=== PATIENT | male | born 1950 | race Caucasian/White ===

== ENCOUNTER 2020-07-30 10:33 | Outpatient (REF) | payer MEDICARE, SELFPAY | END 2020-07-30 10:34 | disposition home or self-care (01) | LOC: HO.LAB 10:33 | PROVIDERS: PCP Internal Medicine; Visit Provider Internal Medicine | DX: Z95.2 Presence of prosthetic heart valve (principal); Z51.81 Encounter for therapeutic drug level monitoring; Z79.01 Long term (current) use of anticoagulants; Z20.828 Contact with and (suspected) exposure to other viral communicable diseases | CPT/HCPCS: 85610; 87635; 99211 ==

== ENCOUNTER 2020-08-27 11:25 | Outpatient (REF) | payer MEDICARE, SELFPAY | END 2020-08-27 11:26 | disposition home or self-care (01) | LOC: HO.LAB 11:25 | PROVIDERS: Visit Provider Internal Medicine | DX: Z20.828 Contact with and (suspected) exposure to other viral communicable diseases (principal); Z79.01 Long term (current) use of anticoagulants | CPT/HCPCS: 85610; 99211; C9803; U0003 ==

== ENCOUNTER 2020-09-24 09:28 | Outpatient (REF) | payer MEDICARE, SELFPAY | END 2020-09-24 09:29 | disposition home or self-care (01) | LOC: HO.LAB 09:28 | PROVIDERS: Visit Provider Internal Medicine | DX: Z20.828 Contact with and (suspected) exposure to other viral communicable diseases (principal) | CPT/HCPCS: 85610; 99211; C9803; U0003 ==

== ENCOUNTER → 2020-10-22 10:27 | Outpatient (BNVA) | payer MEDICARE, SELFPAY | PROVIDERS: PCP Internal Medicine; Visit Provider Internal Medicine | DX: Z76.89 Persons encountering health services in other specified circumstances (principal) | CPT/HCPCS: 85610; 99211 ==

== ENCOUNTER 2020-10-22 11:28 | Outpatient (REF) | payer MEDICARE, SELFPAY | END 2020-10-22 11:29 | disposition home or self-care (01) | LOC: HO.LAB 11:28 | PROVIDERS: PCP Internal Medicine; Visit Provider Internal Medicine | DX: Z20.828 Contact with and (suspected) exposure to other viral communicable diseases (principal) | CPT/HCPCS: 85610; 99211; C9803; U0003 ==

== ENCOUNTER 2020-11-17 10:12 | Outpatient (REF) | payer MEDICARE, SELFPAY ==
[2020-11-17 10:46] LABS: MANUAL DIFF FLAG NO
[2020-11-17 10:54] LABS: Basophils Percent Auto 0.7 % (0-2); Eosinophils Absolute Auto 0.4 X10*3/uL (0.0-0.4); Eosinophils Percent Auto 7.8 % (0-4); Hematocrit 40.3 % (42-52); Hemoglobin 13.2 g/dl (14.0-18.0); Imm Gran Abs Auto 0.02 X10*3/uL (0.00-0.03); Imm Gran Pct Auto 0.4 % (0.0-0.4); Lymphocytes Absolute Auto 1.2 X10*3/uL (1.2-4.9); Lymphocytes Percent Auto 26.8 % (20-40); Mean Corpuscular HGB Conc 32.8 g/dl (31.0-36.0); Mean Corpuscular Hemoglobin 28.7 pg (27.0-33.0); Mean Corpuscular Volume 87.6 fL (80-98); Mean Platelet Volume 10.3 fL (9.4-12.4); Monocytes Absolute Auto 0.6 X10*3/uL (0.1-1.2); Monocytes Percent Auto 13.7 % (2-11); Neutrophils Absolute Auto 2.3 X10*3/uL (2.0-8.3); Neutrophils Percent Auto 50.6 % (45-73); Platelet Count 173 X10*3/uL (160-400); Red Cell Distribution Width 12.8 % (11.0-16.0); White Blood Count 4.6 X10*3/uL (4.8-10.8)
[2020-11-17 10:59] LABS: Glucose Urine UA NEG (NEG); Leukocyte Esterase Urine NEG (NEG); Nitrite Urine NEG (NEG); Specific Gravity - Urine 1.025 (1.005-1.025); Urine Blood NEG (NEG); Urine Ketones NEG (NEG); Urine Protein NEG (NEG-TRACE)
[2020-11-17 11:01] LABS: Appearance Urine CLEAR; Color Urine YELLOW
[2020-11-17 11:37] LABS: Alanine Aminotransferase 21 U/L (0-40); Albumin Level 4.4 g/dL (3.5-5.0); Alkaline Phosphatase 63 U/L (39-117); Anion Gap 12 (12-20); Aspartate Amino Transferase 28 U/L (5-37); Bilirubin Total 0.9 mg/dL (0.0-1.0); Blood Urea Nitrogen 15 mg/dL (9-16); Calcium 9.3 mg/dL (8.4-10.2); Carbon Dioxide 30 mmol/L (22-29); Chloride 102 mmol/L (96-108); Cholesterol 161 mg/dL; Estimated Glomerular Filt Rate > 60; Glucose Random 92 mg/dL (60-115); HDL Cholesterol 48 mg/dL; LDL Cholesterol Calculated 102 mg/dl; Potassium 4.6 mmol/l (3.3-5.1); Sodium 139 mmol/L (135-145); Total Protein 7.5 g/dL (6.5-8.0); Triglycerides 57 mg/dL
[2020-11-17 11:46] LABS: Prostate Specific Antigen 0.77 ng/mL (<0.05-4.0)
== END 2020-11-17 10:13 | disposition home or self-care (01) ==
LOC: HO.LAB 10:12
PROVIDERS: PCP Internal Medicine; Referring Provider Internal Medicine Cardiovascular Disease; Visit Provider Internal Medicine
DX: E78.2 Mixed hyperlipidemia (principal); E78.00 Pure hypercholesterolemia, unspecified; R35.1 Nocturia; D64.9 Anemia, unspecified; Z12.5 Encounter for screening for malignant neoplasm of prostate; Z95.2 Presence of prosthetic heart valve
CPT/HCPCS: 36415; 80053; 80061; 81003; 84153; 85025

== ENCOUNTER → 2020-11-20 09:58 | Outpatient (BNVA) | payer MEDICARE, SELFPAY | PROVIDERS: PCP Internal Medicine; Visit Provider Internal Medicine | DX: Z95.2 Presence of prosthetic heart valve (principal); Z51.81 Encounter for therapeutic drug level monitoring; Z79.01 Long term (current) use of anticoagulants | CPT/HCPCS: 85610; 99211 ==

== ENCOUNTER → 2020-12-18 10:04 | Outpatient (BNVA) | payer MEDICARE, SELFPAY | PROVIDERS: PCP Internal Medicine; Visit Provider Internal Medicine | DX: Z95.2 Presence of prosthetic heart valve (principal); Z51.81 Encounter for therapeutic drug level monitoring; Z79.01 Long term (current) use of anticoagulants | CPT/HCPCS: 85610; 99211 ==

== ENCOUNTER 2020-12-30 11:48 | Outpatient (REF) | payer MEDICARE, SELFPAY | END 2020-12-30 11:49 | disposition home or self-care (01) | LOC: HO.LAB 11:48 | PROVIDERS: Visit Provider Internal Medicine | DX: Z20.822 Contact with and (suspected) exposure to COVID-19 (principal) | CPT/HCPCS: 36415; C9803; U0003; U0005 ==

== ENCOUNTER → 2021-01-15 10:13 | Outpatient (BNVA) | payer MEDICARE, SELFPAY | PROVIDERS: PCP Internal Medicine; Visit Provider Internal Medicine | DX: Z95.2 Presence of prosthetic heart valve (principal); Z51.81 Encounter for therapeutic drug level monitoring; Z79.01 Long term (current) use of anticoagulants | CPT/HCPCS: 85610; 99211 ==

== ENCOUNTER → 2021-02-12 09:59 | Outpatient (BNVA) | payer MEDICARE, SELFPAY | PROVIDERS: PCP Internal Medicine; Visit Provider Internal Medicine | DX: Z95.2 Presence of prosthetic heart valve (principal); Z79.01 Long term (current) use of anticoagulants; Z51.81 Encounter for therapeutic drug level monitoring | CPT/HCPCS: 85610; 99211 ==

== ENCOUNTER → 2021-02-25 10:13 | Outpatient (BNVA) | payer MEDICARE, SELFPAY | PROVIDERS: PCP Internal Medicine; Visit Provider Internal Medicine | DX: Z95.2 Presence of prosthetic heart valve (principal); Z51.81 Encounter for therapeutic drug level monitoring; Z79.01 Long term (current) use of anticoagulants | CPT/HCPCS: 85610; 99211 ==

== ENCOUNTER 2021-03-18 10:48 | Outpatient (REF) | payer MEDICARE, SELFPAY ==
[2021-03-18 13:18] LABS: MANUAL DIFF FLAG NO
[2021-03-18 13:23] LABS: Basophils Percent Auto 0.9 % (0-2); Eosinophils Absolute Auto 0.4 X10*3/uL (0.0-0.4); Hematocrit 38.2 % (42-52); Hemoglobin 12.6 g/dl (14.0-18.0); Lymphocytes Absolute Auto 1.1 X10*3/uL (1.2-4.9); Lymphocytes Percent Auto 25.6 % (20-40); Mean Corpuscular Hemoglobin 29.4 pg (27.0-33.0); Mean Corpuscular Volume 89.3 fL (80-98); Mean Platelet Volume 11.5 fL (9.4-12.4); Monocytes Absolute Auto 0.6 X10*3/uL (0.1-1.2); Neutrophils Absolute Auto 2.2 X10*3/uL (2.0-8.3); Neutrophils Percent Auto 50.5 % (45-73); Platelet Count 170 X10*3/uL (160-400); Red Blood Count 4.28 X10*6/uL (4.60-5.80); Red Cell Distribution Width 12.8 % (11.0-16.0); White Blood Count 4.4 X10*3/uL (4.8-10.8)
[2021-03-18 13:44] LABS: Alanine Aminotransferase 19 U/L (0-40); Albumin Level 4.4 g/dL (3.5-5.0); Alkaline Phosphatase 59 U/L (39-117); Anion Gap 12 (12-20); Aspartate Amino Transferase 29 U/L (5-37); Bilirubin Total 0.7 mg/dL (0.0-1.0); Blood Urea Nitrogen 14 mg/dL (9-16); Calcium 9.2 mg/dL (8.4-10.2); Carbon Dioxide 29 mmol/L (22-29); Chloride 102 mmol/L (96-108); Estimated Glomerular Filt Rate > 60; Glucose Random 84 mg/dL (60-115); Iron 64 mcg/dL (45-160); Percent Iron Saturation 22 % (15-50); Potassium 4.6 mmol/L (3.3-5.1); Sodium 138 mmol/L (135-145); Total Iron Binding Capacity 285 mcg/dL (228-428); Total Protein 7.4 g/dL (6.5-8.0); Unsaturated Iron Binding 221 ug/dL
== END 2021-03-18 10:49 | disposition home or self-care (01) ==
LOC: HO.10HDL 10:48
PROVIDERS: Visit Provider Internal Medicine
DX: K21.9 Gastro-esophageal reflux disease without esophagitis (principal); D64.9 Anemia, unspecified; Z95.2 Presence of prosthetic heart valve
CPT/HCPCS: 36415; 80053; 83540; 85025

== ENCOUNTER → 2021-03-25 10:01 | Outpatient (BNVA) | payer MEDICARE, SELFPAY | PROVIDERS: PCP Internal Medicine; Visit Provider Internal Medicine | DX: Z95.2 Presence of prosthetic heart valve (principal); Z51.81 Encounter for therapeutic drug level monitoring; Z79.01 Long term (current) use of anticoagulants | CPT/HCPCS: 85610; 99211 ==

== ENCOUNTER → 2021-04-22 09:56 | Outpatient (BNVA) | payer MEDICARE, SELFPAY | PROVIDERS: PCP Internal Medicine; Visit Provider Internal Medicine | DX: Z95.2 Presence of prosthetic heart valve (principal); Z51.81 Encounter for therapeutic drug level monitoring; Z79.01 Long term (current) use of anticoagulants | CPT/HCPCS: 85610; 99211 ==

== ENCOUNTER → 2021-05-20 10:17 | Outpatient (BNVA) | payer MEDICARE, SELFPAY | PROVIDERS: PCP Internal Medicine; Visit Provider Internal Medicine | DX: Z95.2 Presence of prosthetic heart valve (principal); Z51.81 Encounter for therapeutic drug level monitoring; Z79.01 Long term (current) use of anticoagulants | CPT/HCPCS: 85610; 99211 ==

== ENCOUNTER → 2021-06-17 10:18 | Outpatient (BNVA) | payer MEDICARE, SELFPAY | PROVIDERS: PCP Internal Medicine; Visit Provider Internal Medicine | DX: Z95.2 Presence of prosthetic heart valve (principal); Z51.81 Encounter for therapeutic drug level monitoring; Z79.01 Long term (current) use of anticoagulants | CPT/HCPCS: 85610; 99211 ==

== ENCOUNTER 2021-07-15 11:18 | Outpatient (REF) | payer MEDICARE, SELFPAY ==
[2021-07-15 14:29] LABS: MANUAL DIFF FLAG NO
[2021-07-15 14:47] LABS: Basophils Percent Auto 0.8 % (0-2); Eosinophils Absolute Auto 0.3 X10*3/uL (0.0-0.4); Eosinophils Percent Auto 7.5 % (0-4); Hematocrit 35.5 % (42-52); Hemoglobin 11.7 g/dl (14.0-18.0); Imm Gran Abs Auto 0.01 X10*3/uL (0.00-0.03); Imm Gran Pct Auto 0.3 % (0.0-0.4); Lymphocytes Absolute Auto 1.1 X10*3/uL (1.2-4.9); Lymphocytes Percent Auto 26.5 % (20-40); Mean Corpuscular Hemoglobin 29.1 pg (27.0-33.0); Mean Corpuscular Volume 88.3 fL (80-98); Mean Platelet Volume 11.4 fL (9.4-12.4); Monocytes Absolute Auto 0.6 X10*3/uL (0.1-1.2); Monocytes Percent Auto 15.8 % (2-11); Neutrophils Percent Auto 49.1 % (45-73); Platelet Count 173 X10*3/uL (160-400); Red Blood Count 4.02 X10*6/uL (4.60-5.80); Red Cell Distribution Width 12.9 % (11.0-16.0)
[2021-07-15 15:07] LABS: Anion Gap 11 (12-20); Blood Urea Nitrogen 16 mg/dL (9-16); Carbon Dioxide 28 mmol/L (22-29); Chloride 104 mmol/L (96-108); Estimated Glomerular Filt Rate > 60; Glucose Random 83 mg/dL (60-115); Potassium 4.3 mmol/L (3.3-5.1); Sodium 139 mmol/L (135-145)
== END 2021-07-15 11:19 | disposition home or self-care (01) ==
LOC: HO.10HDL 11:18
PROVIDERS: Visit Provider Internal Medicine
DX: D64.9 Anemia, unspecified (principal); Z95.2 Presence of prosthetic heart valve
CPT/HCPCS: 36415; 80048; 85025

== ENCOUNTER → 2021-07-16 09:55 | Outpatient (BNVA) | payer MEDICARE, SELFPAY | PROVIDERS: PCP Internal Medicine; Visit Provider Internal Medicine | DX: Z95.2 Presence of prosthetic heart valve (principal); Z51.81 Encounter for therapeutic drug level monitoring; Z79.01 Long term (current) use of anticoagulants | CPT/HCPCS: 85610; 99211 ==

== ENCOUNTER → 2021-08-13 10:11 | Outpatient (BNVA) | payer MEDICARE, SELFPAY | PROVIDERS: PCP Internal Medicine; Visit Provider Internal Medicine | DX: Z95.2 Presence of prosthetic heart valve (principal); Z51.81 Encounter for therapeutic drug level monitoring; Z79.01 Long term (current) use of anticoagulants | CPT/HCPCS: 85610; 99211 ==

== ENCOUNTER → 2021-09-10 10:11 | Outpatient (BNVA) | payer MEDICARE, SELFPAY | PROVIDERS: PCP Internal Medicine; Visit Provider Internal Medicine | DX: Z95.2 Presence of prosthetic heart valve (principal); Z51.81 Encounter for therapeutic drug level monitoring; Z79.01 Long term (current) use of anticoagulants | CPT/HCPCS: 85610; 99211 ==

== ENCOUNTER → 2021-10-08 09:57 | Outpatient (BNVA) | payer MEDICARE, SELFPAY | PROVIDERS: PCP Internal Medicine; Visit Provider Internal Medicine | DX: Z95.2 Presence of prosthetic heart valve (principal); Z51.81 Encounter for therapeutic drug level monitoring; Z79.01 Long term (current) use of anticoagulants | CPT/HCPCS: 85610; 99211 ==

== ENCOUNTER 2021-10-13 14:19 | Outpatient (REF) | payer MEDICARE, SELFPAY ==
[2021-10-13 15:10] LABS: Influenza A PCR NEGATIVE (Negative); Influenza B PCR NEGATIVE (Negative); Resp Syncy Virus RNA Qual PCR NEGATIVE (Negative); SARS COV2 PCR INHOUSE NEGATIVE (Negative)
== END 2021-10-13 14:20 | disposition home or self-care (01) ==
LOC: HO.LNP 14:19
PROVIDERS: Visit Provider Internal Medicine
DX: Z20.822 Contact with and (suspected) exposure to COVID-19 (principal)
CPT/HCPCS: 0241U

== ENCOUNTER → 2021-11-05 09:59 | Outpatient (BNVA) | payer MEDICARE, SELFPAY | PROVIDERS: PCP Internal Medicine; Visit Provider Internal Medicine | DX: Z95.2 Presence of prosthetic heart valve (principal); Z51.81 Encounter for therapeutic drug level monitoring; Z79.01 Long term (current) use of anticoagulants | CPT/HCPCS: 85610; 99211 ==

== ENCOUNTER → 2021-12-03 09:57 | Outpatient (BNVA) | payer MEDICARE, SELFPAY | PROVIDERS: PCP Internal Medicine; Visit Provider Internal Medicine | DX: Z95.2 Presence of prosthetic heart valve (principal); Z51.81 Encounter for therapeutic drug level monitoring; Z79.01 Long term (current) use of anticoagulants | CPT/HCPCS: 85610; 99211 ==

== ENCOUNTER → 2021-12-31 10:03 | Outpatient (BNVA) | payer MEDICARE, SELFPAY | PROVIDERS: PCP Internal Medicine; Visit Provider Internal Medicine | DX: Z95.2 Presence of prosthetic heart valve (principal); Z51.81 Encounter for therapeutic drug level monitoring; Z79.01 Long term (current) use of anticoagulants | CPT/HCPCS: 85610; 99211 ==

== ENCOUNTER 2022-01-28 10:03 | Outpatient (REF) | payer MEDICARE, SELFPAY ==
[2022-01-28 11:04] LABS: MANUAL DIFF FLAG NO
[2022-01-28 11:52] LABS: INTERNATIONAL NORM RATIO 3.8 (0.9-1.1); Prothrombin Time 44.7 SEC (9.9-13.0)
[2022-01-28 12:00] LABS: Basophils Percent Auto 0.4 % (0-2); Eosinophils Absolute Auto 0.4 X10*3/uL (0.0-0.4); Eosinophils Percent Auto 9.3 % (0-4); Hematocrit 36.4 % (42.0-52.0); Imm Gran Abs Auto 0.01 X10*3/uL (0.00-0.03); Imm Gran Pct Auto 0.2 % (0.0-0.4); Lymphocytes Absolute Auto 1.2 X10*3/uL (1.2-4.9); Lymphocytes Percent Auto 26.2 % (20-40); Mean Corpuscular Hemoglobin 29.1 pg (27.0-33.0); Mean Corpuscular Volume 88.3 fL (80.0-98.0); Mean Platelet Volume 11.2 fL (9.4-12.4); Monocytes Absolute Auto 0.6 X10*3/uL (0.1-1.2); Monocytes Percent Auto 11.9 % (2-11); Neutrophils Absolute Auto 2.4 x10*3/uL (2.0-8.3); Platelet Count 151 X10*3/uL (160-400); Red Blood Count 4.12 X10*6/uL (4.60-5.80); White Blood Count 4.6 X10*3/uL (4.8-10.8)
[2022-01-28 12:09] LABS: Alanine Aminotransferase 23 U/L (0-40); Albumin Level 4.2 g/dL (3.5-5.0); Alkaline Phosphatase 56 U/L (39-117); Anion Gap 8 (12-20); Aspartate Amino Transferase 28 U/L (5-37); Bilirubin Total 0.6 mg/dL (0.0-1.0); Blood Urea Nitrogen 16 mg/dL (9-16); Calcium 9.2 mg/dL (8.4-10.2); Carbon Dioxide 31 mmol/L (22-29); Chloride 103 mmol/L (96-108); Cholesterol 154 mg/dL; Estimated Glomerular Filt Rate > 60; Glucose Fasting 89 mg/dL (60-99); HDL Cholesterol 45 mg/dL; Iron 47 mcg/dL (45-160); LDL Cholesterol Calculated 96 mg/dl; Percent Iron Saturation 17 % (15-50); Potassium 4.2 mmol/L (3.3-5.1); Sodium 138 mmol/L (135-145); Total Iron Binding Capacity 269 mcg/dL (228-428); Triglycerides 66 mg/dL; Unsaturated Iron Binding 222 ug/dL
[2022-01-28 12:27] LABS: Prostate Specific Antigen 0.86 ng/mL (<0.05-4.0)
== END 2022-01-28 10:04 | disposition home or self-care (01) ==
LOC: HO.LAB 10:03
PROVIDERS: Absent Provider Internal Medicine; PCP Internal Medicine; Visit Provider Internal Medicine
DX: Z12.5 Encounter for screening for malignant neoplasm of prostate (principal); E78.00 Pure hypercholesterolemia, unspecified; N40.0 Benign prostatic hyperplasia without lower urinary tract symptoms; D64.9 Anemia, unspecified; I48.91 Unspecified atrial fibrillation; Z95.2 Presence of prosthetic heart valve; Z51.81 Encounter for therapeutic drug level monitoring; Z79.01 Long term (current) use of anticoagulants
CPT/HCPCS: 36415; 80053; 80061; 83540; 84153; 85025; 85610; 99211

== ENCOUNTER → 2022-02-25 10:08 | Outpatient (BNVA) | payer MEDICARE, SELFPAY | PROVIDERS: PCP Internal Medicine; Visit Provider Internal Medicine | DX: Z95.2 Presence of prosthetic heart valve (principal); Z79.01 Long term (current) use of anticoagulants; Z51.81 Encounter for therapeutic drug level monitoring | CPT/HCPCS: 85610; 99211 ==

== ENCOUNTER → 2022-03-25 10:04 | Outpatient (BNVA) | payer MEDICARE, SELFPAY | PROVIDERS: PCP Internal Medicine; Visit Provider Internal Medicine | DX: Z95.2 Presence of prosthetic heart valve (principal); Z79.01 Long term (current) use of anticoagulants; Z51.81 Encounter for therapeutic drug level monitoring | CPT/HCPCS: 85610; 99211 ==

== ENCOUNTER → 2022-04-22 09:56 | Outpatient (BNVA) | payer MEDICARE, SELFPAY | PROVIDERS: PCP Internal Medicine; Visit Provider Internal Medicine | DX: Z95.2 Presence of prosthetic heart valve (principal); Z51.81 Encounter for therapeutic drug level monitoring; Z79.01 Long term (current) use of anticoagulants | CPT/HCPCS: 85610; 99211 ==

== ENCOUNTER 2022-04-29 11:57 | Outpatient (REF) | payer MEDICARE, SELFPAY ==
[2022-04-29 13:06] LABS: Blood Urea Nitrogen 19 mg/dL (9-16); Estimated Glomerular Filt Rate > 60
== END 2022-04-29 11:58 | disposition home or self-care (01) ==
LOC: HO.LAB 11:57
PROVIDERS: PCP Internal Medicine; Visit Provider Internal Medicine Cardiovascular Disease
DX: I71.2 Thoracic aortic aneurysm, without rupture (principal)
CPT/HCPCS: 36415; 82565; 84520

== ENCOUNTER 2022-05-03 07:52 | Outpatient (REF) | payer MEDICARE, SELFPAY ==
--- NOTE | ~2022-05-03 | CT_ITS ---
EXAMINATION: CT ANGIOGRAM CHEST CLINICAL INFORMATION: Thoracic aortic aneurysm. COMPARISON: Multiple prior chest radiographs and prior CTA chest 03/22/2018 with studies dating back to 10/11/2013. TECHNIQUE: Multiple axial images were obtained through the chest after the administration of 70 mL of Omnipaque 350 intravenous contrast. Extensive vascular post-processing including two-dimensional and three-dimensional reformatted images were created and reviewed on an independent workstation. This CT examination was performed using dose optimization techniques as appropriate, variously including the following: *Automated exposure control *Adjustment of mA and/or kV according to patient size (this includes techniques or standardized protocols for targeted exams where dose is matched to indication/reason for exam; i.e. extremities or head) *Use of iterative reconstruction technique DLP: 98 mGy-cm. VASCULAR FINDINGS: Once again seen are changes of repaired ascending aortic aneurysm with graft and placement of a prosthetic aortic valve. Compared to the most recent prior studies, there has been no recurrence of an aneurysm in diameter of the ascending aorta is about the same at 2.7 cm. Prior to the repair in 2012, the diameter of the [place] ascending aorta was 5 cm. The descending thoracic aorta remains normal in caliber. Three-vessel branching pattern of the aortic arch is seen with widely patent great vessels. The small visualized portion of the abdominal aorta demonstrates some mild calcific plaque. A minimal arcuate-type narrowing of the celiac stenosis is present without significant stenosis. The SMA is patent. Single patent renal arteries are seen bilaterally. NONVASCULAR FINDINGS: LUNGS: The lungs are clear with no evidence of inflammation or nodules. MEDIASTINUM: No mediastinal or hilar lymphadenopathy seen. Patient status post median sternotomy and ascending aorta repair as described above. PLEURA: There is no pleural effusion. No pleural mass or thickening. AXILLA: No lymphadenopathy. UPPER ABDOMEN: Unremarkable. OSSEOUS STRUCTURES: Mild degenerative changes present in the spine. There is mild anterior wedging of the T12 vertebral body. CT/CT angio chest aorta IMPRESSION: Stable repair of ascending thoracic aortic aneurysm. Fleischner guidelines were followed.
[2022-05-03] MEDS: iohexoL 350 MG/ML 100 ML INFUS..BTL IV (08:45)
== END 2022-05-03 07:53 | disposition home or self-care (01) ==
LOC: HO.CT 07:52
PROVIDERS: PCP Internal Medicine; Visit Provider Internal Medicine Cardiovascular Disease
DX: I71.2 Thoracic aortic aneurysm, without rupture (principal)
CPT/HCPCS: 71275; Q9967

== ENCOUNTER → 2022-05-20 09:58 | Outpatient (BNVA) | payer MEDICARE, SELFPAY | PROVIDERS: PCP Internal Medicine; Visit Provider Internal Medicine | DX: Z95.2 Presence of prosthetic heart valve (principal); Z79.01 Long term (current) use of anticoagulants; Z51.81 Encounter for therapeutic drug level monitoring | CPT/HCPCS: 85610; 99211 ==

== ENCOUNTER → 2022-06-17 10:27 | Outpatient (BNVA) | payer MEDICARE, SELFPAY | PROVIDERS: PCP Internal Medicine; Visit Provider Internal Medicine | DX: Z95.2 Presence of prosthetic heart valve (principal); Z79.01 Long term (current) use of anticoagulants; Z51.81 Encounter for therapeutic drug level monitoring | CPT/HCPCS: 85610; 99211 ==

== ENCOUNTER 2022-07-13 11:37 | Outpatient (REF) | payer MEDICARE, SELFPAY ==
[2022-07-13 13:38] LABS: MANUAL DIFF FLAG NO
[2022-07-13 13:44] LABS: Basophils Percent Auto 0.6 % (0-2); Eosinophils Absolute Auto 0.4 X10*3/uL (0.0-0.4); Eosinophils Percent Auto 8.1 % (0-4); Hematocrit 37.8 % (42.0-52.0); Hemoglobin 12.4 g/dl (14.0-18.0); Imm Gran Abs Auto 0.01 X10*3/uL (0.00-0.03); Imm Gran Pct Auto 0.2 % (0.0-0.4); Lymphocytes Absolute Auto 1.2 X10*3/uL (1.2-4.9); Mean Corpuscular HGB Conc 32.8 g/dl (31.0-36.0); Mean Corpuscular Hemoglobin 28.7 pg (27.0-33.0); Mean Corpuscular Volume 87.5 fL (80.0-98.0); Mean Platelet Volume 11.4 fL (9.4-12.4); Monocytes Absolute Auto 0.7 X10*3/uL (0.1-1.2); Monocytes Percent Auto 13.9 % (2-11); Neutrophils Absolute Auto 2.4 x10*3/uL (2.0-8.3); Neutrophils Percent Auto 51.2 % (45-73); Platelet Count 165 X10*3/uL (160-400); Red Blood Count 4.32 X10*6/uL (4.60-5.80); Red Cell Distribution Width 12.9 % (11.0-16.0); White Blood Count 4.7 X10*3/uL (4.8-10.8)
[2022-07-13 13:59] LABS: Iron 78 mcg/dL (45-160); Percent Iron Saturation 25 % (15-50); Total Iron Binding Capacity 318 mcg/dL (228-428); Unsaturated Iron Binding 240 ug/dL
== END 2022-07-13 11:38 | disposition home or self-care (01) ==
LOC: HO.10HDL 11:37
PROVIDERS: Visit Provider Internal Medicine
DX: D64.9 Anemia, unspecified (principal); I48.0 Paroxysmal atrial fibrillation; Z95.2 Presence of prosthetic heart valve
CPT/HCPCS: 36415; 83540; 85025

== ENCOUNTER → 2022-07-15 09:57 | Outpatient (BNVA) | payer MEDICARE, SELFPAY | PROVIDERS: PCP Internal Medicine; Visit Provider Internal Medicine | DX: Z95.2 Presence of prosthetic heart valve (principal); Z79.01 Long term (current) use of anticoagulants; Z51.81 Encounter for therapeutic drug level monitoring | CPT/HCPCS: 85610; 99211 ==

== ENCOUNTER → 2022-08-12 09:57 | Outpatient (BNVA) | payer MEDICARE, SELFPAY | PROVIDERS: PCP Internal Medicine; Visit Provider Internal Medicine | DX: Z95.2 Presence of prosthetic heart valve (principal); Z79.01 Long term (current) use of anticoagulants; Z51.81 Encounter for therapeutic drug level monitoring | CPT/HCPCS: 85610; 99211 ==

== ENCOUNTER → 2022-09-09 09:56 | Outpatient (BNVA) | payer MEDICARE, SELFPAY | PROVIDERS: PCP Internal Medicine; Visit Provider Internal Medicine | DX: Z95.2 Presence of prosthetic heart valve (principal); Z79.01 Long term (current) use of anticoagulants; Z51.81 Encounter for therapeutic drug level monitoring | CPT/HCPCS: 85610; 99211 ==

== ENCOUNTER → 2022-09-30 09:58 | Outpatient (BNVA) | payer MEDICARE, SELFPAY | PROVIDERS: PCP Internal Medicine; Visit Provider Internal Medicine | DX: Z95.2 Presence of prosthetic heart valve (principal); Z79.01 Long term (current) use of anticoagulants; Z51.81 Encounter for therapeutic drug level monitoring | CPT/HCPCS: 85610; 99211 ==

== ENCOUNTER → 2022-10-28 09:56 | Outpatient (BNVA) | payer MEDICARE, BC, SELFPAY | PROVIDERS: PCP Internal Medicine; Visit Provider Internal Medicine | DX: Z95.2 Presence of prosthetic heart valve (principal); Z79.01 Long term (current) use of anticoagulants; Z51.81 Encounter for therapeutic drug level monitoring | CPT/HCPCS: 85610; 99211 ==

== ENCOUNTER → 2022-11-25 10:07 | Outpatient (BNVA) | payer MEDICARE, SELFPAY | PROVIDERS: PCP Internal Medicine; Visit Provider Internal Medicine | DX: Z95.2 Presence of prosthetic heart valve (principal); Z79.01 Long term (current) use of anticoagulants; Z51.81 Encounter for therapeutic drug level monitoring | CPT/HCPCS: 85610; 99211 ==

== ENCOUNTER → 2022-12-16 09:56 | Outpatient (BNVA) | payer MEDICARE, SELFPAY | PROVIDERS: PCP Internal Medicine; Visit Provider Internal Medicine | DX: Z95.2 Presence of prosthetic heart valve (principal); Z79.01 Long term (current) use of anticoagulants; Z51.81 Encounter for therapeutic drug level monitoring | CPT/HCPCS: 85610; 99211 ==

== ENCOUNTER → 2022-12-30 09:57 | Outpatient (BNVA) | payer MEDICARE, SELFPAY | PROVIDERS: PCP Internal Medicine; Visit Provider Internal Medicine | DX: Z00.00 Encounter for general adult medical examination without abnormal findings (principal); Z95.2 Presence of prosthetic heart valve; Z51.81 Encounter for therapeutic drug level monitoring; Z79.01 Long term (current) use of anticoagulants; Z12.5 Encounter for screening for malignant neoplasm of prostate | CPT/HCPCS: 36415; 80053; 80061; 84153; 85025; 85610; 99211 ==

== ENCOUNTER 2022-12-30 10:42 | Outpatient (REF) | payer MEDICARE, SELFPAY ==
[2022-12-30 13:39] LABS: MANUAL DIFF FLAG NO
[2022-12-30 13:56] LABS: Basophils Percent Auto 0.7 % (0-2); Eosinophils Absolute Auto 0.6 X10*3/uL (0.0-0.4); Eosinophils Percent Auto 13.8 % (0-4); Hematocrit 37.2 % (42.0-52.0); Hemoglobin 12.2 g/dl (14.0-18.0); Imm Gran Abs Auto 0.01 X10*3/uL (0.00-0.03); Imm Gran Pct Auto 0.2 % (0.0-0.4); Lymphocytes Absolute Auto 1.2 X10*3/uL (1.2-4.9); Lymphocytes Percent Auto 26.6 % (20-40); Mean Corpuscular HGB Conc 32.8 g/dl (31.0-36.0); Mean Corpuscular Hemoglobin 28.8 pg (27.0-33.0); Mean Corpuscular Volume 87.9 fL (80.0-98.0); Monocytes Absolute Auto 0.6 X10*3/uL (0.1-1.2); Monocytes Percent Auto 12.3 % (2-11); Neutrophils Absolute Auto 2.1 x10*3/uL (2.0-8.3); Neutrophils Percent Auto 46.4 % (45-73); Platelet Count 155 X10*3/uL (160-400); Red Blood Count 4.23 X10*6/uL (4.60-5.80); White Blood Count 4.6 X10*3/uL (4.8-10.8)
[2022-12-30 15:50] LABS: Alanine Aminotransferase 22 U/L (0-40); Albumin Level 4.1 g/dL (3.5-5.0); Alkaline Phosphatase 54 U/L (39-117); Anion Gap 11 (12-20); Aspartate Amino Transferase 27 U/L (5-37); Bilirubin Total 0.8 mg/dL (0.0-1.0); Blood Urea Nitrogen 18 mg/dL (9-16); Calcium 8.9 mg/dL (8.4-10.2); Carbon Dioxide 30 mmol/L (22-29); Chloride 104 mmol/L (96-108); Cholesterol 163 mg/dL; Estimated Glomerular Filt Rate > 60; Glucose Fasting 89 mg/dL (60-99); HDL Cholesterol 47 mg/dL; LDL Cholesterol Calculated 102 mg/dl; Potassium 4.1 mmol/L (3.3-5.1); Sodium 141 mmol/L (135-145); Total Protein 6.7 g/dL (6.5-8.0); Triglycerides 73 mg/dL
[2022-12-30 16:14] LABS: Prostate Specific Antigen Scr 0.86 ng/mL (<0.05-4.0)
== END 2022-12-30 10:43 | disposition home or self-care (01) ==
LOC: HO.10HDL 10:42
PROVIDERS: Visit Provider Internal Medicine
DX: Z13.89 Encounter for screening for other disorder (principal)
CPT/HCPCS: 36415; 80053; 80061; 84153; 85025

== ENCOUNTER → 2023-01-27 09:58 | Outpatient (BNVA) | payer MEDICARE, SELFPAY | PROVIDERS: PCP Internal Medicine; Visit Provider Internal Medicine | DX: Z95.2 Presence of prosthetic heart valve (principal); Z51.81 Encounter for therapeutic drug level monitoring; Z79.01 Long term (current) use of anticoagulants | CPT/HCPCS: 85610; 99211 ==

== ENCOUNTER → 2023-02-24 09:54 | Outpatient (BNVA) | payer MEDICARE, SELFPAY | PROVIDERS: PCP Internal Medicine; Visit Provider Internal Medicine | DX: Z95.2 Presence of prosthetic heart valve (principal); Z79.01 Long term (current) use of anticoagulants; Z51.81 Encounter for therapeutic drug level monitoring | CPT/HCPCS: 85610; 99211 ==

== ENCOUNTER → 2023-03-24 09:51 | Outpatient (BNVA) | payer MEDICARE, SELFPAY | PROVIDERS: PCP Internal Medicine; Visit Provider Internal Medicine | DX: Z95.2 Presence of prosthetic heart valve (principal); Z79.01 Long term (current) use of anticoagulants; Z51.81 Encounter for therapeutic drug level monitoring | CPT/HCPCS: 85610; 99211 ==

== ENCOUNTER → 2023-04-14 09:56 | Outpatient (BNVA) | payer MEDICARE, SELFPAY | PROVIDERS: PCP Internal Medicine; Visit Provider Internal Medicine | DX: Z95.2 Presence of prosthetic heart valve (principal); Z79.01 Long term (current) use of anticoagulants; Z51.81 Encounter for therapeutic drug level monitoring | CPT/HCPCS: 85610; 99211 ==

== ENCOUNTER 2023-05-12 09:58 | Outpatient (AMB) | payer MEDICARE, SELFPAY ==
--- NOTE | 2023-05-12 10:02 | MHC.OFFVISCO ---
Intake Intake Visit Reasons: Anticoagulation Allergies No Known Allergies Allergy (Verified 05/12/23 09:58) Medication List - Last Reconciled 05/12/23 by Radhika Fleming RN atorvastatin 20 mg PO DAILY metoprolol succinate ER 25 mg PO DAILY mv,Ca,rcz-tkke-JW-lycopene 8 mg iron- 200 mcg-600 mcg (Centrum Men) 1 tab PO DAILY pantoprazole 20 mg PO DAILY pneumoc 13-chery conj-dip cr(PF) mL IM warfarin See Protocol 10mgmwf/ 5mg x4days; Nursing Note INR: 3.1- in therapeutic range Medications and supplements reviewed- no changes No changes in health, diet, medications, or supplements, Denies any signs and symptoms of bleeding or bruising or clotting. Bleeding, bruising, clotting discussed Nutritional guidance given pt states issues with lower dentures- f/u by dentist soft foods enc, pt takes ensure daily Dose: 10mg x 3, 5mg x 4 F/U INR: 4 weeks Patient verbalizes understanding of instructions given Coding Level of Care Code Est Patient Level 1 Diagnoses Current use of anticoagulant therapy Z79.01 Results AMB INR Fingerstick AMB INR Fingerstick 3.1 Last Edit by Radhika Fleming RN on 05/12/23 10:04 Assessment & Plan Assessment & Plan (1) Current use of anticoagulant therapy: Code(s): Z79.01 - alf (current) use of anticoagulants Category: Medical
[2023-05-12 10:04] LABS: Prothrombin Time Whole Bld POC 37.5 sec (11.1-13.5); ~PT, ~INR - Anti Coag Clinic 3.1 (0.9-1.1)
== END 2023-05-12 10:08 | disposition home or self-care (01) ==
LOC: HO.ACS 09:58
PROVIDERS: PCP Internal Medicine; Visit Provider Internal Medicine
DX: Z79.01 Long term (current) use of anticoagulants (principal)

== ENCOUNTER → 2023-05-12 09:58 | Outpatient (BNVA) | payer MEDICARE, SELFPAY | PROVIDERS: PCP Internal Medicine; Visit Provider Internal Medicine | DX: Z95.2 Presence of prosthetic heart valve (principal); Z79.01 Long term (current) use of anticoagulants; Z51.81 Encounter for therapeutic drug level monitoring | CPT/HCPCS: 85610; 99211 ==

== ENCOUNTER 2023-06-09 10:04 | Outpatient (AMB) | payer MEDICARE, SELFPAY ==
--- NOTE | 2023-06-09 10:16 | MHC.OFFVISCO ---
Intake Intake Visit Reasons: Anticoagulation Allergies No Known Allergies Allergy (Verified 06/09/23 10:07) Medication List - Last Reconciled 06/09/23 by Joelle Krishnan RN atorvastatin 20 mg PO DAILY metoprolol succinate ER 25 mg PO DAILY mv,Ca,pma-ubzk-NQ-lycopene 8 mg iron- 200 mcg-600 mcg (Centrum Men) 1 tab PO DAILY pantoprazole 20 mg PO DAILY pneumoc 13-chery conj-dip cr(PF) mL IM warfarin See Protocol 10mgmwf/ 5mg x4days; Nursing Note Amb to ACS feeling ok, sts he had some swelling in right leg side of genao, and down to ankle I have screws, plates and rods in there and I think I over did it denies any reddness or heat to area. sts he initially was using warmth to area then switched to cold and improved quickly reviewed concerns with swelling and possible clot, sts its much better now Medications and supplements reviewed No other changes in health, diet, medications, or supplements Denies any unusual signs and symptoms of bruising, bleeding Denies any new Chest pain, SOB, or clotting INR: 2.8 in therapeutic range Nutritional guidance given: balance greens and reds in diet Dose: continue usual dosing;10mg x 3 days and 5mg x 4 days F/U INR: 4 weeks Patient verbalizes understanding of instructions given with accurate read back/ teach back of dosing Coding Level of Care Code Est Patient Level 1 Diagnoses Current use of anticoagulant therapy Z79.01 Time Spent (min) 15 Results AMB INR Fingerstick AMB INR Fingerstick 2.8 Last Edit by Joelle Krishnan RN on 06/09/23 10:15 interface failure Assessment & Plan Assessment & Plan (1) Current use of anticoagulant therapy: Code(s): Z79.01 - FDC (current) use of anticoagulants Category: Medical
[2023-06-09 10:23] LABS: Prothrombin Time Whole Bld POC 33.8 sec (11.1-13.5); ~PT, ~INR - Anti Coag Clinic 2.8 (0.9-1.1)
== END 2023-06-09 10:28 | disposition home or self-care (01) ==
LOC: HO.ACS 10:04
PROVIDERS: PCP Internal Medicine; Visit Provider Internal Medicine
DX: Z79.01 Long term (current) use of anticoagulants (principal)

== ENCOUNTER → 2023-06-09 10:04 | Outpatient (BNVA) | payer MEDICARE, SELFPAY | PROVIDERS: PCP Internal Medicine; Visit Provider Internal Medicine | DX: Z95.2 Presence of prosthetic heart valve (principal); Z79.01 Long term (current) use of anticoagulants; Z51.81 Encounter for therapeutic drug level monitoring | CPT/HCPCS: 85610; 99211 ==

== ENCOUNTER 2023-07-07 09:56 | Outpatient (AMB) | payer MEDICARE, SELFPAY ==
[2023-07-07 10:24] LABS: Prothrombin Time Whole Bld POC 30.6 sec (11.1-13.5); ~PT, ~INR - Anti Coag Clinic 2.6 (0.9-1.1)
--- NOTE | 2023-07-07 10:29 | MHC.OFFVISCO ---
Intake Intake Visit Reasons: Anticoagulation Allergies No Known Allergies Allergy (Verified 07/07/23 10:25) Medication List - Last Reconciled 07/07/23 by Valeria Jaime, RN atorvastatin 20 mg PO DAILY metoprolol succinate ER 25 mg PO DAILY mv,Ca,iwi-ylft-VZ-lycopene 8 mg iron- 200 mcg-600 mcg (Centrum Men) 1 tab PO DAILY pantoprazole 20 mg PO DAILY pneumoc 13-chery conj-dip cr(PF) mL IM warfarin See Protocol 10mgmwf/ 5mg x4days; Nursing Note INR: 2.6 in therapeutic range LEG FEELING BETTER Medications and supplements reviewed No changes in health, diet, medications, or supplements, Denies any signs and symptoms of bleeding or bruising or clotting. Bleeding, bruising, clotting discussed Nutritional guidance given Dose: 10MG X 3DAYS / 5MG X 4 DAYS F/U INR: 4 WEEKS Patient verbalizes understanding of instructions given Coding Level of Care Code Est Patient Level 1 Diagnoses Current use of anticoagulant therapy Z79.01 Assessment & Plan Assessment & Plan (1) Current use of anticoagulant therapy: Code(s): Z79.01 - assisted (current) use of anticoagulants Category: Medical
== END 2023-07-07 10:34 | disposition home or self-care (01) ==
LOC: HO.ACS 09:56
PROVIDERS: PCP Internal Medicine; Visit Provider Internal Medicine
DX: Z79.01 Long term (current) use of anticoagulants (principal)

== ENCOUNTER → 2023-07-07 09:56 | Outpatient (BNVA) | payer MEDICARE, SELFPAY | PROVIDERS: PCP Internal Medicine; Visit Provider Internal Medicine | DX: Z95.2 Presence of prosthetic heart valve (principal); Z79.01 Long term (current) use of anticoagulants; Z51.81 Encounter for therapeutic drug level monitoring | CPT/HCPCS: 85610; 99211 ==

== ENCOUNTER 2023-07-20 11:33 | Outpatient (REF) | payer MEDICARE, SELFPAY ==
[2023-07-20 13:24] LABS: MANUAL DIFF FLAG NO
[2023-07-20 13:37] LABS: Basophils Percent Auto 0.6 % (0-2); Eosinophils Absolute Auto 0.3 X10*3/uL (0.0-0.4); Eosinophils Percent Auto 6.2 % (0-4); Hematocrit 35.8 % (42.0-52.0); Hemoglobin 11.9 g/dl (14.0-18.0); Imm Gran Abs Auto 0.01 X10*3/uL (0.00-0.03); Imm Gran Pct Auto 0.2 % (0.0-0.4); Mean Corpuscular HGB Conc 33.2 g/dl (31.0-36.0); Mean Corpuscular Hemoglobin 29.2 pg (27.0-33.0); Mean Corpuscular Volume 87.7 fL (80.0-98.0); Mean Platelet Volume 11.2 fL (9.4-12.4); Monocytes Absolute Auto 0.6 X10*3/uL (0.1-1.2); Neutrophils Absolute Auto 2.9 x10*3/uL (2.0-8.3); Platelet Count 155 X10*3/uL (160-400); Red Blood Count 4.08 X10*6/uL (4.60-5.80); Red Cell Distribution Width 13.1 % (11.0-16.0); White Blood Count 4.9 X10*3/uL (4.8-10.8)
[2023-07-20 13:41] LABS: INTERNATIONAL NORM RATIO 3.1 (0.9-1.1); Prothrombin Time 37.4 SEC (11.1-13.3)
[2023-07-20 14:09] LABS: Alanine Aminotransferase 31 U/L (0-40); Albumin Level 4.2 g/dL (3.5-5.0); Alkaline Phosphatase 57 U/L (39-117); Anion Gap 10 (12-20); Aspartate Amino Transferase 37 U/L (5-37); Bilirubin Total 0.7 mg/dL (0.0-1.0); Blood Urea Nitrogen 17 mg/dL (9-16); Calcium 9.6 mg/dL (8.4-10.2); Carbon Dioxide 33 mmol/L (22-29); Chloride 101 mmol/L (96-108); Estimated Glomerular Filt Rate > 60; Glucose Random 75 mg/dL (60-115); Potassium 4.1 mmol/L (3.3-5.1); Sodium 140 mmol/L (135-145); Total Protein 7.3 g/dL (6.5-8.0)
== END 2023-07-20 11:34 | disposition home or self-care (01) ==
LOC: HO.10HDL 11:33
PROVIDERS: Visit Provider Internal Medicine
DX: I48.0 Paroxysmal atrial fibrillation (principal); D64.9 Anemia, unspecified; Z95.2 Presence of prosthetic heart valve
CPT/HCPCS: 36415; 80053; 85025; 85610

== ENCOUNTER 2023-08-04 09:55 | Outpatient (AMB) | payer MEDICARE, SELFPAY ==
[2023-08-04 10:03] LABS: Prothrombin Time Whole Bld POC 44.5 sec (11.1-13.5); ~PT, ~INR - Anti Coag Clinic 3.7 (0.9-1.1)
--- NOTE | 2023-08-04 10:07 | MHC.OFFVISCO ---
Intake Intake Visit Reasons: Anticoagulation Allergies No Known Allergies Allergy (Verified 08/04/23 09:57) Medication List - Last Reconciled 08/04/23 by Joelle Krishnan, RN atorvastatin 20 mg PO DAILY metoprolol succinate ER 25 mg PO DAILY mv,Ca,rik-inbn-MO-lycopene 8 mg iron- 200 mcg-600 mcg (Centrum Men) 1 tab PO DAILY pantoprazole 20 mg PO DAILY pneumoc 13-chery conj-dip cr(PF) mL IM warfarin See Protocol 10mgmwf/ 5mg x4days; Nursing Note Amb to ACS feeling well Medications and supplements reviewed, sts had FLU vaccine in last couple weeks No other changes in health, diet, medications, or supplements Denies any unusual signs and symptoms of bruising, bleeding Denies any new Chest pain, SOB, or clotting INR:3.7 above therapeutic range (2.5-3.5) Nutritional guidance given: balance greens and reds in diet, has good greens 3x weekly including brocolli and spinach, sts he didn't do usual greens this week Dose: continue usual dosing;10mg x 3 days and 5mg x 4 days F/U INR: 4 weeks Patient verbalizes understanding of instructions given with accurate read back/ teach back of dosing Coding Level of Care Code Est Patient Level 1 Diagnoses Current use of anticoagulant therapy Z79.01 Time Spent (min) 15 Assessment & Plan Assessment & Plan (1) Current use of anticoagulant therapy: Code(s): Z79.01 - FPC (current) use of anticoagulants Category: Medical
== END 2023-08-04 10:14 | disposition home or self-care (01) ==
LOC: HO.ACS 09:55
PROVIDERS: PCP Internal Medicine; Visit Provider Internal Medicine
DX: Z79.01 Long term (current) use of anticoagulants (principal)

== ENCOUNTER → 2023-08-04 09:55 | Outpatient (BNVA) | payer MEDICARE, SELFPAY | PROVIDERS: PCP Internal Medicine; Visit Provider Internal Medicine | DX: Z95.2 Presence of prosthetic heart valve (principal); Z79.01 Long term (current) use of anticoagulants; Z51.81 Encounter for therapeutic drug level monitoring | CPT/HCPCS: 85610; 99211 ==

== ENCOUNTER 2023-09-01 09:56 | Outpatient (AMB) | payer MEDICARE, SELFPAY ==
[2023-09-01 10:13] LABS: Prothrombin Time Whole Bld POC 36.6 sec (11.1-13.5)
--- NOTE | 2023-09-01 10:17 | MHC.OFFVISCO ---
Intake Intake Visit Reasons: Anticoagulation Allergies No Known Allergies Allergy (Verified 09/01/23 10:07) Medication List - Last Reconciled 09/01/23 by Joelle Krishnan, RN atorvastatin 20 mg PO DAILY metoprolol succinate ER 25 mg PO DAILY mv,Ca,wwe-xala-JF-lycopene 8 mg iron- 200 mcg-600 mcg (Centrum Men) 1 tab PO DAILY pantoprazole 20 mg PO DAILY warfarin See Protocol 10mgmwf/ 5mg x4days; Nursing Note Amb to ACS feeling well Medications and supplements reviewed No changes in health, diet, medications, or supplements Denies any unusual signs and symptoms of bruising, bleeding Denies any new Chest pain, SOB, or clotting INR:3.0 now in therapeutic range Nutritional guidance given: balance greens and reds in diet Dose: continue usual dosing; 10mg x 3 days and 5mg x 4 days F/U INR: 4 weeks Patient verbalizes understanding of instructions given with accurate read back/ teach back of dosing Coding Level of Care Code Est Patient Level 1 Diagnoses Current use of anticoagulant therapy Z79.01 Time Spent (min) 15 Assessment & Plan Assessment & Plan (1) Current use of anticoagulant therapy: Code(s): Z79.01 - intermodal customer service (current) use of anticoagulants Category: Medical
== END 2023-09-01 10:20 | disposition home or self-care (01) ==
LOC: HO.ACS 09:56
PROVIDERS: PCP Internal Medicine; Visit Provider Internal Medicine
DX: Z79.01 Long term (current) use of anticoagulants (principal)

== ENCOUNTER → 2023-09-01 09:56 | Outpatient (BNVA) | payer MEDICARE, SELFPAY | PROVIDERS: PCP Internal Medicine; Visit Provider Internal Medicine | DX: Z95.2 Presence of prosthetic heart valve (principal); Z79.01 Long term (current) use of anticoagulants; Z51.81 Encounter for therapeutic drug level monitoring | CPT/HCPCS: 85610; 99211 ==

== ENCOUNTER 2023-09-30 09:56 | Outpatient (AMB) | payer MEDICARE, SELFPAY ==
--- NOTE | 2023-09-30 10:18 | MHC.OFFVISCO ---
Intake Intake Visit Reasons: Anticoagulation Allergies No Known Allergies Allergy (Verified 09/30/23 10:15) Medication List - Last Reconciled 09/30/23 by Radhika Fleming RN atorvastatin 20 mg PO DAILY metoprolol succinate ER 25 mg PO DAILY mv,Ca,uie-ycwy-GA-lycopene 8 mg iron- 200 mcg-600 mcg (Centrum Men) 1 tab PO DAILY pantoprazole 20 mg PO DAILY warfarin See Protocol 10mgmwf/ 5mg x4days; Nursing Note INR: 2.7- in therapeutic range of 2.5-3.5 Medications and supplements reviewed no changes No changes in health, diet, medications, or supplements, Denies any signs and symptoms of bleeding or bruising or clotting. Bleeding, bruising, clotting discussed Nutritional guidance given Dose: 10mg x 3, 5mg x 4 F/U INR: 4 weeks Patient verbalizes understanding of instructions given Coding Level of Care Code Est Patient Level 1 Diagnoses Current use of anticoagulant therapy Z79.01 Results AMB INR Fingerstick AMB INR Fingerstick 2.7 Last Edit by Radhika Fleming RN on 09/30/23 10:20 Assessment & Plan Assessment & Plan (1) Current use of anticoagulant therapy: Code(s): Z79.01 - half-way (current) use of anticoagulants Category: Medical
[2023-09-30 10:20] LABS: Prothrombin Time Whole Bld POC 32.1 sec (11.1-13.5); ~PT, ~INR - Anti Coag Clinic 2.7 (0.9-1.1)
== END 2023-09-30 10:25 | disposition home or self-care (01) ==
LOC: HO.ACS 09:56
PROVIDERS: PCP Internal Medicine; Visit Provider Internal Medicine
DX: Z79.01 Long term (current) use of anticoagulants (principal)

== ENCOUNTER → 2023-09-30 09:56 | Outpatient (BNVA) | payer MEDICARE, SELFPAY | PROVIDERS: PCP Internal Medicine; Visit Provider Internal Medicine | DX: Z95.2 Presence of prosthetic heart valve (principal); Z79.01 Long term (current) use of anticoagulants; Z51.81 Encounter for therapeutic drug level monitoring | CPT/HCPCS: 85610; 99211 ==

== ENCOUNTER 2023-10-27 09:55 | Outpatient (AMB) | payer MEDICARE, SELFPAY ==
--- NOTE | 2023-10-27 10:12 | MHC.OFFVISCO ---
Intake Intake Visit Reasons: Anticoagulation Allergies No Known Allergies Allergy (Verified 10/27/23 10:01) Medication List - Last Reconciled 10/27/23 by Beatriz Arita RN atorvastatin 20 mg PO DAILY metoprolol succinate ER 25 mg PO DAILY mv,Ca,jpz-zyxx-CH-lycopene 8 mg iron- 200 mcg-600 mcg (Centrum Men) 1 tab PO DAILY pantoprazole 20 mg PO DAILY warfarin See Protocol 10mgmwf/ 5mg x4days; Nursing Note NO CP,SOB,DIET/MED CHANGES,FALLS OR SX OF BLEEDING. CONTINUE PRESENT DOSE AND FOLLOW-UP IN 4 WEEKS. GOOD UNDERSTANDING OF DOSING INSTR. Coding Level of Care Code Est Patient Level 1 Diagnoses Current use of anticoagulant therapy Z79.01 Results AMB INR Fingerstick AMB INR Fingerstick 3.6 Last Edit by Beatriz Arita RN on 10/27/23 10:09 Assessment & Plan Assessment & Plan (1) Current use of anticoagulant therapy: Code(s): Z79.01 - electromechanical technologist (current) use of anticoagulants Category: Medical
== END 2023-10-27 10:13 | disposition home or self-care (01) ==
LOC: HO.ACS 09:55
PROVIDERS: PCP Internal Medicine; Visit Provider Internal Medicine
DX: Z79.01 Long term (current) use of anticoagulants (principal)

== ENCOUNTER → 2023-10-27 09:55 | Outpatient (BNVA) | payer MEDICARE, SELFPAY | PROVIDERS: PCP Internal Medicine; Visit Provider Internal Medicine | DX: Z95.2 Presence of prosthetic heart valve (principal); Z79.01 Long term (current) use of anticoagulants; Z51.81 Encounter for therapeutic drug level monitoring | CPT/HCPCS: 85610; 99211 ==

== ENCOUNTER 2023-11-24 09:54 | Outpatient (AMB) | payer MEDICARE, SELFPAY ==
[2023-11-24 10:05] LABS: Prothrombin Time Whole Bld POC 42.1 sec (11.1-13.5); ~PT, ~INR - Anti Coag Clinic 3.5 (0.9-1.1)
--- NOTE | 2023-11-24 10:09 | MHC.OFFVISCO ---
Intake Intake Visit Reasons: Anticoagulation Allergies No Known Allergies Allergy (Verified 11/24/23 09:57) Medication List - Last Reconciled 11/24/23 by Joelle Krishnan RN atorvastatin 20 mg PO DAILY metoprolol succinate ER 25 mg PO DAILY mv,Ca,bja-lptg-XR-lycopene 8 mg iron- 200 mcg-600 mcg (Centrum Men) 1 tab PO DAILY pantoprazole 20 mg PO DAILY warfarin See Protocol 10mgmwf/ 5mg x4days; Nursing Note Amb to ACS feeling well Medications and supplements reviewed No changes in health, diet, medications, or supplements Denies any unusual signs and symptoms of bruising, bleeding Denies any new Chest pain, SOB, or clotting INR: 3.5 top of therapeutic range (2.5-3.5) Nutritional guidance given: pt noticed that he had less cooked spinach more asparagus and broccoli which puts him top of range vs bottom of range encouraged to have cooked spinach weekly x 1 and continue with other greens , be consistent. Also has daily Ensure, pt sts $80 monthly, encouraged to check if he can get a script for Ensure Dose: continue usual dosing; 10mg x 3 days and 5mg x 4 days F/U INR: 4 weeks Patient verbalizes understanding of instructions given with accurate read back/ teach back of dosing Questionnaires HAS-BLED Does the patient had uncontrolled Hypertension?: No Does the patient have renal disease?: No Does the patient have liver disease?: Yes Does the patient have a history of stroke?: No Has the patient had major bleeding or predisposition to bleeding?: Yes Does the patient have labile INRs?: No Is the patient over 65 years of age?: Yes Is the patient on medications that gives them a predisposition to bleeding?: Yes Does the patient use alcohol?: No HAS-BLED Score: 4 CHADSVASC Age: 66-74 Gender: Male Does the patient have a history of CHF?: No Does the patient have a history of Hypertension?: No Does the patient have a history of Stroke/TIA/Thromboembolism?: No Does the patient have a history of Vascular Disease (prior [place], PAD or aortic plaque)?: Yes Does the patient have a history of Diabetes?: No CHADS VACS Score: 2 Louis Prediction Score Rsk VTE Active Cancer: No Previous VTE, excluding superficial vein thrombosis: No Reduced mobility: No Already known Thrombophilic Condition: Yes With-in last month Trauma and/or Surgery: No Elderly 70 year or older: Yes Heart and/or Respiratory Failure: No Acute Myocardial infarction and/or Ischemic Stroke: No Acute Infection and/or Rheumatologic Disorder: No Obesity (BMI 30 or greater): No Ongoing Hormonal Treatment: No Score: 4 Louis Score less than 4; Low Risk of VTE Louis Score 4 or greater; High Risk of VTE Coding Level of Care Code Est Patient Level 1 Diagnoses Current use of anticoagulant therapy Z79.01 Time Spent (min) 15 Results AMB INR Fingerstick AMB INR Fingerstick 3.5 Last Edit by Joelle Krishnan RN on 11/24/23 10:06 interface failure Assessment & Plan Assessment & Plan (1) Current use of anticoagulant therapy: Code(s): 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
== END 2023-11-24 10:23 | disposition home or self-care (01) ==
LOC: HO.ACS 09:54
PROVIDERS: PCP Internal Medicine; Visit Provider Internal Medicine
DX: Z79.01 Long term (current) use of anticoagulants (principal)

== ENCOUNTER → 2023-11-24 09:54 | Outpatient (BNVA) | payer MEDICARE, SELFPAY | PROVIDERS: PCP Internal Medicine; Visit Provider Internal Medicine | DX: Z95.2 Presence of prosthetic heart valve (principal); Z51.81 Encounter for therapeutic drug level monitoring; Z79.01 Long term (current) use of anticoagulants | CPT/HCPCS: 85610; 99211 ==

== ENCOUNTER 2023-12-22 10:01 | Outpatient (AMB) | payer MEDICARE, SELFPAY ==
[2023-12-22 10:19] LABS: Prothrombin Time Whole Bld POC 44.1 sec (11.1-13.5); ~PT, ~INR - Anti Coag Clinic 3.7 (0.9-1.1)
--- NOTE | 2023-12-22 10:29 | MHC.OFFVISCO ---
Intake Intake Visit Reasons: Anticoagulation Allergies No Known Allergies Allergy (Verified 12/22/23 10:14) Medication List - Last Reconciled 12/22/23 by Valeria Jaime RN atorvastatin 20 mg PO DAILY metoprolol succinate ER 25 mg PO DAILY mv,Ca,kmz-wboh-UE-lycopene 8 mg iron- 200 mcg-600 mcg (Centrum Men) 1 tab PO DAILY pantoprazole 20 mg PO DAILY warfarin See Protocol 10mgmwf/ 5mg x4days; Nursing Note INR: 3.7 ALMOST in therapeutic range Medications and supplements reviewed pt has been taking CoQ 10 since October, Ensure had cut back a little bit due to cost, and has not had usual amt of spinach, trying to get ensure at [facility] Denies any signs and symptoms of bleeding or bruising or clotting. Bleeding, bruising, clotting discussed Nutritional guidance given- REVIEW FOOD LIST WEEKLY Dose: KEEP SAME FOR NOW 10MG X3DAYS/ 5MG X4DAYS F/U INR: 2 weeks Patient verbalizes understanding of instructions given Coding Level of Care Code Est Patient Level 1 Diagnoses Current use of anticoagulant therapy Z79.01 Assessment & Plan Assessment & Plan (1) Current use of anticoagulant therapy: Code(s): Z79.01 - correction (current) use of anticoagulants Category: Medical Medications: New coenzyme Q10 100 mg PO DAILY
== END 2023-12-22 10:34 | disposition home or self-care (01) ==
LOC: HO.ACS 10:01
PROVIDERS: PCP Internal Medicine; Visit Provider Internal Medicine
DX: Z79.01 Long term (current) use of anticoagulants (principal)

== ENCOUNTER → 2023-12-22 10:01 | Outpatient (BNVA) | payer MEDICARE, SELFPAY | PROVIDERS: PCP Internal Medicine; Visit Provider Internal Medicine | DX: Z95.2 Presence of prosthetic heart valve (principal); Z79.01 Long term (current) use of anticoagulants; Z51.81 Encounter for therapeutic drug level monitoring | CPT/HCPCS: 85610; 99211 ==

== ENCOUNTER 2023-12-28 10:55 | Outpatient (REF) | payer MEDICARE, SELFPAY ==
[2023-12-28 11:26] LABS: MANUAL DIFF FLAG NO
[2023-12-28 11:39] LABS: Basophils Percent Auto 0.6 % (0-2); Eosinophils Absolute Auto 0.5 X10*3/uL (0.0-0.4); Eosinophils Percent Auto 10.9 % (0-4); Hematocrit 36.3 % (42.0-52.0); Hemoglobin 12.2 g/dl (14.0-18.0); Imm Gran Abs Auto 0.01 X10*3/uL (0.00-0.03); Imm Gran Pct Auto 0.2 % (0.0-0.4); Lymphocytes Absolute Auto 1.1 X10*3/uL (1.2-4.9); Mean Corpuscular HGB Conc 33.6 g/dl (31.0-36.0); Mean Corpuscular Hemoglobin 29.3 pg (27.0-33.0); Mean Corpuscular Volume 87.3 fL (80.0-98.0); Mean Platelet Volume 11.1 fL (9.4-12.4); Monocytes Absolute Auto 0.5 X10*3/uL (0.1-1.2); Monocytes Percent Auto 11.3 % (2-11); Neutrophils Absolute Auto 2.5 x10*3/uL (2.0-8.3); Platelet Count 149 X10*3/uL (160-400); Red Blood Count 4.16 X10*6/uL (4.60-5.80); Red Cell Distribution Width 12.9 % (11.0-16.0); White Blood Count 4.7 X10*3/uL (4.8-10.8)
[2023-12-28 12:09] LABS: INTERNATIONAL NORM RATIO 3.2 (0.9-1.1); Prothrombin Time 38.5 SEC (11.1-13.3)
[2023-12-28 12:39] LABS: Prostate Specific Antigen Scr 0.78 ng/mL (<0.05-4.0)
[2023-12-28 12:55] LABS: Alanine Aminotransferase 24 U/L (0-40); Albumin Level 4.1 g/dL (3.5-5.0); Alkaline Phosphatase 60 U/L (39-117); Anion Gap 7 (12-20); Aspartate Amino Transferase 28 U/L (5-37); Bilirubin Total 0.6 mg/dL (0.0-1.0); Blood Urea Nitrogen 15 mg/dL (9-16); Calcium 9.2 mg/dL (8.4-10.2); Carbon Dioxide 31 mmol/L (22-29); Chloride 106 mmol/L (96-108); Cholesterol 162 mg/dL (<200); Estimated Glomerular Filt Rate > 60; Glucose Fasting 93 mg/dL (60-99); HDL Cholesterol 50 mg/dL (>40); LDL Cholesterol Calculated 98 mg/dL (<100); Potassium 4.1 mmol/L (3.3-5.1); Sodium 140 mmol/L (135-145); Total Protein 7.4 g/dL (6.5-8.0); Triglycerides 73 mg/dL (<150)
== END 2023-12-28 10:56 | disposition home or self-care (01) ==
LOC: HO.LAB 10:55
PROVIDERS: PCP Internal Medicine; Visit Provider Internal Medicine
DX: K21.9 Gastro-esophageal reflux disease without esophagitis (principal); E78.00 Pure hypercholesterolemia, unspecified; N40.0 Benign prostatic hyperplasia without lower urinary tract symptoms; Z95.2 Presence of prosthetic heart valve; Z12.5 Encounter for screening for malignant neoplasm of prostate
CPT/HCPCS: 36415; 80053; 80061; 84153; 85025; 85610

== ENCOUNTER 2024-01-05 09:56 | Outpatient (AMB) | payer MEDICARE, SELFPAY ==
--- NOTE | 2024-01-05 10:19 | MHC.OFFVISCO ---
Intake Intake Visit Reasons: Anticoagulation Allergies No Known Allergies Allergy (Verified 01/05/24 10:04) Medication List - Last Reconciled 01/05/24 by Joelle Krishnan, RN atorvastatin 20 mg PO DAILY coenzyme Q10 100 mg PO DAILY metoprolol succinate ER 25 mg PO DAILY mv,Ca,lnl-qsty-MI-lycopene 8 mg iron- 200 mcg-600 mcg (Centrum Men) 1 tab PO DAILY pantoprazole 20 mg PO DAILY warfarin See Protocol 10mgmwf/ 5mg x4days; Nursing Note Amb to ACS feeling well Medications and supplements reviewed Pt sts he is drinking ensure daily but is looking into alternatives due to cost No other changes in health, diet, medications, or supplements Denies any unusual signs and symptoms of bruising, bleeding Denies any new Chest pain, SOB, or clotting INR: 3.6 just above therapeutic range 2.5-3.5 Nutritional guidance given: balance greens and reds in diet, look at protein supplements as pt thinks he might make start making smoothies also encouraged to check for programs to help defray cost of ensure, sts he has been looking Dose: continue usual dosing;10mg x 3 days and 5mg x 4 days F/U INR:2 weeks while pt making dietary changes Patient verbalizes understanding of instructions given with accurate read back/ teach back of dosing Coding Level of Care Code Est Patient Level 1 Diagnoses Current use of anticoagulant therapy Z79.01 Time Spent (min) 15 Results AMB INR Fingerstick AMB INR Fingerstick 3.6 Last Edit by Joelle Krishnan RN on 01/05/24 10:18 interface delay Assessment & Plan Assessment & Plan (1) Current use of anticoagulant therapy: Code(s): 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
[2024-01-05 10:20] LABS: Prothrombin Time Whole Bld POC 43.7 sec (11.1-13.5); ~PT, ~INR - Anti Coag Clinic 3.6 (0.9-1.1)
== END 2024-01-05 11:52 | disposition home or self-care (01) ==
LOC: HO.ACS 09:56
PROVIDERS: PCP Internal Medicine; Visit Provider Internal Medicine
DX: Z79.01 Long term (current) use of anticoagulants (principal)

== ENCOUNTER → 2024-01-05 09:56 | Outpatient (BNVA) | payer MEDICARE, SELFPAY | PROVIDERS: PCP Internal Medicine; Visit Provider Internal Medicine | DX: Z95.2 Presence of prosthetic heart valve (principal); Z79.01 Long term (current) use of anticoagulants; Z51.81 Encounter for therapeutic drug level monitoring | CPT/HCPCS: 85610; 99211 ==

== ENCOUNTER 2024-01-19 09:54 | Outpatient (AMB) | payer MEDICARE, SELFPAY ==
[2024-01-19 10:08] LABS: Prothrombin Time Whole Bld POC 37.5 sec (11.1-13.5); ~PT, ~INR - Anti Coag Clinic 3.1 (0.9-1.1)
--- NOTE | 2024-01-19 10:15 | MHC.OFFVISCO ---
Intake Intake Visit Reasons: Anticoagulation Allergies No Known Allergies Allergy (Verified 01/19/24 10:02) Medication List - Last Reconciled 01/19/24 by Joelle Connor, DARIO atorvastatin 20 mg PO DAILY coenzyme Q10 100 mg PO DAILY metoprolol succinate ER 25 mg PO DAILY mv,Ca,ilz-ukps-PJ-lycopene 8 mg iron- 200 mcg-600 mcg (Centrum Men) 1 tab PO DAILY pantoprazole 20 mg PO DAILY warfarin See Protocol 10mgmwf/ 5mg x4days; Nursing Note INR: 3.1 in therapeutic range of 2.5-3.5 Medications and supplements reviewed: no changes No changes in health, diet, medications, or supplements, Denies any signs and symptoms of bleeding or bruising or clotting. Bleeding, bruising, clotting discussed Nutritional guidance given to continue to balance greens and reds Pt states his INR has been high, 3.6, 3.7, due to not having as much ensure because the cost of it went way up. He started to have other greens to balance reds and greens. 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
== END 2024-01-19 10:23 | disposition home or self-care (01) ==
LOC: HO.ACS 09:54
PROVIDERS: PCP Internal Medicine; Visit Provider Internal Medicine
DX: Z79.01 Long term (current) use of anticoagulants (principal)

== ENCOUNTER → 2024-01-19 09:54 | Outpatient (BNVA) | payer MEDICARE, SELFPAY | PROVIDERS: PCP Internal Medicine; Visit Provider Internal Medicine | DX: Z95.2 Presence of prosthetic heart valve (principal); Z79.01 Long term (current) use of anticoagulants; Z51.81 Encounter for therapeutic drug level monitoring | CPT/HCPCS: 85610; 99211 ==

== ENCOUNTER 2024-02-16 09:55 | Outpatient (AMB) | payer MEDICARE, SELFPAY ==
[2024-02-16 10:13] LABS: Prothrombin Time Whole Bld POC 38.3 sec (11.1-13.5); ~PT, ~INR - Anti Coag Clinic 3.2 (0.9-1.1)
--- NOTE | 2024-02-16 10:22 | MHC.OFFVISCO ---
Intake Intake Visit Reasons: Anticoagulation Allergies No Known Allergies Allergy (Verified 02/16/24 10:05) Medication List - Last Reconciled 02/16/24 by Valeria Jaime RN atorvastatin 20 mg PO DAILY coenzyme Q10 100 mg PO DAILY metoprolol succinate ER 25 mg PO DAILY mv,Ca,vrp-nrsh-GA-lycopene 8 mg iron- 200 mcg-600 mcg (Centrum Men) 1 tab PO DAILY pantoprazole 20 mg PO DAILY warfarin See Protocol 10mgmwf/ 5mg x4days; Nursing Note INR: 3.2 in therapeutic range Medications and supplements reviewed No changes in health, diet, medications, or supplements, Denies any signs and symptoms of bleeding or bruising or clotting. Bleeding, bruising, clotting discussed Nutritional guidance given Dose: 10MG X 3 DAYS/ 5MG X 4 DAYS F/U INR: 4 WEEKS Patient verbalizes understanding of instructions given Coding Level of Care Code Est Patient Level 1 Diagnoses Current use of anticoagulant therapy Z79.01 Assessment & Plan Assessment & Plan (1) Current use of anticoagulant therapy: Code(s): Z79.01 - alf (current) use of anticoagulants Category: Medical
== END 2024-02-16 10:25 | disposition home or self-care (01) ==
LOC: HO.ACS 09:55
PROVIDERS: PCP Internal Medicine; Visit Provider Internal Medicine
DX: Z79.01 Long term (current) use of anticoagulants (principal)

== ENCOUNTER → 2024-02-16 09:55 | Outpatient (BNVA) | payer MEDICARE, SELFPAY | PROVIDERS: PCP Internal Medicine; Visit Provider Internal Medicine | DX: Z95.2 Presence of prosthetic heart valve (principal); Z51.81 Encounter for therapeutic drug level monitoring; Z79.01 Long term (current) use of anticoagulants | CPT/HCPCS: 85610; 99211 ==

== ENCOUNTER 2024-03-15 09:57 | Outpatient (AMB) | payer MEDICARE, SELFPAY ==
--- NOTE | 2024-03-15 10:05 | MHC.OFFVISCO ---
Intake Intake Visit Reasons: Anticoagulation Allergies No Known Allergies Allergy (Verified 03/15/24 10:00) Medication List - Last Reconciled 03/15/24 by Radhika Fleming RN atorvastatin 20 mg PO DAILY coenzyme Q10 100 mg PO DAILY metoprolol succinate ER 25 mg PO DAILY mv,Ca,cic-nelm-BZ-lycopene 8 mg iron- 200 mcg-600 mcg (Centrum Men) 1 tab PO DAILY pantoprazole 20 mg PO DAILY warfarin See Protocol 10mgmwf/ 5mg x4days; Nursing Note INR: 3.0- in therapeutic range of 2.5-3.0 Medications and supplements reviewed- no changes No changes in health, diet, medications, or supplements, Denies any signs and symptoms of bleeding or bruising or clotting. 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
[2024-03-15 10:07] LABS: Prothrombin Time Whole Bld POC 36.5 sec (11.1-13.5)
== END 2024-03-15 10:11 | disposition home or self-care (01) ==
LOC: HO.ACS 09:57
PROVIDERS: PCP Internal Medicine; Visit Provider Internal Medicine
DX: Z79.01 Long term (current) use of anticoagulants (principal)

== ENCOUNTER → 2024-03-15 09:57 | Outpatient (BNVA) | payer MEDICARE, SELFPAY | PROVIDERS: PCP Internal Medicine; Visit Provider Internal Medicine | DX: Z95.2 Presence of prosthetic heart valve (principal); Z79.01 Long term (current) use of anticoagulants; Z51.81 Encounter for therapeutic drug level monitoring | CPT/HCPCS: 85610; 99211 ==

== ENCOUNTER 2024-04-12 10:03 | Outpatient (AMB) | payer MEDICARE, SELFPAY ==
[2024-04-12 10:28] LABS: ~PT, ~INR - Anti Coag Clinic 3.7 (0.9-1.1)
--- NOTE | 2024-04-12 10:31 | MHC.OFFVISCO ---
Intake Intake Visit Reasons: Anticoagulation Allergies No Known Allergies Allergy (Verified 04/12/24 10:21) Medication List - Last Reconciled 04/12/24 by Joelle Krishnan, RN atorvastatin 20 mg PO DAILY coenzyme Q10 100 mg PO DAILY metoprolol succinate ER 25 mg PO DAILY mv,Ca,pjn-wpqx-EP-lycopene 8 mg iron- 200 mcg-600 mcg (Centrum Men) 1 tab PO DAILY pantoprazole 20 mg PO DAILY warfarin See Protocol 10mgmwf/ 5mg x4days; Nursing Note Amb to ACS feeling well, however sts he dropped a brick on his right foot pt indicates he did that a month ago and had bad bruising and this time hit same spot sts it is very bruised, denies marian breaks in skin, sts he has been icing it and soaking it in epsom salt warm water soaks sts he took a couple IBU for the pain on Tuesday, sts it is better now Medications and supplements reviewed No other changes in health, diet, medications, or supplements, Denies any other signs and symptoms of bleeding, bruising, or clotting. INR 3.7 above therapeutic range 2.5-3.5, possibly due to inflammation, IBU and less cooked greens Dose: continue same dosing 10mg x 3 days and 5mg x 4 days Nutritional guidance given: eat cooked spinach today if available- serving, otherwise have cooked broccoli, brussels sprouts, or cabbage next 2 days, continue with ensure and try to be consistent with cooked greens F/U INR: 3 weeks Patient verbalizes understanding of instructions given Coding Level of Care Code Est Patient Level 1 Diagnoses Current use of anticoagulant therapy Z79.01 Time Spent (min) 15 Assessment & Plan Assessment & Plan (1) Current use of anticoagulant therapy: Code(s): Z79.01 - long term care pharmacist (current) use of anticoagulants Category: Medical
== END 2024-04-12 10:43 | disposition home or self-care (01) ==
LOC: HO.ACS 10:03
PROVIDERS: PCP Internal Medicine; Visit Provider Internal Medicine
DX: Z79.01 Long term (current) use of anticoagulants (principal)

== ENCOUNTER → 2024-04-12 10:03 | Outpatient (BNVA) | payer MEDICARE, SELFPAY | PROVIDERS: PCP Internal Medicine; Visit Provider Internal Medicine | DX: Z95.2 Presence of prosthetic heart valve (principal); Z79.01 Long term (current) use of anticoagulants; Z51.81 Encounter for therapeutic drug level monitoring | CPT/HCPCS: 85610; 99211 ==

== ENCOUNTER 2024-05-03 09:54 | Outpatient (AMB) | payer MEDICARE, SELFPAY ==
[2024-05-03 10:22] LABS: Prothrombin Time Whole Bld POC 39.8 sec (11.1-13.5); ~PT, ~INR - Anti Coag Clinic 3.3 (0.9-1.1)
--- NOTE | 2024-05-03 10:22 | MHC.OFFVISCO ---
Intake Intake Visit Reasons: Anticoagulation Allergies No Known Allergies Allergy (Verified 05/03/24 10:16) Medication List - Last Reconciled 05/03/24 by Valeria Jaime, RN atorvastatin 20 mg PO DAILY coenzyme Q10 100 mg PO DAILY metoprolol succinate ER 25 mg PO DAILY mv,Ca,dys-smrq-ZL-lycopene 8 mg iron- 200 mcg-600 mcg (Centrum Men) 1 tab PO DAILY pantoprazole 20 mg PO DAILY warfarin See Protocol 10mgmwf/ 5mg x4days; Nursing Note INR: 3.3 in therapeutic range Medications and supplements reviewed No changes in health, diet, medications, or supplements, Denies any signs and symptoms of bleeding or bruising or clotting. Bleeding, bruising, clotting discussed Nutritional guidance given Dose: 10mg mwf/ 5mg x 4 days F/U INR: 4 weeks Patient verbalizes understanding of instructions given Coding Level of Care Code Est Patient Level 1 Diagnoses Current use of anticoagulant therapy Z79.01 Assessment & Plan Assessment & Plan (1) Current use of anticoagulant therapy: Code(s): Z79.01 - shelter (current) use of anticoagulants Category: Medical
== END 2024-05-03 10:32 | disposition home or self-care (01) ==
LOC: HO.ACS 09:54
PROVIDERS: PCP Internal Medicine; Visit Provider Internal Medicine
DX: Z79.01 Long term (current) use of anticoagulants (principal)

== ENCOUNTER → 2024-05-03 09:54 | Outpatient (BNVA) | payer MEDICARE, SELFPAY | PROVIDERS: PCP Internal Medicine; Visit Provider Internal Medicine | DX: Z95.2 Presence of prosthetic heart valve (principal); Z79.01 Long term (current) use of anticoagulants; Z51.81 Encounter for therapeutic drug level monitoring | CPT/HCPCS: 85610; 99211 ==

== ENCOUNTER 2024-05-31 09:57 | Outpatient (AMB) | payer MEDICARE, SELFPAY ==
[2024-05-31 10:23] LABS: ~PT, ~INR - Anti Coag Clinic 3.8 (0.9-1.1)
--- NOTE | 2024-05-31 10:27 | MHC.OFFVISCO ---
Intake Intake Visit Reasons: Anticoagulation Allergies No Known Allergies Allergy (Verified 05/31/24 10:17) Medication List - Last Reconciled 05/31/24 by Valeria Jaime, RN atorvastatin 20 mg PO DAILY coenzyme Q10 100 mg PO DAILY metoprolol succinate ER 25 mg PO DAILY mv,Ca,oba-wgiu-SY-lycopene 8 mg iron- 200 mcg-600 mcg (Centrum Men) 1 tab PO DAILY pantoprazole 20 mg PO DAILY warfarin See Protocol 10mgmwf/ 5mg x4days; Nursing Note INR: 3.8 in therapeutic range Medications and supplements reviewed No changes in health, diet, medications, or supplements, Denies any signs and symptoms of bleeding or bruising or clotting. 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
== END 2024-05-31 10:30 | disposition home or self-care (01) ==
LOC: HO.ACS 09:57
PROVIDERS: PCP Internal Medicine; Visit Provider Internal Medicine
DX: Z79.01 Long term (current) use of anticoagulants (principal)

== ENCOUNTER → 2024-05-31 09:57 | Outpatient (BNVA) | payer MEDICARE, SELFPAY | PROVIDERS: PCP Internal Medicine; Visit Provider Internal Medicine | DX: Z95.2 Presence of prosthetic heart valve (principal); Z79.01 Long term (current) use of anticoagulants; Z51.81 Encounter for therapeutic drug level monitoring | CPT/HCPCS: 85610; 99211 ==

== ENCOUNTER 2024-06-28 09:53 | Outpatient (AMB) | payer MEDICARE, SELFPAY ==
[2024-06-28 10:17] LABS: ~PT, ~INR - Anti Coag Clinic 3.4 (0.9-1.1)
--- NOTE | 2024-06-28 10:33 | MHC.OFFVISCO ---
Intake Intake Visit Reasons: Anticoagulation Allergies No Known Allergies Allergy (Verified 06/28/24 10:09) Medication List - Last Reconciled 06/28/24 by Valeria Jaime RN atorvastatin 20 mg PO DAILY coenzyme Q10 100 mg PO DAILY metoprolol succinate ER 25 mg PO DAILY mv,Ca,iod-knxh-OF-lycopene 8 mg iron- 200 mcg-600 mcg (Centrum Men) 1 tab PO DAILY pantoprazole 20 mg PO DAILY warfarin See Protocol 10mgmwf/ 5mg x4days; Nursing Note INR: 3.4 in therapeutic range Medications and supplements reviewed Pt has been having ensure daily to help manage his warfarin - it cost him about $80/ month, plus he has greens 4-5 days / week and INRs still either over or at high end of range Denies any signs and symptoms of bleeding or bruising or clotting. Bleeding, bruising, clotting discussed Nutritional guidance given- decrease ensure to 3 days to week (may paula to off) Dose: decrease to 10mg x 2 days/ 5mg x 5 days F/U INR: 2 weeks Patient verbalizes understanding of instructions given Coding Level of Care Code Est Patient Level 1 Diagnoses Current use of anticoagulant therapy Z79.01 Results AMB INR Fingerstick AMB INR Fingerstick 3.4 Last Edit by Valeria Jaime RN on 06/28/24 10:20 MANUAL ENTRY Assessment & Plan Assessment & Plan (1) Current use of anticoagulant therapy: Code(s): Z79.01 - snf (current) use of anticoagulants Category: Medical
== END 2024-06-28 10:39 | disposition home or self-care (01) ==
LOC: HO.ACS 09:53
PROVIDERS: PCP Internal Medicine; Visit Provider Internal Medicine
DX: Z79.01 Long term (current) use of anticoagulants (principal)

== ENCOUNTER → 2024-06-28 09:53 | Outpatient (BNVA) | payer MEDICARE, SELFPAY | PROVIDERS: PCP Internal Medicine; Visit Provider Internal Medicine | DX: Z95.2 Presence of prosthetic heart valve (principal); Z79.01 Long term (current) use of anticoagulants; Z51.81 Encounter for therapeutic drug level monitoring | CPT/HCPCS: 85610; 99211 ==

== ENCOUNTER 2024-07-12 10:05 | Outpatient (AMB) | payer MEDICARE, SELFPAY ==
--- NOTE | 2024-07-12 10:36 | MHC.OFFVISCO ---
Intake Intake Visit Reasons: Anticoagulation Allergies No Known Allergies Allergy (Verified 07/12/24 10:17) Medication List - Last Reconciled 07/12/24 by Beatriz Arita RN atorvastatin 20 mg PO DAILY coenzyme Q10 100 mg PO DAILY metoprolol succinate ER 25 mg PO DAILY mv,Ca,wgo-opja-XW-lycopene 8 mg iron- 200 mcg-600 mcg (Centrum Men) 1 tab PO DAILY pantoprazole 20 mg PO DAILY warfarin See Protocol 10mgmwf/ 5mg x4days; Nursing Note NO CP,SOB,DIET/MED CHANGES,FALLS OR SX OF BLEEDING. CONTINUE PRESENT DOSE AND FOLLOW-UP IN 2 WEEKS.'GOOD UNDERSTANDING OF DOSING INSTR. Coding Level of Care Code Est Patient Level 1 Diagnoses Current use of anticoagulant therapy Z79.01 Results AMB INR Fingerstick AMB INR Fingerstick 3.0 Last Edit by Beatriz Arita RN on 07/12/24 10:28 Assessment & Plan Assessment & Plan (1) Current use of anticoagulant therapy: Code(s): Z79.01 - retirement (current) use of anticoagulants Category: Medical
[2024-07-13 02:16] LABS: Prothrombin Time Whole Bld POC 35.7 sec (11.1-13.5)
== END 2024-07-12 10:38 | disposition home or self-care (01) ==
LOC: HO.ACS 10:05
PROVIDERS: PCP Internal Medicine; Visit Provider Internal Medicine
DX: Z79.01 Long term (current) use of anticoagulants (principal)

== ENCOUNTER → 2024-07-12 10:05 | Outpatient (BNVA) | payer MEDICARE, SELFPAY | PROVIDERS: PCP Internal Medicine; Visit Provider Internal Medicine | DX: Z95.2 Presence of prosthetic heart valve (principal); Z79.01 Long term (current) use of anticoagulants; Z51.81 Encounter for therapeutic drug level monitoring | CPT/HCPCS: 85610; 99211 ==

== ENCOUNTER 2024-07-26 09:59 | Outpatient (AMB) | payer MEDICARE, SELFPAY ==
[2024-07-26 10:17] LABS: ~PT, ~INR - Anti Coag Clinic 1.9 (0.9-1.1)
--- NOTE | 2024-07-26 10:30 | MHC.OFFVISCO ---
Intake Intake Visit Reasons: Anticoagulation Allergies No Known Allergies Allergy (Verified 07/26/24 10:12) Medication List - Last Reconciled 07/26/24 by Joelle Connor, DARIO atorvastatin 20 mg PO DAILY coenzyme Q10 100 mg PO DAILY metoprolol succinate ER 25 mg PO DAILY mv,Ca,avw-kkwr-SA-lycopene 8 mg iron- 200 mcg-600 mcg (Centrum Men) 1 tab PO DAILY pantoprazole 20 mg PO DAILY warfarin See Protocol 10mgmwf/ 5mg x4days; Nursing Note INR 1.9?out of therapeutic range of 2.5-3.5 Pt states he had been running high previous visits and is on a schedule of increased greens. Medications and supplements reviewed Patient status: feels well Medications or supplements: no changes Diet: usual diet for pt. He takes ensure 3-4 times a week Denies any signs and symptoms of bleeding or clotting or unusual bruising Bleeding, bruising, clotting discussed Nutritional guidance given: to avoid greens today and tomorrow and to have a serving foods that raise the INR today and tomorrow. He will balance the 2 food groups after that. Dose: increase today's dose to 10mg (5mg) then resume usual dose of 5mg X 5 days and 10mg X 2 days F/U INR Date : 1 week?? Patient verbalizing understanding of instructions given. T/C to Dr Tracy's office. Spoke to Emilie and critical value reported with dosing plan and next re-test date. Coding Level of Care Code Est Patient Level 1 Diagnoses Current use of anticoagulant therapy Z79.01 Assessment & Plan Assessment & Plan (1) Current use of anticoagulant therapy: Code(s): Z79.01 - residential (current) use of anticoagulants Category: Medical
== END 2024-07-26 10:44 | disposition home or self-care (01) ==
LOC: HO.ACS 09:59
PROVIDERS: PCP Internal Medicine; Visit Provider Internal Medicine
DX: Z79.01 Long term (current) use of anticoagulants (principal)

== ENCOUNTER → 2024-07-26 09:59 | Outpatient (BNVA) | payer MEDICARE, SELFPAY | PROVIDERS: PCP Internal Medicine; Visit Provider Internal Medicine | DX: Z95.2 Presence of prosthetic heart valve (principal); Z79.01 Long term (current) use of anticoagulants; Z51.81 Encounter for therapeutic drug level monitoring | CPT/HCPCS: 85610; 99211 ==

== ENCOUNTER 2024-08-03 09:55 | Outpatient (AMB) | payer MEDICARE, SELFPAY ==
[2024-08-03 10:18] LABS: ~PT, ~INR - Anti Coag Clinic 3.1 (0.9-1.1)
--- NOTE | 2024-08-03 10:23 | MHC.OFFVISCO ---
Intake Intake Visit Reasons: Anticoagulation Allergies No Known Allergies Allergy (Verified 07/26/24 10:12) Nursing Note INR: 3.1 in therapeutic range Medications and supplements reviewed No changes in health, diet, medications, or supplements, Denies any signs and symptoms of bleeding or bruising or clotting. 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
== END 2024-08-03 11:24 | disposition home or self-care (01) ==
LOC: HO.ACS 09:55
PROVIDERS: PCP Internal Medicine; Visit Provider Internal Medicine
DX: Z79.01 Long term (current) use of anticoagulants (principal)

== ENCOUNTER → 2024-08-03 09:55 | Outpatient (BNVA) | payer MEDICARE, SELFPAY | PROVIDERS: PCP Internal Medicine; Visit Provider Internal Medicine | DX: Z95.2 Presence of prosthetic heart valve (principal); Z79.01 Long term (current) use of anticoagulants; Z51.81 Encounter for therapeutic drug level monitoring | CPT/HCPCS: 85610; 99211 ==

== ENCOUNTER 2024-08-16 10:06 | Outpatient (AMB) | payer MEDICARE, SELFPAY ==
[2024-08-16 10:12] LABS: Prothrombin Time Whole Bld POC 31.9 sec (11.1-13.5); ~PT, ~INR - Anti Coag Clinic 2.7 (0.9-1.1)
--- NOTE | 2024-08-16 10:20 | MHC.OFFVISCO ---
Intake Intake Visit Reasons: Anticoagulation Allergies No Known Allergies Allergy (Verified 08/16/24 10:08) Medication List - Last Reconciled 08/16/24 by Beatriz Arita RN atorvastatin 20 mg PO DAILY coenzyme Q10 100 mg PO DAILY metoprolol succinate ER 25 mg PO DAILY mv,Ca,vet-scih-EJ-lycopene 8 mg iron- 200 mcg-600 mcg (Centrum Men) 1 tab PO DAILY pantoprazole 20 mg PO DAILY warfarin See Protocol 10mgmwf/ 5mg x4days; Nursing Note NO CP,SOB,DIET/MED CHANGES,FALLS OR SX OF BLEEDING. CONTINUE PRESENT DOSE AND FOLLOW-UP IN 2 WEEKS. GOOD UNDERSTANDING OF DOSING INSTR. Coding Level of Care Code Est Patient Level 1 Diagnoses Current use of anticoagulant therapy Z79.01 Assessment & Plan Assessment & Plan (1) Current use of anticoagulant therapy: Code(s): Z79.01 - assisted (current) use of anticoagulants Category: Medical
== END 2024-08-16 10:25 | disposition home or self-care (01) ==
LOC: HO.ACS 10:06
PROVIDERS: PCP Internal Medicine; Visit Provider Internal Medicine
DX: Z79.01 Long term (current) use of anticoagulants (principal)

== ENCOUNTER → 2024-08-16 10:06 | Outpatient (BNVA) | payer MEDICARE, SELFPAY | PROVIDERS: PCP Internal Medicine; Visit Provider Internal Medicine | DX: Z95.2 Presence of prosthetic heart valve (principal); Z79.01 Long term (current) use of anticoagulants; Z51.81 Encounter for therapeutic drug level monitoring | CPT/HCPCS: 85610; 99211 ==

== ENCOUNTER 2024-08-30 09:57 | Outpatient (AMB) | payer MEDICARE, SELFPAY ==
[2024-08-30 10:09] LABS: Prothrombin Time Whole Bld POC 31.3 sec (11.1-13.5); ~PT, ~INR - Anti Coag Clinic 2.6 (0.9-1.1)
--- NOTE | 2024-08-30 10:11 | MHC.OFFVISCO ---
Intake Intake Visit Reasons: Anticoagulation Allergies No Known Allergies Allergy (Verified 08/30/24 10:00) Nursing Note INR: 2.6 in therapeutic range 2.5-3.5 Medications and supplements reviewed No changes in health, diet, medications, or supplements, Denies any signs and symptoms of bleeding or bruising or clotting. Bleeding, bruising, clotting discussed Nutritional guidance given to avoid greens the next 2 days and pt will have a serving of foods that raises the INR. Food list reviewed Dose: 5mg X 5 days and 10mg X 2 days F/U INR: 2 weeks Patient verbalizes understanding of instructions given Coding Level of Care Code Est Patient Level 1 Diagnoses Current use of anticoagulant therapy Z79.01 Results AMB INR Fingerstick AMB INR Fingerstick 2.6 Last Edit by Joelle Connor RN on 08/30/24 10:08 interface delay Assessment & Plan Assessment & Plan (1) Current use of anticoagulant therapy: Code(s): Z79.01 - longterm (current) use of anticoagulants Category: Medical
== END 2024-08-30 10:13 | disposition home or self-care (01) ==
LOC: HO.ACS 09:57
PROVIDERS: PCP Internal Medicine; Visit Provider Internal Medicine
DX: Z79.01 Long term (current) use of anticoagulants (principal)

== ENCOUNTER → 2024-08-30 09:57 | Outpatient (BNVA) | payer MEDICARE, SELFPAY | PROVIDERS: PCP Internal Medicine; Visit Provider Internal Medicine | DX: Z95.2 Presence of prosthetic heart valve (principal); Z79.01 Long term (current) use of anticoagulants; Z51.81 Encounter for therapeutic drug level monitoring | CPT/HCPCS: 85610; 99211 ==

== ENCOUNTER 2024-09-13 09:56 | Outpatient (AMB) | payer MEDICARE, SELFPAY ==
[2024-09-13 10:07] LABS: Prothrombin Time Whole Bld POC 46.9 sec (11.1-13.5); ~PT, ~INR - Anti Coag Clinic 3.9 (0.9-1.1)
--- NOTE | 2024-09-13 10:13 | MHC.OFFVISCO ---
Intake Intake Visit Reasons: Anticoagulation Allergies No Known Allergies Allergy (Verified 09/13/24 09:57) Medication List - Last Reconciled 09/13/24 by Joelle Connor, DARIO atorvastatin 20 mg PO DAILY coenzyme Q10 100 mg PO DAILY metoprolol succinate ER 25 mg PO DAILY mv,Ca,hpk-jjpb-AT-lycopene 8 mg iron- 200 mcg-600 mcg (Centrum Men) 1 tab PO DAILY pantoprazole 20 mg PO DAILY warfarin See Protocol 10mgmwf/ 5mg x4days; Nursing Note INR 3.9?out of therapeutic range of 2.5-3.5 Medications and supplements reviewed Patient status: feels well Medications or supplements: no change Diet: pt has been eating more reds than greens because his INR had been low to borderline Denies any signs and symptoms of bleeding or clotting or unusual bruising Bleeding, bruising, clotting discussed Nutritional guidance given: to stop the reds and have a serving of greens today and tomorrow and then balance reds and greens Dose: keep same dose of 5mg X 5 days and 10mg X 2 days F/U INR Date : 10/01/24?? Patient verbalizing understanding of instructions given. 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
== END 2024-09-13 10:18 | disposition home or self-care (01) ==
LOC: HO.ACS 09:56
PROVIDERS: PCP Internal Medicine; Visit Provider Internal Medicine
DX: Z79.01 Long term (current) use of anticoagulants (principal)

== ENCOUNTER → 2024-09-13 09:56 | Outpatient (BNVA) | payer MEDICARE, SELFPAY | PROVIDERS: PCP Internal Medicine; Visit Provider Internal Medicine | DX: Z95.2 Presence of prosthetic heart valve (principal); Z79.01 Long term (current) use of anticoagulants; Z51.81 Encounter for therapeutic drug level monitoring | CPT/HCPCS: 85610; 99211 ==

== ENCOUNTER 2024-10-01 09:56 | Outpatient (AMB) | payer MEDICARE, SELFPAY ==
[2024-10-01 10:09] LABS: Prothrombin Time Whole Bld POC 34.4 sec (11.1-13.5); ~PT, ~INR - Anti Coag Clinic 2.9 (0.9-1.1)
--- NOTE | 2024-10-01 10:13 | MHC.OFFVISCO ---
Intake Intake Visit Reasons: Anticoagulation Allergies No Known Allergies Allergy (Verified 10/01/24 10:04) Medication List - Last Reconciled 10/01/24 by Joelle Connor, DARIO atorvastatin 20 mg PO DAILY coenzyme Q10 100 mg PO DAILY metoprolol succinate ER 25 mg PO DAILY mv,Ca,xzq-jpex-TX-lycopene 8 mg iron- 200 mcg-600 mcg (Centrum Men) 1 tab PO DAILY pantoprazole 20 mg PO DAILY warfarin See Protocol 10mgmwf/ 5mg x4days; Nursing Note INR: 2.9 in therapeutic range of 2.5-3.5 Medications and supplements reviewed No changes in health, diet, medications, or supplements, Denies any signs and symptoms of bleeding or bruising or clotting. 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
== END 2024-10-01 10:23 | disposition home or self-care (01) ==
LOC: HO.ACS 09:56
PROVIDERS: PCP Internal Medicine; Visit Provider Internal Medicine
DX: Z79.01 Long term (current) use of anticoagulants (principal)

== ENCOUNTER → 2024-10-01 09:56 | Outpatient (BNVA) | payer MEDICARE, SELFPAY | PROVIDERS: PCP Internal Medicine; Visit Provider Internal Medicine | DX: Z95.2 Presence of prosthetic heart valve (principal); Z79.01 Long term (current) use of anticoagulants; Z51.81 Encounter for therapeutic drug level monitoring | CPT/HCPCS: 85610; 99211 ==

== ENCOUNTER 2024-10-08 12:55 | Outpatient (REF) | payer MEDICARE, SELFPAY ==
[2024-10-08 13:15] LABS: MANUAL DIFF FLAG NO
[2024-10-08 13:26] LABS: Basophils Percent Auto 0.7 % (0-2); Eosinophils Absolute Auto 0.4 X10*3/uL (0.0-0.4); Eosinophils Percent Auto 8.4 % (0-4); Hematocrit 36.7 % (42.0-52.0); Hemoglobin 12.2 g/dl (14.0-18.0); Imm Gran Abs Auto 0.01 X10*3/uL (0.00-0.03); Imm Gran Pct Auto 0.2 % (0.0-0.4); Lymphocytes Absolute Auto 1.1 X10*3/uL (1.2-4.9); Lymphocytes Percent Auto 24.4 % (20-40); Mean Corpuscular HGB Conc 33.2 g/dl (31.0-36.0); Mean Corpuscular Hemoglobin 29.2 pg (27.0-33.0); Mean Corpuscular Volume 87.8 fL (80.0-98.0); Mean Platelet Volume 10.7 fL (9.4-12.4); Monocytes Absolute Auto 0.6 X10*3/uL (0.1-1.2); Neutrophils Absolute Auto 2.4 x10*3/uL (2.0-8.3); Neutrophils Percent Auto 52.3 % (45-73); Platelet Count 144 X10*3/uL (160-400); Red Blood Count 4.18 X10*6/uL (4.60-5.80); Red Cell Distribution Width 13.4 % (11.0-16.0); White Blood Count 4.5 X10*3/uL (4.8-10.8)
[2024-10-08 13:51] LABS: Anion Gap 11 (12-20); Blood Urea Nitrogen 15 mg/dL (9-16); Calcium 9.5 mg/dL (8.4-10.2); Carbon Dioxide 33 mmol/L (22-29); Chloride 101 mmol/L (96-108); Estimated Glomerular Filt Rate > 60; Glucose Random 78 mg/dL (60-115); Iron 68 mcg/dL (45-160); Percent Iron Saturation 25 % (15-50); Sodium 141 mmol/L (135-145); Total Iron Binding Capacity 271 mcg/dL (228-428); Unsaturated Iron Binding 203 ug/dL
== END 2024-10-08 12:56 | disposition home or self-care (01) ==
LOC: HO.LAB 12:55
PROVIDERS: PCP Internal Medicine; Visit Provider Internal Medicine
DX: D64.9 Anemia, unspecified (principal); I10 Essential (primary) hypertension; I48.91 Unspecified atrial fibrillation
CPT/HCPCS: 36415; 80048; 83540; 85025

== ENCOUNTER 2024-11-01 09:58 | Outpatient (AMB) | payer MEDICARE, SELFPAY ==
[2024-11-01 10:08] LABS: Prothrombin Time Whole Bld POC 30.4 sec (11.1-13.5); ~PT, ~INR - Anti Coag Clinic 2.5 (0.9-1.1)
--- NOTE | 2024-11-01 10:13 | MHC.OFFVISCO ---
Intake Intake Visit Reasons: Anticoagulation Allergies No Known Allergies Allergy (Verified 11/01/24 10:03) Medication List - Last Reconciled 11/01/24 by Joelle Connor RN atorvastatin 20 mg PO DAILY coenzyme Q10 100 mg PO DAILY metoprolol succinate ER 25 mg PO DAILY mv,Ca,smh-pitg-QU-lycopene 8 mg iron- 200 mcg-600 mcg (Centrum Men) 1 tab PO DAILY pantoprazole 20 mg PO DAILY warfarin See Protocol 10mgmwf/ 5mg x4days; Nursing Note INR: 2.5 in therapeutic range of 2.5-3.5 Medications and supplements reviewed No changes in health, diet, medications, or supplements, Denies any signs and symptoms of bleeding or bruising or clotting. Bleeding, bruising, clotting discussed Nutritional guidance given Dose: 5mg X 5 days and 10mg X 2 days F/U INR: 2 weeks Patient verbalizes understanding of instructions given Coding Level of Care Code Est Patient Level 1 Diagnoses Current use of anticoagulant therapy Z79.01 Results AMB INR Fingerstick AMB INR Fingerstick 2.5 Last Edit by Joelle Connor RN on 11/01/24 10:08 interface delay Assessment & Plan Assessment & Plan (1) Current use of anticoagulant therapy: Code(s): Z79.01 - snf (current) use of anticoagulants Category: Medical
== END 2024-11-01 10:15 | disposition home or self-care (01) ==
LOC: HO.ACS 09:58
PROVIDERS: PCP Internal Medicine; Visit Provider Internal Medicine
DX: Z79.01 Long term (current) use of anticoagulants (principal)

== ENCOUNTER → 2024-11-01 09:58 | Outpatient (BNVA) | payer MEDICARE, SELFPAY | PROVIDERS: PCP Internal Medicine; Visit Provider Internal Medicine | DX: Z95.2 Presence of prosthetic heart valve (principal); Z79.01 Long term (current) use of anticoagulants; Z51.81 Encounter for therapeutic drug level monitoring | CPT/HCPCS: 85610; 99211 ==

== ENCOUNTER 2024-11-15 09:59 | Outpatient (AMB) | payer MEDICARE, SELFPAY ==
--- NOTE | 2024-11-15 10:10 | MHC.OFFVISCO ---
Intake Intake Visit Reasons: Anticoagulation Allergies No Known Allergies Allergy (Verified 11/15/24 10:00) Medication List - Last Reconciled 11/15/24 by Joelle Connor RN atorvastatin 20 mg PO DAILY coenzyme Q10 100 mg PO DAILY metoprolol succinate ER 25 mg PO DAILY mv,Ca,poz-jxqf-IY-lycopene 8 mg iron- 200 mcg-600 mcg (Centrum Men) 1 tab PO DAILY pantoprazole 20 mg PO DAILY warfarin See Protocol 10mgmwf/ 5mg x4days; Nursing Note INR: 3.4 in therapeutic range of 2.5-3.4 Medications and supplements reviewed No changes in health, diet, medications, or supplements, Denies any signs and symptoms of bleeding or bruising or clotting. 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
[2024-11-15 10:13] LABS: Prothrombin Time Whole Bld POC 41.3 sec (11.1-13.5); ~PT, ~INR - Anti Coag Clinic 3.4 (0.9-1.1)
== END 2024-11-15 10:17 | disposition home or self-care (01) ==
LOC: HO.ACS 09:59
PROVIDERS: PCP Internal Medicine; Visit Provider Internal Medicine
DX: Z79.01 Long term (current) use of anticoagulants (principal)

== ENCOUNTER → 2024-11-15 09:59 | Outpatient (BNVA) | payer MEDICARE, SELFPAY | PROVIDERS: PCP Internal Medicine; Visit Provider Internal Medicine | DX: Z95.2 Presence of prosthetic heart valve (principal); Z79.01 Long term (current) use of anticoagulants; Z51.81 Encounter for therapeutic drug level monitoring | CPT/HCPCS: 85610; 99211 ==

== ENCOUNTER 2024-12-13 09:56 | Outpatient (AMB) | payer MEDICARE, SELFPAY ==
[2024-12-13 10:03] LABS: Prothrombin Time Whole Bld POC 32.9 sec (11.1-13.5); ~PT, ~INR - Anti Coag Clinic 2.7 (0.9-1.1)
--- NOTE | 2024-12-13 10:08 | MHC.OFFVISCO ---
Intake Intake Visit Reasons: Anticoagulation Allergies No Known Allergies Allergy (Verified 12/13/24 09:57) Medication List - Last Reconciled 12/13/24 by Joelle Connor, DARIO atorvastatin 20 mg PO DAILY coenzyme Q10 100 mg PO DAILY metoprolol succinate ER 25 mg PO DAILY mv,Ca,owx-irpu-DB-lycopene 8 mg iron- 200 mcg-600 mcg (Centrum Men) 1 tab PO DAILY pantoprazole 20 mg PO DAILY warfarin See Protocol 10mgmwf/ 5mg x4days; Nursing Note INR: 2.7 in therapeutic range of 2.5-3.5 Medications and supplements reviewed No changes in health, diet, medications, or supplements, Denies any signs and symptoms of bleeding or bruising or clotting. Bleeding, bruising, clotting discussed Nutritional guidance given to avoid greens the next 2 days and to focus on foods that raise the INR. Food list reviewed. 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
== END 2024-12-13 10:12 | disposition home or self-care (01) ==
LOC: HO.ACS 09:56
PROVIDERS: PCP Internal Medicine; Visit Provider Internal Medicine
DX: Z79.01 Long term (current) use of anticoagulants (principal)

== ENCOUNTER → 2024-12-13 09:56 | Outpatient (BNVA) | payer MEDICARE, SELFPAY | PROVIDERS: PCP Internal Medicine; Visit Provider Internal Medicine | DX: Z95.2 Presence of prosthetic heart valve (principal); Z79.01 Long term (current) use of anticoagulants; Z51.81 Encounter for therapeutic drug level monitoring | CPT/HCPCS: 85610; 99211 ==

== ENCOUNTER 2025-01-03 09:55 | Outpatient (AMB) | payer MEDICARE, SELFPAY ==
--- NOTE | 2025-01-03 10:18 | MHC.OFFVISCO ---
Intake Intake Visit Reasons: Anticoagulation Allergies No Known Allergies Allergy (Verified 01/03/25 10:01) Medication List - Last Reconciled 01/03/25 by Valeria Jaime RN atorvastatin 20 mg PO DAILY coenzyme Q10 100 mg PO DAILY metoprolol succinate ER 25 mg PO DAILY mv,Ca,nsx-ucpj-ZH-lycopene 8 mg iron- 200 mcg-600 mcg (Centrum Men) 1 tab PO DAILY pantoprazole 20 mg PO DAILY warfarin See Protocol 10mgmwf/ 5mg x4days; Nursing Note ambulates to [facility] appt on own, well INR: 2.8 in therapeutic range Medications and supplements reviewed No changes in health, diet, medications, or supplements, Denies any signs and symptoms of bleeding or bruising or clotting. Bleeding, bruising, clotting discussed Nutritional guidance given Dose: 10mg x 2 days/ 5mg x 5 days F/U INR: 3 weeks Patient verbalizes understanding of instructions given with read back Questionnaires HAS-BLED Does the patient had uncontrolled Hypertension?: No Does the patient have renal disease?: No Does the patient have liver disease?: Yes Does the patient have a history of stroke?: No Has the patient had major bleeding or predisposition to bleeding?: Yes (hx of GI bleed 2016) Does the patient have labile INRs?: No Is the patient over 65 years of age?: Yes Is the patient on medications that gives them a predisposition to bleeding?: Yes Does the patient use alcohol?: No HAS-BLED Score: 4 CHADSVASC Age: 66-74 Gender: Male Does the patient have a history of CHF?: No Does the patient have a history of Hypertension?: No Does the patient have a history of Stroke/TIA/Thromboembolism?: No Does the patient have a history of Vascular Disease (prior [place], PAD or aortic plaque)?: Yes Does the patient have a history of Diabetes?: No CHADS VACS Score: 2 Louis Prediction Score Rsk VTE Active Cancer: No Previous VTE, excluding superficial vein thrombosis: No Reduced mobility: No Already known Thrombophilic Condition: No With-in last month Trauma and/or Surgery: No Elderly 70 year or older: Yes Heart and/or Respiratory Failure: No Acute Myocardial infarction and/or Ischemic Stroke: No Acute Infection and/or Rheumatologic Disorder: No Obesity (BMI 30 or greater): No Ongoing Hormonal Treatment: No Score: 2 (mechanical heart valve ) Louis Score less than 4; Low Risk of VTE Louis Score 4 or greater; High Risk of VTE Coding Level of Care Code Est Patient Level 1 Diagnoses Current use of anticoagulant therapy Z79.01 Results AMB INR Fingerstick AMB INR Fingerstick 2.8 Last Edit by Valeria Jaime RN on 01/03/25 10:13 manual entry Assessment & Plan Assessment & Plan (1) Current use of anticoagulant therapy: Code(s): 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
[2025-01-03 11:22] LABS: Prothrombin Time Whole Bld POC 34.1 sec (11.1-13.5); ~PT, ~INR - Anti Coag Clinic 2.8 (0.9-1.1)
== END 2025-01-03 10:27 | disposition home or self-care (01) ==
LOC: HO.ACS 09:55
PROVIDERS: PCP Internal Medicine; Visit Provider Internal Medicine
DX: Z79.01 Long term (current) use of anticoagulants (principal)

== ENCOUNTER → 2025-01-03 09:55 | Outpatient (BNVA) | payer MEDICARE, SELFPAY | PROVIDERS: PCP Internal Medicine; Visit Provider Internal Medicine | DX: Z95.2 Presence of prosthetic heart valve (principal); Z79.01 Long term (current) use of anticoagulants; Z51.81 Encounter for therapeutic drug level monitoring | CPT/HCPCS: 85610; 99211 ==

== ENCOUNTER 2025-01-15 10:03 | Outpatient (REF) | payer MEDICARE, SELFPAY ==
[2025-01-15 10:26] LABS: MANUAL DIFF FLAG NO
[2025-01-15 10:39] LABS: Basophils Percent Auto 0.7 % (0-2); Eosinophils Absolute Auto 0.4 X10*3/uL (0.0-0.4); Eosinophils Percent Auto 9.2 % (0-4); Hematocrit 36.7 % (42.0-52.0); Hemoglobin 12.3 g/dl (14.0-18.0); Imm Gran Abs Auto 0.01 X10*3/uL (0.00-0.03); Imm Gran Pct Auto 0.2 % (0.0-0.4); Lymphocytes Absolute Auto 1.2 X10*3/uL (1.2-4.9); Lymphocytes Percent Auto 28.5 % (20-40); Mean Corpuscular HGB Conc 33.5 g/dl (31.0-36.0); Mean Corpuscular Hemoglobin 29.1 pg (27.0-33.0); Mean Platelet Volume 10.9 fL (9.4-12.4); Monocytes Absolute Auto 0.6 X10*3/uL (0.1-1.2); Monocytes Percent Auto 13.6 % (2-11); Neutrophils Percent Auto 47.8 % (45-73); Platelet Count 153 X10*3/uL (160-400); Red Blood Count 4.22 X10*6/uL (4.60-5.80); Red Cell Distribution Width 13.3 % (11.0-16.0); White Blood Count 4.3 X10*3/uL (4.8-10.8)
[2025-01-15 11:43] LABS: Prostate Specific Antigen 0.99 ng/mL (<0.05-4.0)
[2025-01-15 12:07] LABS: Alanine Aminotransferase 31 U/L (0-40); Albumin Level 4.1 g/dL (3.5-5.0); Alkaline Phosphatase 55 U/L (39-117); Anion Gap 8 (12-20); Aspartate Amino Transferase 34 U/L (5-37); Bilirubin Total 0.8 mg/dL (0.0-1.0); Blood Urea Nitrogen 14 mg/dL (9-16); Calcium 9.2 mg/dL (8.4-10.2); Carbon Dioxide 27 mmol/L (22-29); Chloride 107 mmol/L (96-108); Cholesterol 144 mg/dL (<200); Estimated Glomerular Filt Rate > 60; Glucose Fasting 92 mg/dL (60-99); HDL Cholesterol 51 mg/dL (>40); LDL Cholesterol Calculated 81 mg/dL (<100); Potassium 3.9 mmol/L (3.3-5.1); Sodium 138 mmol/L (135-145); Triglycerides 60 mg/dL (<150)
== END 2025-01-15 10:04 | disposition home or self-care (01) ==
LOC: HO.LAB 10:03
PROVIDERS: PCP Internal Medicine; Visit Provider Internal Medicine
DX: I10 Essential (primary) hypertension (principal); Z12.5 Encounter for screening for malignant neoplasm of prostate
CPT/HCPCS: 36415; 80053; 80061; 84153; 85025

== ENCOUNTER 2025-01-18 11:11 | Outpatient (AMB) | payer MEDICARE, SELFPAY ==
[2025-01-18 11:17] VITALS: BP 144/80; PULSE 60; RESP 14; TEMP 36.4; O2SAT 99; BMI 16.8
--- NOTE | 2025-01-18 11:17 | A.OFFPC_ITS ---
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 Accompanied by: Self / Same As Patient Allergies No Known Allergies Allergy (Verified 01/18/25 11:19) Medication List - Last Reconciled 01/18/25 by Shakira Pichardo MD aspirin (Adult Low Dose Aspirin) 81 mg PO DAILY atorvastatin 20 mg PO DAILY coenzyme Q10 100 mg PO DAILY metoprolol succinate ER 25 mg PO DAILY mv,Ca,law-cypo-GW-lycopene 8 mg iron- 200 mcg-600 mcg (Centrum Men) 1 tab PO DAILY pantoprazole 20 mg PO DAILY warfarin See Protocol 10mgmwf/ 5mg x4days; Tobacco use date assessed: 01/18/25 Fall risk assessment: No Falls in past year Last assessed Fall Risk: 01/18/25 Dental Screening Dental Screen Date: 01/18/25 Did you have a dental visit in the last 12 months?: Yes Did you have a dental problem in the last 6 months where you did not have access to dental care?: No Was dental information given to patient?: No (pt has dentures) HPI HPI Comments History of Present Illness Details 74 y/o with dm, htn, hld, GERD for s/ p AVR, afib, BPH, anemia presenting for follow up. Saw pcp 09/2024 CV: on coumadin, metoprolol. Follows with [facility]. Denies chest pain, dizziness. GERD: on pantoprazole Cologuard: 2023 ROS CONSTITUTIONAL: Denies weight loss, fever and chills. HEENT: Denies changes in vision and hearing. RESPIRATORY: Denies SOB and cough. CV: Denies palpitations and CP GI: Denies abdominal pain, nausea, vomiting and diarrhea. : Denies dysuria and urinary frequency. MSK: Denies new myalgia and joint pain. SKIN: Denies rash and pruritus. NEUROLOGICAL: Denies headache PSYCHIATRIC: Denies recent changes in mood. PHYSICAL EXAM: GENERAL: Alert and oriented x 3. NAD EYES: EOMI. Anicteric. HENT: Moist mucous membranes. No scleral icterus. No cervical lymphadenopathy. LUNGS: Clear to auscultation bilaterally. CARDIOVASCULAR: Regular rate and rhythm. No murmur. No JVD. ABDOMEN: Soft, non-tender +bs EXTREMITIES: No edema. Non-tender. SKIN: No rashes or lesions. Warm. NEUROLOGIC: No focal neurological deficits. CN II-XII grossly intact PSYCHIATRIC: Cooperative. Appropriate mood and affect FOR[facility]LY [facility] Surgical History H/O mechanical aortic valve replacement Family History (Updated 01/18/25 @ 11:23 by INDER Valverde) Father Cancer of prostate Mother No problems noted. Social History (Updated 01/18/25 @ 11:24 by INDER Valverde) Housing: Apartment Alcohol intake: current Alcohol intake frequency: does not drink Patient Tobacco Use Status: Former Tobacco user service: No Current occupational status: retired Cognitive needs: Yes (left arm prosthetic) Hearing needs: No Vision needs: Yes (rx glasses) Questionnaire PHQ-9 Over the last 2 weeks, how often have you been bothered by any of the following problems? 1. Little interest or pleasure in doing things: not at all 2. Feeling down, depressed, or hopeless: not at all 3. Trouble falling or staying asleep, or sleeping too much: not at all 4. Feeling tired or having little energy: not at all 5. Poor appetite or overeating: not at all 6. Feeling bad about yourself - or that you are a failure or have let yourself or your family down: not at all 7. Trouble concentrating on things, such as reading the newspaper or watching television: not at all 8. Moving or speaking so slowly that other people could have noticed. Or the opposite - being so fidgety or restless that you have been moving around a lot more than usual: not at all 9. Thoughts that you would be better off or of hurting yourself in some way: not at all Total score: 0 Source: Developed by Drs. Darnell Noel, Ragini Antony, Candido Christine and colleagues, with an educational mynor from [employer]. Thrive Questionnaire Date Thrive assessed: 01/18/25 I am a: Patient What is your living situation today?: I have a steady place to live Within the past 12 months, did the food you bought not last and you didn't have the money to get more?: Never true Within the past 12 months, did you worry whether your food would run out before you got money to buy more?: Never true Do you have trouble paying for medicines?: No Do you have trouble getting transportation to medical appointments?: No Do you have trouble paying your heating and electricity bill?: No Do you have trouble taking care of your child, family member or friend?: No Do you have trouble with day-to-day activities such as bathing, preparing meals, shopping, managing finances, etc.?: No Are you currently unemployed and looking for a job?: No Are you interested in more education?: No Please select the resources that you would like help with: None THRIVE Score: 0 AUDIT C Alcohol Use Questionnaire (AUDIT-C) 1. How often do you have a drink containing alcohol?: Never 3. How often do you have six or more drinks on one occasion?: Never Total Score: 0 TOYIN-7 AMB Questionnaire TOYIN-7 Date TOYIN - 7 assessed: 01/18/25 Feeling nervous, anxious, or on edge: 0 = Not at all Not being able to stop or control worryin = Not at all Worrying too much about different things: 0 = Not at all Trouble relaxin = Not at all Being so restless that it is hard to sit still: 0 = Not at all Becoming easily annoyed or irritable: 0 = Not at all Feeling afraid as if something awful might happen: 0 = Not at all Total TOYIN-7 score (0-4 normal; 5-9 mild; 10-14 moderate; 15-21 severe): 0 Source: Developed by Drs. Darnell Noel, Ragini Antony, Candido Christine and colleagues, with an educational mynor from [employer]. Physical exam (Primary Care) Vital Signs: Last Vital Signs Temp 97.6 F 01/18/25 11:17 Pulse 60 01/18/25 11:17 Resp 14 01/18/25 11:17 BP 144/80 H 01/18/25 11:17 Pulse Ox 99 01/18/25 11:17 Oxygen Delivery Method Room Air 01/18/25 11:17 BMI result Body Mass Index 16.8 Tobacco/Smoking Status: Tobacco use Status Tobacco use date assessed 01/18/25 01/18/25 11:25 Patient Tobacco Use Status Former Tobacco user 01/18/25 11:25 PHQ-9: PHQ-9 Score PHQ-9: Total score 0 01/20/25 13:05 Thrive Assessment: Date of Thrive Assessment Date Thrive assessed 01/18/25 01/18/25 11:25 Coding Level of Care Code New Pt Level 4 (55826) Diagnoses Anemia D64.9 Atrial fibrillation, unspecified type I48.91 Atrial fibrillation type: unspecified Primary hypertension I10 Hypertension type: primary hypertension Assessment & Plan Assessment & Plan (1) Anemia: Code(s): D64.9 - Anemia, unspecified Category: Medical (2) Atrial fibrillation: Code(s): I48.91 - Unspecified atrial fibrillation Category: Medical Qualifiers: Atrial fibrillation type: unspecified Qualified Code(s): I48.91 - Unspecified atrial fibrillation (3) HTN (hypertension): Code(s): I10 - Essential (primary) hypertension Category: Medical Qualifiers: Hypertension type: primary hypertension Qualified Code(s): I10 - Essential (primary) hypertension Plan 74 y/o to establish care past medical, surgical, social and family history reviewed. Anemia-unclear, labs ordered Follow up 3 months Orders: Orders Comprehensive Met. 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
== END 2025-01-18 11:42 | disposition home or self-care (01) ==
LOC: HO.HMCHD 11:12
PROVIDERS: PCP Internal Medicine; Visit Provider Internal Medicine
DX: D64.9 Anemia, unspecified (principal); I48.91 Unspecified atrial fibrillation; I10 Essential (primary) hypertension

== ENCOUNTER → 2025-01-18 11:11 | Outpatient (BNVA) | payer MEDICARE, SELFPAY | PROVIDERS: PCP Internal Medicine; Visit Provider Internal Medicine | DX: D64.9 Anemia, unspecified (principal); I48.91 Unspecified atrial fibrillation; I10 Essential (primary) hypertension; E11.9 Type 2 diabetes mellitus without complications; K21.9 Gastro-esophageal reflux disease without esophagitis; Z95.2 Presence of prosthetic heart valve; Z79.01 Long term (current) use of anticoagulants; Z79.899 Other long term (current) drug therapy | CPT/HCPCS: 96127; 99202 ==

== ENCOUNTER 2025-01-24 10:06 | Outpatient (AMB) | payer MEDICARE, SELFPAY ==
[2025-01-24 10:24] LABS: ~PT, ~INR - Anti Coag Clinic 2.3 (0.9-1.1)
--- NOTE | 2025-01-24 10:25 | MHC.OFFVISCO ---
Intake Intake Visit Reasons: Anticoagulation Allergies No Known Allergies Allergy (Verified 01/24/25 10:10) Medication List - Last Reconciled 01/24/25 by Joelle Connor RN aspirin (Adult Low Dose Aspirin) 81 mg PO DAILY atorvastatin 20 mg PO DAILY coenzyme Q10 100 mg PO DAILY metoprolol succinate ER 25 mg PO DAILY mv,Ca,ruw-newz-FU-lycopene 8 mg iron- 200 mcg-600 mcg (Centrum Men) 1 tab PO DAILY pantoprazole 20 mg PO DAILY warfarin See Protocol 10mgmwf/ 5mg x4days; Nursing Note INR: 2.3?out of therapeutic range 2.5-3.5 Medications and supplements reviewed Patient status: feels well Medications or supplements: no changes Diet: pt states he takes ensure 3-4 times/week instead of daily because the new brand of MVI has 50% Vit K as opposed to 25% in the old brand Denies any signs and symptoms of bleeding or clotting or unusual bruising Bleeding, bruising, clotting discussed Nutritional guidance given: to avoid greens today Dose: increase dose to 7.5mg (5mg) then resume usual dose of 5mg X 5 days 10mg X 2 days F/U INR Date : 3 weeks?? Patient verbalizing understanding of instructions given. 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
== END 2025-01-24 10:30 | disposition home or self-care (01) ==
LOC: HO.ACS 10:06
PROVIDERS: PCP Internal Medicine; Visit Provider Internal Medicine Medical Oncology
DX: Z79.01 Long term (current) use of anticoagulants (principal)

== ENCOUNTER → 2025-01-24 10:06 | Outpatient (BNVA) | payer MEDICARE, SELFPAY | PROVIDERS: PCP Internal Medicine; Visit Provider Internal Medicine Medical Oncology | DX: Z95.2 Presence of prosthetic heart valve (principal); Z51.81 Encounter for therapeutic drug level monitoring; Z79.01 Long term (current) use of anticoagulants | CPT/HCPCS: 85610; 99211 ==

== ENCOUNTER → 2025-02-14 09:55 | Outpatient (BNVA) | payer MEDICARE, SELFPAY | PROVIDERS: PCP Internal Medicine; Visit Provider Internal Medicine Medical Oncology | DX: Z95.2 Presence of prosthetic heart valve (principal); Z79.01 Long term (current) use of anticoagulants; Z51.81 Encounter for therapeutic drug level monitoring | CPT/HCPCS: 85610; 99211 ==

== ENCOUNTER 2025-03-07 10:01 | Outpatient (AMB) | payer MEDICARE, SELFPAY ==
--- NOTE | 2025-03-07 10:13 | MHC.OFFVISCO ---
Intake Intake Visit Reasons: Anticoagulation Allergies No Known Allergies Allergy (Verified 03/07/25 10:08) Medication List - Last Reconciled 03/07/25 by Radhika Fleming RN aspirin (Adult Low Dose Aspirin) 81 mg PO DAILY atorvastatin 20 mg PO DAILY coenzyme Q10 100 mg PO DAILY metoprolol succinate ER 25 mg PO DAILY mv,Ca,kim-xhmz-OX-lycopene 8 mg iron- 200 mcg-600 mcg (Centrum Men) 1 tab PO DAILY pantoprazole 20 mg PO DAILY warfarin (Jantoven) 5 mg See Protocol PO DAILY Nursing Note INR 1.7-? out of therapeutic range of 2.5-3.5 Medications and supplements reviewed Patient status: pt denies missed dose Medications or supplements: no changes Diet: appetite is 3 meals a day, has reduced ensure to qod, pt states eating more protein Denies any signs and symptoms of bleeding or clotting or unusual bruising Bleeding, bruising, clotting discussed- aware at risk for clotting Nutritional guidance given: no greens for 2-3 days, eat reds to raise inr Dose: increase today to 10 mg today, then cont reg dosing, 10mg x 2, 5mg x 5 F/U INR Date : tue03/11/25? Patient verbalizing understanding of instructions given. district sales coordinator Dr Boland called with low inr/dosing and f/u appt. spoke to Marcy at 1045 Anti-Coag Initial Assessment Social Hx Patient Tobacco Use Status: Former Tobacco user alcohol intake: current Alcohol intake frequency: does not drink Coding Level of Care Code Est Patient Level 1 Diagnoses Current use of anticoagulant therapy Z79.01 Results AMB INR Fingerstick AMB INR Fingerstick 1.7 Last Edit by Radhika Fleming RN on 03/07/25 10:20 interface delay Assessment & Plan Assessment & Plan (1) Current use of anticoagulant therapy: Code(s): Z79.01 - [facility] (current) use of anticoagulants Category: Medical
[2025-03-08 08:05] LABS: Prothrombin Time Whole Bld POC 20.8 sec (11.1-13.5); ~PT, ~INR - Anti Coag Clinic 1.7 (0.9-1.1)
== END 2025-03-07 10:51 | disposition home or self-care (01) ==
LOC: HO.ACS 10:01
PROVIDERS: PCP Internal Medicine; Visit Provider Internal Medicine Medical Oncology
DX: Z79.01 Long term (current) use of anticoagulants (principal)

== ENCOUNTER → 2025-03-07 10:01 | Outpatient (BNVA) | payer MEDICARE, SELFPAY | PROVIDERS: PCP Internal Medicine; Visit Provider Internal Medicine Medical Oncology | DX: Z95.2 Presence of prosthetic heart valve (principal); Z79.01 Long term (current) use of anticoagulants; Z51.81 Encounter for therapeutic drug level monitoring | CPT/HCPCS: 85610; 99211 ==

== ENCOUNTER 2025-03-11 09:57 | Outpatient (AMB) | payer MEDICARE, SELFPAY ==
[2025-03-11 10:13] LABS: Prothrombin Time Whole Bld POC 30.3 sec (11.1-13.5); ~PT, ~INR - Anti Coag Clinic 2.5 (0.9-1.1)
--- NOTE | 2025-03-11 10:20 | MHC.OFFVISCO ---
Intake Intake Visit Reasons: Anticoagulation Allergies No Known Allergies Allergy (Verified 03/11/25 10:03) Medication List - Last Reconciled 03/11/25 by Joelle Connor RN aspirin (Adult Low Dose Aspirin) 81 mg PO DAILY atorvastatin 20 mg PO DAILY coenzyme Q10 100 mg PO DAILY metoprolol succinate ER 25 mg PO DAILY mv,Ca,htr-xozu-SW-lycopene 8 mg iron- 200 mcg-600 mcg (Centrum Men) 1 tab PO DAILY pantoprazole 20 mg PO DAILY warfarin (Jantoven) 5 mg See Protocol PO DAILY Nursing Note INR: 2.5 in therapeutic range of 2.5-3.5 Medications and supplements reviewed No changes in health, diet, medications, or supplements, Denies any signs and symptoms of bleeding or bruising or clotting. Bleeding, bruising, clotting discussed Nutritional guidance given to avoid greens X 2-3 days and to focus on foods that raise the INR. Food list discussed. Dose: 5mg X 5 days and 10mg X 2 days F/U INR: 2 weeks Patient verbalizes understanding of instructions given Anti-Coag Initial Assessment Social Hx Patient Tobacco Use Status: Former Tobacco user alcohol intake: current Alcohol intake frequency: does not drink Coding Level of Care Code Est Patient Level 1 Diagnoses Current use of anticoagulant therapy Z79.01 Results AMB INR Fingerstick AMB INR Fingerstick 2.5 Last Edit by Joelle Connor RN on 03/11/25 10:12 interface delay Assessment & Plan Assessment & Plan (1) Current use of anticoagulant therapy: Code(s): Z79.01 - skilled nursing (current) use of anticoagulants Category: Medical
== END 2025-03-11 10:22 | disposition home or self-care (01) ==
LOC: HO.ACS 09:57
PROVIDERS: PCP Internal Medicine; Visit Provider Internal Medicine Medical Oncology
DX: Z79.01 Long term (current) use of anticoagulants (principal)

== ENCOUNTER → 2025-03-11 09:57 | Outpatient (BNVA) | payer MEDICARE, SELFPAY | PROVIDERS: PCP Internal Medicine; Visit Provider Internal Medicine Medical Oncology | DX: Z95.2 Presence of prosthetic heart valve (principal); Z79.01 Long term (current) use of anticoagulants; Z51.81 Encounter for therapeutic drug level monitoring | CPT/HCPCS: 85610; 99211 ==

== ENCOUNTER 2025-03-25 09:55 | Outpatient (AMB) | payer MEDICARE, SELFPAY ==
[2025-03-25 10:18] LABS: Prothrombin Time Whole Bld POC 31.7 sec (11.1-13.5); ~PT, ~INR - Anti Coag Clinic 2.6 (0.9-1.1)
--- NOTE | 2025-03-25 10:23 | MHC.OFFVISCO ---
Intake Intake Visit Reasons: Anticoagulation Allergies No Known Allergies Allergy (Verified 03/25/25 09:59) Medication List - Last Reconciled 03/25/25 by Joelle Connor, RN aspirin (Adult Low Dose Aspirin) 81 mg PO DAILY atorvastatin 20 mg PO DAILY coenzyme Q10 100 mg PO DAILY metoprolol succinate ER 25 mg PO DAILY mv,Ca,sny-awvv-PN-lycopene 8 mg iron- 200 mcg-600 mcg (Centrum Men) 1 tab PO DAILY pantoprazole 20 mg PO DAILY warfarin (Jantoven) 5 mg See Protocol PO DAILY Nursing Note INR: 2.5 in therapeutic range of 2.5-3.5 Medications and supplements reviewed No changes in health, diet, medications, or supplements, Denies any signs and symptoms of bleeding or bruising or clotting. 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
== END 2025-03-25 10:31 | disposition home or self-care (01) ==
LOC: HO.ACS 09:55
PROVIDERS: PCP Internal Medicine; Visit Provider Internal Medicine Medical Oncology
DX: Z79.01 Long term (current) use of anticoagulants (principal)

== ENCOUNTER → 2025-03-25 09:55 | Outpatient (BNVA) | payer MEDICARE, SELFPAY | PROVIDERS: PCP Internal Medicine; Visit Provider Internal Medicine Medical Oncology | DX: Z95.2 Presence of prosthetic heart valve (principal); Z79.01 Long term (current) use of anticoagulants; Z51.81 Encounter for therapeutic drug level monitoring | CPT/HCPCS: 85610; 99211 ==

== ENCOUNTER 2025-04-01 09:56 | Outpatient (AMB) | payer MEDICARE, SELFPAY ==
[2025-04-01 10:13] LABS: Prothrombin Time Whole Bld POC 29.9 sec (11.1-13.5); ~PT, ~INR - Anti Coag Clinic 2.5 (0.9-1.1)
--- NOTE | 2025-04-01 10:16 | MHC.OFFVISCO ---
Intake Intake Visit Reasons: Anticoagulation Allergies No Known Allergies Allergy (Verified 04/01/25 09:58) Medication List - Last Reconciled 04/01/25 by Joelle Connor, DARIO aspirin (Adult Low Dose Aspirin) 81 mg PO DAILY atorvastatin 20 mg PO DAILY coenzyme Q10 100 mg PO DAILY metoprolol succinate ER 25 mg PO DAILY mv,Ca,qtw-tesn-GK-lycopene 8 mg iron- 200 mcg-600 mcg (Centrum Men) 1 tab PO DAILY pantoprazole 20 mg PO DAILY warfarin (Jantoven) 5 mg See Protocol PO DAILY Nursing Note INR: 2.5 in therapeutic range of 2.5-3.5 Medications and supplements reviewed No changes in health, diet, medications, or supplements, Denies any signs and symptoms of bleeding or bruising or clotting. Bleeding, bruising, clotting discussed Nutritional guidance given Dose: increase today's dose to 10mg (5mg) then resume usual dose of 5mg X 5 days and 10mg X 2 days (Tue & Wed) F/U INR: 1 week Patient verbalizes understanding of instructions given Anti-Coag Initial Assessment Social Hx Patient Tobacco Use Status: Former Tobacco user alcohol intake: current Alcohol intake frequency: does not drink Coding Level of Care Code Est Patient Level 1 Diagnoses Current use of anticoagulant therapy Z79.01 Assessment & Plan Assessment & Plan (1) Current use of anticoagulant therapy: Code(s): Z79.01 - [facility] (current) use of anticoagulants Category: Medical
== END 2025-04-01 10:22 | disposition home or self-care (01) ==
LOC: HO.ACS 09:56
PROVIDERS: PCP Internal Medicine; Visit Provider Internal Medicine Medical Oncology
DX: Z79.01 Long term (current) use of anticoagulants (principal)

== ENCOUNTER → 2025-04-01 09:56 | Outpatient (BNVA) | payer MEDICARE, SELFPAY | PROVIDERS: PCP Internal Medicine; Visit Provider Internal Medicine Medical Oncology | DX: Z95.2 Presence of prosthetic heart valve (principal); Z79.01 Long term (current) use of anticoagulants; Z51.81 Encounter for therapeutic drug level monitoring | CPT/HCPCS: 85610; 99211 ==

== ENCOUNTER 2025-04-11 10:03 | Outpatient (AMB) | payer MEDICARE, SELFPAY ==
[2025-04-11 10:42] LABS: Prothrombin Time Whole Bld POC 27.5 sec (11.1-13.5); ~PT, ~INR - Anti Coag Clinic 2.3 (0.9-1.1)
--- NOTE | 2025-04-11 10:56 | MHC.OFFVISCO ---
Intake Intake Visit Reasons: Anticoagulation Allergies No Known Allergies Allergy (Verified 04/11/25 10:36) Medication List - Last Reconciled 04/11/25 by Valeria Jaime RN aspirin (Adult Low Dose Aspirin) 81 mg PO DAILY atorvastatin 20 mg PO DAILY coenzyme Q10 100 mg PO DAILY metoprolol succinate ER 25 mg PO DAILY mv,Ca,mrq-ldxe-SD-lycopene 8 mg iron- 200 mcg-600 mcg (Centrum Men) 1 tab PO DAILY pantoprazole 20 mg PO DAILY warfarin (ven) Take 2 tabs daily by mouth on Tuesday, Tuesday, Tuesday and 1 tab the other days as directed; Nursing Note INR:2.3 out of therapeutic range 2.5-3.5 Medications and supplements reviewed No changes in health, diet, medications, or supplements, Denies any signs and symptoms of bleeding or bruising or clotting. Bleeding, bruising, clotting discussed Nutritional guidance given Dose: increase to 10mg x 3 days/ 5mg x 4 days F/U INR: 1 week due to low INRs Patient verbalizes understanding of instructions given Anti-Coag Initial Assessment Social Hx Patient Tobacco Use Status: Former Tobacco user alcohol intake: current Alcohol intake frequency: does not drink Coding Level of Care Code Est Patient Level 1 Diagnoses Current use of anticoagulant therapy Z79.01 Assessment & Plan Assessment & Plan (1) Current use of anticoagulant therapy: Code(s): Z79.01 - half-way (current) use of anticoagulants Category: Medical
== END 2025-04-11 10:59 | disposition home or self-care (01) ==
LOC: HO.ACS 10:03
PROVIDERS: PCP Internal Medicine; Visit Provider Internal Medicine Medical Oncology
DX: Z79.01 Long term (current) use of anticoagulants (principal)

== ENCOUNTER → 2025-04-11 10:03 | Outpatient (BNVA) | payer MEDICARE, SELFPAY | PROVIDERS: PCP Internal Medicine; Visit Provider Internal Medicine Medical Oncology | DX: Z95.2 Presence of prosthetic heart valve (principal); Z79.01 Long term (current) use of anticoagulants; Z51.81 Encounter for therapeutic drug level monitoring | CPT/HCPCS: 85610; 99211 ==

== ENCOUNTER 2025-04-18 09:56 | Outpatient (AMB) | payer MEDICARE, SELFPAY ==
[2025-04-18 10:33] LABS: Prothrombin Time Whole Bld POC 34.8 sec (11.1-13.5); ~PT, ~INR - Anti Coag Clinic 2.9 (0.9-1.1)
--- NOTE | 2025-04-18 10:40 | MHC.OFFVISCO ---
Intake Intake Visit Reasons: Anticoagulation Allergies No Known Allergies Allergy (Verified 04/18/25 10:27) Medication List - Last Reconciled 04/18/25 by Valeria Jaime RN aspirin (Adult Low Dose Aspirin) 81 mg PO DAILY atorvastatin 20 mg PO DAILY coenzyme Q10 100 mg PO DAILY metoprolol succinate ER 25 mg PO DAILY mv,Ca,vvh-hhbf-VN-lycopene 8 mg iron- 200 mcg-600 mcg (Centrum Men) 1 tab PO DAILY pantoprazole 20 mg PO DAILY warfarin () See Protocol Take 2 tabs daily by mouth on Tuesday, Tuesday, Tuesday and 1 tab the other days as directed; Nursing Note INR: 2.9 in therapeutic range Medications and supplements reviewed No changes in health, diet, medications, or supplements, Denies any signs and symptoms of bleeding or bruising or clotting. 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
--- OUTSIDE RECORDS SUMMARY | 2025-04-18 11:23 | XMS_ITS | Patient Health Record ---
Author Organization [facility] Address [address] [place] [address] Care Team Providers Care Architectural Technologist Name Role Phone Corey Tracy MD Primary Care Provider Darnell Pete Unavailable [phone] Reason For Referral No Information Plan Of Treatment No Information Insurance Providers Payer Name Payer Address Payer Phone Subscriber Number Group Number Insured Name Patient Relationship to Insured Coverage Start Date Coverage End Date MEDICARE OF [place] [address] [place] [address] [id number] JOSE CORADO Self - patient is the insured [facility] SU[employer]MENTAL [employer]AN [address] [place] [address] [phone] [id number] JOSE CORADO Self - patient is the insured
== END 2025-04-18 10:44 | disposition home or self-care (01) ==
LOC: HO.ACS 09:56
PROVIDERS: PCP Internal Medicine; Visit Provider Internal Medicine Medical Oncology
DX: Z79.01 Long term (current) use of anticoagulants (principal)

== ENCOUNTER → 2025-04-18 09:56 | Outpatient (BNVA) | payer MEDICARE, SELFPAY | PROVIDERS: PCP Internal Medicine; Visit Provider Internal Medicine Medical Oncology | DX: Z95.2 Presence of prosthetic heart valve (principal); Z79.01 Long term (current) use of anticoagulants; Z51.81 Encounter for therapeutic drug level monitoring | CPT/HCPCS: 85610; 99211 ==

== ENCOUNTER 2025-04-19 11:55 | Outpatient (AMB) | payer MEDICARE, SELFPAY ==
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
[2025-04-19 12:00] VITALS: BP 186/78; PULSE 61; TEMP 36.3; O2SAT 98; BMI 16.3
[2025-04-19 12:12] VITALS: BP 178/76
--- OUTSIDE RECORDS SUMMARY | 2025-04-19 12:58 | XMS_ITS | Patient Health Record ---
Author Organization [facility] Address [address] [place] [address] Care Team Providers Care Payroll Administrative Assistant Name Role Phone Corey Tracy MD Primary Care Provider Darnell Pete Unavailable [phone] Reason For Referral No Information Plan Of Treatment No Information Insurance Providers Payer Name Payer Address Payer Phone Subscriber Number Group Number Insured Name Patient Relationship to Insured Coverage Start Date Coverage End Date MEDICARE OF [place] [address] [place] [address] [id number] JOSE CORADO Self - patient is the insured [facility] SUPPLEMENTAL PLAN [address] [place] [address] [phone] [id number] JOSE CORADO Self - patient is the insured
== END 2025-04-19 12:19 | disposition home or self-care (01) ==
LOC: HO.HMCHD 11:55
PROVIDERS: PCP Internal Medicine; Visit Provider Physician Assistant
DX: I10 Essential (primary) hypertension (principal); I48.91 Unspecified atrial fibrillation; K21.9 Gastro-esophageal reflux disease without esophagitis; D64.9 Anemia, unspecified

== ENCOUNTER → 2025-04-19 11:55 | Outpatient (BNVA) | payer MEDICARE, SELFPAY | PROVIDERS: PCP Internal Medicine; Visit Provider Physician Assistant | DX: I10 Essential (primary) hypertension (principal); I48.0 Paroxysmal atrial fibrillation; K21.9 Gastro-esophageal reflux disease without esophagitis; D64.9 Anemia, unspecified; Z79.01 Long term (current) use of anticoagulants; Z79.899 Other long term (current) drug therapy; Z89.112 Acquired absence of left hand | CPT/HCPCS: 99212 ==

== ENCOUNTER 2025-05-02 10:00 | Outpatient (AMB) | payer MEDICARE, SELFPAY ==
[2025-05-02 10:06] LABS: Prothrombin Time Whole Bld POC 27.3 sec (11.1-13.5); ~PT, ~INR - Anti Coag Clinic 2.3 (0.9-1.1)
--- NOTE | 2025-05-02 10:22 | MHC.OFFVISCO ---
Intake Intake Visit Reasons: Anticoagulation Allergies No Known Allergies Allergy (Verified 05/02/25 10:01) Medication List - Last Reconciled 05/02/25 by Beatriz Arita RN aspirin (Adult Low Dose Aspirin) 81 mg PO DAILY atorvastatin 20 mg PO DAILY coenzyme Q10 100 mg PO DAILY metoprolol succinate ER 25 mg PO DAILY mv,Ca,qpj-vgyu-DW-lycopene 8 mg iron- 200 mcg-600 mcg (Centrum Men) 1 tab PO DAILY pantoprazole 20 mg PO DAILY warfarin () See Protocol Take 2 tabs daily by mouth on Tuesday, Tuesday, Tuesday and 1 tab the other days as directed; Nursing Note NO MISSED DOSES,CP,SOB OR SX OF BLEEDING. NO MED CHANGES. PT. STATES THAT HE HAS HAD MANY REDS/FRUITS AND 2-3 GREENS WEEKLY. BOOST TO 10MGM TODAY AND FOLLOW-UP IN 1 WEEK. MAY NEED TO INCREASE WEEKLY DOSE IF INR REMAINS LOW NEXT WEEK GOOD UNDERSTANDING OF DOSING INSTR Anti-Coag Initial Assessment Social Hx Patient Tobacco Use Status: Former Tobacco user alcohol intake: current Alcohol intake frequency: does not drink Coding Level of Care Code Est Patient Level 1 Diagnoses Current use of anticoagulant therapy Z79.01 Assessment & Plan Assessment & Plan (1) Current use of anticoagulant therapy: Code(s): Z79.01 - intermediate card tender (current) use of anticoagulants Category: Medical
--- OUTSIDE RECORDS SUMMARY | 2025-05-02 10:38 | XMS_ITS | Patient Health Record ---
Author Organization [facility] Address [address] [place] [address] Care Team Providers Care Administrative Support Assistant Name Role Phone Corey Tracy MD Primary Care Provider Darnell Pete Unavailable [phone] Reason For Referral No Information Plan Of Treatment No Information Insurance Providers Payer Name Payer Address Payer Phone Subscriber Number Group Number Insured Name Patient Relationship to Insured Coverage Start Date Coverage End Date MEDICARE OF [place] [address] [place] [address] [id number] JOSE CORADO Self - patient is the insured [facility] SUPPLEMENTAL PLAN [address] [place] [address] [id number] JOSE CORADO Self - patient is the insured
== END 2025-05-02 10:26 | disposition home or self-care (01) ==
LOC: HO.ACS 10:00
PROVIDERS: PCP Internal Medicine; Visit Provider Internal Medicine Medical Oncology
DX: Z79.01 Long term (current) use of anticoagulants (principal)

== ENCOUNTER → 2025-05-02 10:00 | Outpatient (BNVA) | payer MEDICARE, SELFPAY | PROVIDERS: PCP Internal Medicine; Visit Provider Internal Medicine Medical Oncology | DX: Z95.2 Presence of prosthetic heart valve (principal); Z79.01 Long term (current) use of anticoagulants; Z51.81 Encounter for therapeutic drug level monitoring | CPT/HCPCS: 85610; 99211 ==

== ENCOUNTER 2025-05-03 11:02 | Outpatient (AMB) | payer MEDICARE, SELFPAY ==
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
[2025-05-03 11:08] VITALS: BP 164/62; PULSE 74; TEMP 36.6; O2SAT 99
[2025-05-03 11:11] VITALS: RESP 16
[2025-05-03 11:18] VITALS: BP 174/84
[2025-05-03 11:33] VITALS: BP 176/80
--- OUTSIDE RECORDS SUMMARY | 2025-05-03 11:39 | XMS_ITS | Patient Health Record ---
Author Organization [facility] Address [address] [place] [address] Care Team Providers Care Medical Record Librarians Teacher Name Role Phone Corey Tracy MD Primary Care Provider Darnell Pete Unavailable [phone] Reason For Referral No Information Plan Of Treatment No Information Insurance Providers Payer Name Payer Address Payer Phone Subscriber Number Group Number Insured Name Patient Relationship to Insured Coverage Start Date Coverage End Date MEDICARE OF [place] [address] [place] [address] [id number] JOSE CORADO Self - patient is the insured [facility] SUPPLEMENTAL PLAN [address] [place] [address] [phone] [id number] JOSE CORADO Self - patient is the insured
== END 2025-05-03 11:36 | disposition home or self-care (01) ==
LOC: HO.HMCHD 11:03
PROVIDERS: PCP Internal Medicine; Visit Provider Physician Assistant
DX: I10 Essential (primary) hypertension (principal)

== ENCOUNTER → 2025-05-03 11:02 | Outpatient (BNVA) | payer MEDICARE, SELFPAY | PROVIDERS: PCP Internal Medicine; Visit Provider Physician Assistant | DX: I10 Essential (primary) hypertension (principal); Z79.899 Other long term (current) drug therapy | CPT/HCPCS: 99212 ==

== ENCOUNTER 2025-05-09 10:01 | Outpatient (AMB) | payer MEDICARE, SELFPAY ==
[2025-05-09 10:12] LABS: Prothrombin Time Whole Bld POC 31.9 sec (11.1-13.5); ~PT, ~INR - Anti Coag Clinic 2.7 (0.9-1.1)
--- OUTSIDE RECORDS SUMMARY | 2025-05-09 10:26 | XMS_ITS | Patient Health Record ---
Author Organization [facility] Address [address] [place] [address] Care Team Providers Care Water Supply Technician Name Role Phone Demarcus (RETIRED) Corey VIRAMONTES Primary Care Provide r Unavailable Darnell Ty Unavailable [phone] Reason For Referral No Information Plan Of Treatment No Information Insurance Providers Payer Name Payer Address Payer Phone Subscriber Number Group Number Insured Name Patient Relationship to Insured Coverage Start Date Coverage End Date MEDICARE OF [place] [address] [place] [address] [phone] [id number] JOSE CORADO Self - patient is the insured [facility] SUPPLEMENTAL PLAN [address] [place] [address] [phone] [id number] JOSE CORADO Self - patient is the insured
--- NOTE | 2025-05-09 10:27 | MHC.OFFVISCO ---
Intake Intake Visit Reasons: Anticoagulation Allergies No Known Allergies Allergy (Verified 05/09/25 10:03) Medication List - Last Reconciled 05/09/25 by Valeria Jaime RN aspirin (Adult Low Dose Aspirin) 81 mg PO DAILY atorvastatin 20 mg PO DAILY coenzyme Q10 100 mg PO DAILY metoprolol succinate ER 25 mg PO DAILY mv,Ca,ceo-okmk-HV-lycopene 8 mg iron- 200 mcg-600 mcg (Centrum Men) 1 tab PO DAILY pantoprazole 20 mg PO DAILY valsartan 80 mg PO BID warfarin (Octtoven) See Protocol Take 2 tabs daily by mouth on Tuesday, Tuesday, Tuesday and 1 tab the other days as directed; Nursing Note INR: 2.7 in therapeutic range Medications and supplements reviewed No changes in health, diet, medications, or supplements, Denies any signs and symptoms of bleeding or bruising or clotting. Bleeding, bruising, clotting discussed Nutritional guidance given- keep balancing diet Dose: 10mg x 3 days/ 5mg x 4 days F/U INR: 2 weeks Patient verbalizes understanding of instructions given Anti-Coag Initial Assessment Social Hx Patient Tobacco Use Status: Former Tobacco user alcohol intake: current Alcohol intake frequency: does not drink Coding Level of Care Code Est Patient Level 1 Diagnoses Current use of anticoagulant therapy Z79.01 Results AMB INR Fingerstick AMB INR Fingerstick 2.7 Last Edit by Valeria Jaime RN on 05/09/25 10:15 manual entry Assessment & Plan Assessment & Plan (1) Current use of anticoagulant therapy: Code(s): Z79.01 - terminal block 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
== END 2025-05-09 10:29 | disposition home or self-care (01) ==
LOC: HO.ACS 10:01
PROVIDERS: PCP Internal Medicine; Visit Provider Internal Medicine Medical Oncology
DX: Z79.01 Long term (current) use of anticoagulants (principal)

== ENCOUNTER → 2025-05-09 10:01 | Outpatient (BNVA) | payer MEDICARE, SELFPAY | PROVIDERS: PCP Internal Medicine; Visit Provider Internal Medicine Medical Oncology | DX: Z95.2 Presence of prosthetic heart valve (principal); Z79.01 Long term (current) use of anticoagulants; Z51.81 Encounter for therapeutic drug level monitoring | CPT/HCPCS: 85610; 99211 ==

== ENCOUNTER 2025-05-23 09:56 | Outpatient (AMB) | payer MEDICARE, SELFPAY ==
[2025-05-23 10:19] LABS: Prothrombin Time Whole Bld POC 28.2 sec (11.1-13.5); ~PT, ~INR - Anti Coag Clinic 2.4 (0.9-1.1)
--- OUTSIDE RECORDS SUMMARY | 2025-05-23 10:32 | XMS_ITS | Patient Health Record ---
Author Organization [facility] Address [address] [place] [address] Care Team Providers Care Sports Activities Foul Judge Name Role Phone Demarcus (RETIRED) Corey VIRAMONTES Primary Care Provide r Unavailable Darnell Ty Unavailable [phone] Reason For Referral No Information Plan Of Treatment No Information Insurance Providers Payer Name Payer Address Payer Phone Subscriber Number Group Number Insured Name Patient Relationship to Insured Coverage Start Date Coverage End Date MEDICARE OF [place] [address] [place] [address] [id number] JOSE CORADO Self - patient is the insured [facility] SUPPLEMENTAL PLAN [address] [place] [address] [phone] [id number] JOSE CORADO Self - patient is the insured
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
== END 2025-05-23 10:37 | disposition home or self-care (01) ==
LOC: HO.ACS 09:56
PROVIDERS: PCP Internal Medicine; Visit Provider Internal Medicine Medical Oncology
DX: Z79.01 Long term (current) use of anticoagulants (principal)

== ENCOUNTER → 2025-05-23 09:56 | Outpatient (BNVA) | payer MEDICARE, SELFPAY | PROVIDERS: PCP Internal Medicine; Visit Provider Internal Medicine Medical Oncology | DX: Z95.2 Presence of prosthetic heart valve (principal); Z79.01 Long term (current) use of anticoagulants; Z51.81 Encounter for therapeutic drug level monitoring | CPT/HCPCS: 85610; 99211 ==

== ENCOUNTER 2025-06-06 09:58 | Outpatient (AMB) | payer MEDICARE, SELFPAY ==
[2025-06-06 10:11] LABS: Prothrombin Time Whole Bld POC 38.8 sec (11.1-13.5); ~PT, ~INR - Anti Coag Clinic 3.2 (0.9-1.1)
--- NOTE | 2025-06-06 10:25 | MHC.OFFVISCO ---
Intake Intake Visit Reasons: Anticoagulation Allergies No Known Allergies Allergy (Verified 06/06/25 10:05) Medication List - Last Reconciled 06/06/25 by Joelle Connor, DARIO aspirin (Adult Low Dose Aspirin) 81 mg PO DAILY atorvastatin 20 mg PO DAILY coenzyme Q10 100 mg PO DAILY metoprolol succinate ER 25 mg PO DAILY mv,Ca,hdf-tqnz-NB-lycopene 8 mg iron- 200 mcg-600 mcg (Centrum Men) 1 tab PO DAILY pantoprazole 20 mg PO DAILY valsartan 80 mg PO BID warfarin (Octto) See Protocol Take 2 tabs daily by mouth on Tuesday, Tuesday, Tuesday and 1 tab the other days as directed; Nursing Note INR: 3.2 in therapeutic range of 2.5-3.5 Medications and supplements reviewed No changes in health, diet, medications, or supplements, Denies any signs and symptoms of bleeding or bruising or clotting. Bleeding, bruising, clotting discussed Nutritional guidance given Dose: 10mg X 4 days and 5mg X 3 days F/U INR: 2 weeks Patient verbalizes understanding of instructions given Anti-Coag Initial Assessment Social Hx Patient Tobacco Use Status: Former Tobacco user alcohol intake: current Alcohol intake frequency: does not drink Coding Level of Care Code Est Patient Level 1 Diagnoses Current use of anticoagulant therapy Z79.01 Assessment & Plan Assessment & Plan (1) Current use of anticoagulant therapy: Code(s): Z79.01 - intermediate teacher (current) use of anticoagulants Category: Medical
--- OUTSIDE RECORDS SUMMARY | 2025-06-06 10:36 | XMS_ITS | Patient Health Record ---
Author Organization [facility] Address [address] [place] [address] Care Team Providers Care Director Of Guidance Name Role Phone Demarcus (RETIRED) Corey VIRAMONTES Primary Care Provide r Unavailable Darnell Ty Unavailable [phone] Reason For Referral No Information Plan Of Treatment No Information Insurance Providers Payer Name Payer Address Payer Phone Subscriber Number Group Number Insured Name Patient Relationship to Insured Coverage Start Date Coverage End Date MED[place]ARE OF [place] [address] [place] [address] [id number] JOSE CORADO Self - patient is the insured [facility] SUPPLEMENTAL PLAN [address] [place] [id number] JOSE CORADO Self - patient is the insured
== END 2025-06-06 10:29 | disposition home or self-care (01) ==
LOC: HO.ACS 09:58
PROVIDERS: PCP Internal Medicine; Visit Provider Internal Medicine Medical Oncology
DX: Z79.01 Long term (current) use of anticoagulants (principal)

== ENCOUNTER → 2025-06-06 09:58 | Outpatient (BNVA) | payer MEDICARE, SELFPAY | PROVIDERS: PCP Internal Medicine; Visit Provider Internal Medicine Medical Oncology | DX: Z51.81 Encounter for therapeutic drug level monitoring (principal); Z79.01 Long term (current) use of anticoagulants | CPT/HCPCS: 85610; 99211 ==

== ENCOUNTER 2025-06-18 11:04 | Outpatient (AMB) | payer MEDICARE, SELFPAY ==
--- NOTE | 2025-06-18 11:04 | A.OFFPC_ITS ---
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 Required: No Accompanied by: Self / Same As Patient Allergies No Known Allergies Allergy (Verified 06/18/25 11:05) Tobacco use date assessed: 01/18/25 Dental Screening Dental Screen Date: 01/18/25 [facility] Medical History (Updated 04/19/25 @ 17:33 by ARMIN Loera) GERD (gastroesophageal reflux disease) Mitral valve regurgitation Tricuspid valve regurgitation Blind left eye Anemia Atrial fibrillation HTN (hypertension) Thrombocytopenia Surgical History (Updated 04/19/25 @ 17:33 by ARMIN Loera) History of amputation of left hand H/O mechanical aortic valve replacement Family History (Updated 01/18/25 @ 11:23 by INDER Valverde) Father Cancer of prostate Mother No problems noted. Social History (Updated 01/18/25 @ 11:24 by INDER Valverde) Housing: Apartment Alcohol intake: current Alcohol intake frequency: does not drink Patient Tobacco Use Status: Former Tobacco user e-Cigarette/Vaping Use: Never Used service: No Current occupational status: retired Cognitive needs: Yes (left arm prosthetic) Hearing needs: No Vision needs: Yes (rx glasses) Questionnaire Thrive Questionnaire Date Thrive assessed: 01/18/25 AUDIT C Alcohol Use Questionnaire (AUDIT-C) 1. How often do you have a drink containing alcohol?: Never Total Score: 0 TOYIN-7 AMB Questionnaire TOYIN-7 Date TOYIN - 7 assessed: 01/18/25 Source: Developed by Drs. Darnell Noel, Ragini Antony, Candido Christine and colleagues, with an educational mynor from [employer]. Physical exam (Primary Care) Vital Signs: Last Vital Signs Temp 97.8 F 06/18/25 11:05 Pulse 66 06/18/25 11:05 Resp 16 06/18/25 11:05 BP 190/78 H 06/18/25 11:05 Pulse Ox 99 06/18/25 11:05 Oxygen Delivery Method Room Air 06/18/25 11:05 BMI result Body Mass Index 16.0 Tobacco/Smoking Status: Tobacco use Status Tobacco use date assessed 01/18/25 06/18/25 11:12 Patient Tobacco Use Status Former Tobacco user 06/18/25 11:12 e-Cigarette/Vaping Use Never Used 06/18/25 11:12 Thrive Assessment: Date of Thrive Assessment Date Thrive assessed 01/18/25 06/18/25 11:12 Coding Level of Care Code Est Pt Level 4 (52721) Complex EM visit Add On G2211 Diagnoses Primary hypertension I10 Hypertension type: primary hypertension Time Spent (min) 60 Assessment & Plan Assessment & Plan (1) HTN (hypertension): Code(s): I10 - Essential (primary) hypertension Category: Medical Qualifiers: Hypertension type: primary hypertension Qualified Code(s): I10 - Essential (primary) hypertension Plan: Uncontrolled blood pressures without the metoprolol previously prescribed valsartan however resulted in nightmares which patient discontinued shortly after being started on last clinic visit. At this visit today or pressure is elevated over 198 multiple requests me to initiate new medication however patient declined the same. Also that patient refused having any complaints of headaches or change in vision necessitating admission to the hospitalist that visit to the ED however patient declined the same Ca and he feels well and he does not need to see the hospital or kneeling and that sort. I explained if he has worsening of vision or change in symptoms he should present to the hospital right away. Plan History of Present Illness The patient is a 75-year-old male presenting with uncontrolled essential hypertension and stress-related concerns. He reports that his blood pressure, previously stable, has become elevated with recent readings reaching 190/80 mmHg. This increase in blood pressure coincided with significant stress episodes since April, attributed to financial difficulties, including a fraudulent banking transaction, which was exacerbated by environmental stressors such as recent heat waves. The patient was prescribed Valsartan by Dr. Ross as part of his hypertension management; however, he experienced side effects including vivid nightmares and increased nocturnal urination. These symptoms emerged the day after beginning Valsartan and resolved upon discontinuation of the drug. The patient had not experienced nightmares prior to taking Valsartan and confirms no recurrence since stopping the medication. He acknowledges increased stress is possibly contributing to his elevated blood pressure, with concerns over continuity in healthcare providers and adjustments to new medical equipment further adding to his anxiety. Despite these issues, no history of psychiatric conditions is noted, although he experiences mild anxiety related to these life changes. Medical History: - Essential Hypertension - History of heart valve replacement surgery 11 years ago - Use of Warfarin with bi-weekly INR monitoring Surgical History: - Heart valve replacement surgery performed 11 years ago Medications: - Warfarin (managed with an INR goal range of 2.5 to 3.5) - Discontinued use of Valsartan due to adverse effects Health Maintenance - Bi-weekly INR monitoring for Warfarin therapy COVID: Tetanus (Every 10 years): Shingrix (50+): Colonoscopy (45-75): HIV (15-65), Syphillis, Hep C: Pap Smear: LDCT: Social History - Resides alone - Subject to stress from financial issues and environmental changes - Discomfort with changes in healthcare provider continuity Review of Systems - Cardiovascular: Reports elevated blood pressure - Neurological: Reports headaches associated with high blood pressure; denies other neurological symptoms - Genitourinary: Reports increased nocturnal urination with Valsartan - Psychiatric: Reports stress and anxiety related to personal issues; stress noted from medical system changes - Sleep: Reports nightmares while on Valsartan, resolved after discontinuation Constitutional: No fever, chills, sweats, weakness, or fatigue. Appetite is normal. Eye: No blurring of vision or double vision. No icterus. Ear/Nose/Mouth/Throat: No sore throat or nasal congestion. Respiratory: No shortness of breath, cough, wheezing. Cardiovascular: No chest pain, palpitations or peripheral edema. Gastrointestinal: No nausea, vomiting, diarrhea, constipation, or abdominal pain Genitourinary: no dysuria, hematuria, urgency or incontinence of urine. Endocrine: denies excessive thirst or polyuria, cold or heat intolerance Musculoskeletal: No back pain, joint pain or stiffness, joint swelling Integumentary: No rash or pruritis. Neurologic: No confusion, numbness, tingling, or headache. Psychiatric: No anxiety. No depression. Physical Exam General: Alert and oriented, Well nourished, No acute distress. Eye: Pupils are equal, round and reactive to light, Intact accommodation, Extraocular movements are intact, Normal conjunctiva, Vision unchanged. HENT: Normocephalic, Atraumatic, Tympanic membranes are clear, Normal hearing, Oral mucosa is moist, No pharyngeal erythema, Ear canals patent. Respiratory: Lungs CTA bilaterally, No wheeze, Respirations are non-labored. Cardiovascular: Regular rate, Regular rhythm, S1 auscultated, S2 auscultated, No murmur, Good pulses equal in all extremities, Normal peripheral perfusion, No edema. Gastrointestinal: Soft, Non-tender, Non-distended, Normal bowel sounds, No organomegaly. Musculoskeletal: Normal range of motion, Normal strength, No tenderness, No swelling, No deformity, Normal gait. Integumentary: Warm, Dry, [place], Intact. Neurologic: Alert, Oriented, Normal sensory, Normal motor function, No focal defects, Cranial Nerves II-XII are grossly intact, Normal deep tendon reflexes. Psychiatric: Cooperative, Appropriate mood & affect, Normal judgment. Results Assessment and Plan 1. Essential Hypertension - Addressed the critically elevated blood pressure. - Emphasized the risks associated with hypertension, including stroke and cardiac arrest. - Recommended daily blood pressure monitoring for two weeks to gauge control at home. - Instructed the patient to purchase a blood pressure monitor and track readings. 2. Side effects of Valsartan - Acknowledged the side effects including nightmares and increased nocturnal urination post-Valsartan initiation, resolving upon cessation. - Decided to avoid Valsartan in future antihypertensive management. 3. Stress-related concerns - Identified stress from personal and environmental changes as a significant factor in the patient's symptoms. - Discussed behavior modification and stress management strategies. 4. Biscuspid Aortic Valve, post mechanical valve replacement - Replaced 12 years ago and currently on warfarin with most recent at 3.2 per EMR. Follows at anticoagulation clinic Plan Patient was informed and verbally consented to the use of an ambient scribe for clinic note documentation during this visit. 1. Essential Hypertension - Emphasized the critical need for controlled blood pressure to mitigate stroke and cardiac risk. - Recommended acquiring a home blood pressure monitor for daily two-week monitoring. - Highlighted the risk of stroke and myocardial infarction due to elevated levels. 2. Side Effects Of Valsartan - Recognized the recurrence of distressing symptoms with Valsartan which resolved on discontinuation. - Advised future avoidance of Valsartan. 3. Stress-Related Concerns - Discussed impact of stress on health and current symptoms. - Recommended behavioral and cognitive strategies for stress management. 4. Biscuspid Aortic Valve, post mechanical valve replacement - Continue Warfarin - Continue to follow diet & Anti-coag clinic Discussion Notes During the examination, I emphasized the severity of the patient's current hypertension and its associated health risks, including stroke and cardiac complications. We discussed the adverse reactions the patient had to Valsartan, and he recounted the resolution of these symptoms post-discontinuation. I have suggested daily blood pressure monitoring to better understand his current condition, and we agreed on a follow-up appointment in two weeks to assess these readings. I acknowledged the significant stressors due to personal and financial challenges, changes in healthcare provider consistency, and proposed potential behavioral strategies to mitigate stress effects. Patient Instructions - Buy and use a home blood pressure monitor; check every morning. - Record your blood pressure readings for review at your next appointment. - Avoid taking Valsartan due to previous side effects. - Return to the clinic in two weeks with your blood pressure log. - Seek immediate care for severe headaches, chest pain, or trouble breathing.
[2025-06-18 11:05] VITALS: BP 190/78; PULSE 66; RESP 16; TEMP 36.6; O2SAT 99; BMI 16.0
--- OUTSIDE RECORDS SUMMARY | 2025-06-18 11:58 | XMS_ITS | Patient Health Record ---
Author Organization [facility] Address [address] [place] [address] Care Team Providers Care Circular Stuffer Name Role Phone Demarcus (RETIRED) Corey VIRAMONTES Primary Care Provide r Unavailable Darnell Ty Unavailable [phone] Reason For Referral No Information Plan Of Treatment No Information Insurance Providers Payer Name Payer Address Payer Phone Subscriber Number Group Number Insured Name Patient Relationship to Insured Coverage Start Date Coverage End Date MEDICARE OF [place] [address] [place] [address] [id number] JOSE CORADO Self - patient is the insured [facility] SUPPLEMENTAL PLAN [address] [place] [address] [id number] JOSE CORADO Self - patient is the insured
== END 2025-06-18 11:29 | disposition home or self-care (01) ==
LOC: HO.HMCHD 11:04
PROVIDERS: PCP Student in an Organized Health Care Education/Training Program; Visit Provider Student in an Organized Health Care Education/Training Program
DX: I10 Essential (primary) hypertension (principal)

== ENCOUNTER → 2025-06-18 11:04 | Outpatient (BNVA) | payer MEDICARE, SELFPAY | PROVIDERS: PCP Internal Medicine; Visit Provider Student in an Organized Health Care Education/Training Program | DX: I10 Essential (primary) hypertension (principal); Z95.2 Presence of prosthetic heart valve; Z79.01 Long term (current) use of anticoagulants | CPT/HCPCS: 99212 ==

== ENCOUNTER 2025-06-20 10:03 | Outpatient (AMB) | payer MEDICARE, SELFPAY ==
[2025-06-20 10:20] LABS: Prothrombin Time Whole Bld POC 41.8 sec (11.1-13.5); ~PT, ~INR - Anti Coag Clinic 3.5 (0.9-1.1)
--- NOTE | 2025-06-20 10:22 | MHC.OFFVISCO ---
Intake Intake Visit Reasons: Anticoagulation Allergies valsartan Adverse Reaction (Mild, Verified 06/20/25 10:04) Nightmare Medication List - Last Reconciled 06/20/25 by Joelle Connor, DARIO aspirin (Adult Low Dose Aspirin) 81 mg PO DAILY atorvastatin 20 mg PO DAILY coenzyme Q10 100 mg PO DAILY metoprolol succinate ER 25 mg PO DAILY mv,Ca,zyq-wznh-AK-lycopene 8 mg iron- 200 mcg-600 mcg (Centrum Men) 1 tab PO DAILY pantoprazole 20 mg PO DAILY warfarin (Octtoven) See Protocol Take 2 tabs daily by mouth on Tuesday, Tuesday, Tuesday and 1 tab the other days as directed; Nursing Note INR: 3.5 in therapeutic range of 2.5-3.5 Medications and supplements reviewed No changes in health, diet, medications, or supplements, Denies any signs and symptoms of bleeding or bruising or clotting. Bleeding, bruising, clotting discussed Nutritional guidance given Dose: 10mg X 4 days and 5mg X 3 days (M/W/F) F/U INR: 2 weeks Patient verbalizes understanding of instructions given Anti-Coag Initial Assessment Social Hx Patient Tobacco Use Status: Former Tobacco user alcohol intake: current Alcohol intake frequency: does not drink Coding Level of Care Code Est Patient Level 1 Diagnoses Current use of anticoagulant therapy Z79.01 Assessment & Plan Assessment & Plan (1) Current use of anticoagulant therapy: Code(s): Z79.01 - director long term care (current) use of anticoagulants Category: Medical
--- OUTSIDE RECORDS SUMMARY | 2025-06-20 11:20 | XMS_ITS | Patient Health Record ---
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
== END 2025-06-20 10:34 | disposition home or self-care (01) ==
LOC: HO.ACS 10:03
PROVIDERS: PCP Internal Medicine; Visit Provider Internal Medicine Medical Oncology
DX: Z79.01 Long term (current) use of anticoagulants (principal)

== ENCOUNTER → 2025-06-20 10:03 | Outpatient (BNVA) | payer MEDICARE, SELFPAY | PROVIDERS: PCP Internal Medicine; Visit Provider Internal Medicine Medical Oncology | DX: Z51.81 Encounter for therapeutic drug level monitoring (principal); Z79.01 Long term (current) use of anticoagulants | CPT/HCPCS: 85610; 99211 ==

== ENCOUNTER 2025-07-02 10:04 | Outpatient (AMB) | payer MEDICARE, SELFPAY ==
--- NOTE | 2025-07-02 10:05 | A.OFFPC_ITS ---
Vital Signs 07/02/25 10:09 Height 5 ft 6 in Weight 100 lb BMI 16.1 BP 214/95 H Blood Pressure Location Rt brachial Position Sitting Respiration 18 Pulse 72 Pulse Source Pulse Oximeter Temp 97.2 F Temp Source Temporal Artery Scan Pulse Oximetry (%) 99 Oxygen Delivery Method Room Air Intake Visit Reasons: 2 week f/u Assistant Auditor Required: No Accompanied by: Self / Same As Patient Allergies valsartan Adverse Reaction (Mild, Verified 07/02/25 10:06) Nightmare Tobacco use date assessed: 01/18/25 Dental Screening Dental Screen Date: 01/18/25 HPI HPI Comments History of Present Illness Details The patient is a 75-year-old male presenting with concern for blood pressure management. He reports consistently elevated blood pressure readings, notably as high as 221/85 mmHg, despite taking metoprolol for management. The patient has been monitoring his blood pressure at home, reporting fluctuations with highest readings in the morning, often reaching 156 mmHg, and slight reductions following exercise, with readings occasionally showing 133 mmHg. He notes these readings despite consistent medication compliance. 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 He follows a routine of taking his blood pressure medications regularly and engaging in exercise through cardiotherapy, which has shown to lower his readings during the day following physical activity. His hypertension has been a longstanding issue, previously managed by his former physician, where metoprolol was indicated more for cardiac protection rather than blood pressure control. However, given the current uncontrolled levels, the addition of an antihypertensive agent is being considered to better manage his hypertension. Medical History: - Essential Hypertension - Hyperlipidemia - Atrial Fibrillation - History of previous elevated INR manag ed within normal therapeutic range Medications: - Metoprolol 25 mg daily for hypertensio n - Atorvastatin for hyperlipidemia - Aspirin for cardiac event prophylaxis - Warfarin for anticoagulation managemen t [facility] Medical History (Updated 07/02/25 @ 10:32 by Obey Malik MD) GERD (gastroesophageal reflux disease) Mitral valve regurgitation Tricuspid valve regurgitation Blind left eye Anemia Atrial fibrillation HTN (hypertension) Thrombocytopenia Surgical History (Updated 04/19/25 @ 17:33 by ARMIN Loera) History of amputation of left hand H/O mechanical aortic valve replacement Family History (Updated 01/18/25 @ 11:23 by INDER Valverde) Father Cancer of prostate Mother No problems noted. Social History (Updated 01/18/25 @ 11:24 by INDER Valverde) Housing: Apartment Alcohol intake: current Alcohol intake frequency: does not drink Patient Tobacco Use Status: Former Tobacco user e-Cigarette/Vaping Use: Never Used service: No Current occupational status: retired Cognitive needs: Yes (left arm prosthetic) Hearing needs: No Vision needs: Yes (rx glasses) Questionnaire Thrive Questionnaire Date Thrive assessed: 01/18/25 TOYIN-7 AMB Questionnaire TOYIN-7 Date TOYIN - 7 assessed: 01/18/25 Source: Developed by Drs. Darnell Noel, Ragini Antony, Candido Christine and colleagues, with an educational mynor from [employer]. Review of Systems Const Details: - Cardiovascular: Denies chest pain, shortness of breath - Gastrointestinal: Denies nausea, vomiting - Ophthalmologic: Denies changes in vision All systems reviewed & are unremarkable except as noted in HPI and below Physical exam (Primary Care) Vital Signs: Last Vital Signs Temp 97.2 F 07/02/25 10:09 Pulse 72 07/02/25 10:09 Resp 18 07/02/25 10:09 BP 214/95 H 07/02/25 10:09 Pulse Ox 99 07/02/25 10:09 Oxygen Delivery Method Room Air 07/02/25 10:09 BMI result Body Mass Index 16.1 Tobacco/Smoking Status: Tobacco use Status Tobacco use date assessed 01/18/25 07/02/25 10:16 Patient Tobacco Use Status Former Tobacco user 07/02/25 10:16 e-Cigarette/Vaping Use Never Used 07/02/25 10:16 Thrive Assessment: Date of Thrive Assessment Date Thrive assessed 01/18/25 07/02/25 10:16 Const Other: General: +Alert and oriented, Well nourished, No acute distress. Eye: Pupils are equal, round and reactive to light, Intact accommodation, Extraocular movements are intact, Normal conjunctiva, Vision unchanged. HENT: Normocephalic, Atraumatic, Tympanic membranes are clear, Normal hearing, Oral mucosa is moist, No pharyngeal erythema, Ear canals patent. Respiratory: Lungs CTA bilaterally, No wheeze, Respirations are non-labored. Cardiovascular: Regular rate, Regular rhythm, S1 auscultated, S2 auscultated, No murmur, Good pulses equal in all extremities, Normal peripheral perfusion, No edema. Gastrointestinal: Soft, Non-tender, Non-distended, Normal bowel sounds, No organomegaly. Musculoskeletal: Normal range of motion, Normal strength, No tenderness, No swelling, No deformity, Normal gait. Integumentary: Warm, Dry, [place], Intact. Neurologic: Alert, Oriented, Normal sensory, Normal motor function, No focal defects, Cranial Nerves II-XII are grossly intact, Normal deep tendon reflexes. Psychiatric: Cooperative, Appropriate mood & affect, Normal judgment. Coding Level of Care Code Est Pt Level 4 (28617) Complex EM visit Add On G2211 Diagnoses Primary hypertension I10 Hypertension type: primary hypertension Atrial fibrillation, unspecified type I48.91 Atrial fibrillation type: unspecified History of aortic valve replacement Z95.2 Current use of anticoagulant therapy Z79.01 Assessment & Plan Assessment & Plan (1) HTN (hypertension): Comment: - Only on metoprolol succinate with pressures over 200's therefore will start on nefidipine. Pressures at home elevated to over 150. Code(s): I10 - Essential (primary) hypertension Category: Medical Qualifiers: Hypertension type: primary hypertension Qualified Code(s): I10 - Essential (primary) hypertension (2) Atrial fibrillation: Comment: - On Warfarin & Metoprolol Succinate Code(s): I48.91 - Unspecified atrial fibrillation Category: Medical Qualifiers: Atrial fibrillation type: unspecified Qualified Code(s): I48.91 - Unspecified atrial fibrillation (3) History of aortic valve replacement: Comment: mechanical. 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 We discussed the risks of sustained high blood pressure, including potential damage to cardiovascular and other systems, and the importance of strict adherence to the new medication regimen. I emphasized the need for careful monitoring, advised on the potential signs requiring emergency care, and reiterated the continuation of the current lipid and anticoagulation management plans. Recommended evaluation in the ED but wanted to reutrn home Medications: New nifedipine ER 30 mg PO DAILY 30 tabs 0RF 30 days I10 - Essential (primary) hypertension Patient Instructions: - Start taking nifedipine 30 mg daily along with existing metoprolol - Record blood pressure readings daily for 30 days - Visit the emergency room if blood pressure readings exceed 200 mmHg or if feeling lightheaded - Continue taking prescribed atorvastatin and warfarin regularly - Follow up with anticoagulation clinic as scheduled
[2025-07-02 10:09] VITALS: BP 214/95; PULSE 72; RESP 18; TEMP 36.2; O2SAT 99; BMI 16.1
--- OUTSIDE RECORDS SUMMARY | 2025-07-02 11:49 | XMS_ITS | Patient Health Record ---
Author Organization [facility] Address [address] [place] [address] Care Team Providers Care Hat Blocker Name Role Phone Demarcus (RETIRED) Corey VIRAMONTES Primary Care Provide r Unavailable Darnell Ty Unavailable [phone] Reason For Referral No Information Plan Of Treatment No Information Insurance Providers Payer Name Payer Address Payer Phone Subscriber Number Group Number Insured Name Patient Relationship to Insured Coverage Start Date Coverage End Date MEDICARE OF [place] [address] [place] [address] [id number] JOSE CORADO Self - patient is the insured [facility] SUPPLEMENTAL PLAN [address] [place] [address] [phone] [id number] JOSE CORADO Self - patient is the insured
== END 2025-07-02 10:44 | disposition home or self-care (01) ==
LOC: HO.HMCHD 10:05
PROVIDERS: PCP Student in an Organized Health Care Education/Training Program; Visit Provider Student in an Organized Health Care Education/Training Program
DX: I10 Essential (primary) hypertension (principal); I48.91 Unspecified atrial fibrillation; Z95.2 Presence of prosthetic heart valve; Z79.01 Long term (current) use of anticoagulants

== ENCOUNTER → 2025-07-02 10:04 | Outpatient (BNVA) | payer MEDICARE, SELFPAY | PROVIDERS: PCP Internal Medicine; Visit Provider Student in an Organized Health Care Education/Training Program | DX: I10 Essential (primary) hypertension (principal); I48.91 Unspecified atrial fibrillation; Z95.2 Presence of prosthetic heart valve; Z79.01 Long term (current) use of anticoagulants | CPT/HCPCS: 99212 ==

== ENCOUNTER 2025-07-04 09:56 | Outpatient (AMB) | payer MEDICARE, SELFPAY ==
--- NOTE | 2025-06-27 12:01 | MHC.OFFVISCO ---
Intake Intake Visit Reasons: Anticoagulation Allergies valsartan Adverse Reaction (Mild, Verified 06/20/25 10:04) Nightmare Nursing Note INR: 3.5 in therapeutic range of 2.5-3.5 Medications and supplements reviewed No changes in health, diet, medications, or supplements, Denies any signs and symptoms of bleeding or bruising or clotting. Bleeding, bruising, clotting discussed Nutritional guidance given Dose: [] F/U INR: []Patient verbalizes understanding of instructions given Anti-Coag Initial Assessment Social Hx Patient Tobacco Use Status: Former Tobacco user alcohol intake: current Alcohol intake frequency: does not drink Coding Diagnoses Current use of anticoagulant therapy Z79.01 Assessment & Plan Assessment & Plan (1) Current use of anticoagulant therapy: Code(s): Z79.01 - [facility] (current) use of anticoagulants Category: Medical
--- NOTE | 2025-07-04 10:42 | MHC.OFFVISCO ---
Intake Intake Visit Reasons: Anticoagulation Allergies valsartan Adverse Reaction (Mild, Verified 07/04/25 10:16) Nightmare Medication List - Last Reconciled 07/04/25 by Valeria Jaime RN aspirin (Adult Low Dose Aspirin) 81 mg PO DAILY atorvastatin 20 mg PO DAILY coenzyme Q10 100 mg PO DAILY metoprolol succinate ER 25 mg PO DAILY 90 days mv,Ca,uef-msos-RE-lycopene 8 mg iron- 200 mcg-600 mcg (Centrum Men) 1 tab PO DAILY nifedipine ER 30 mg PO DAILY 30 days pantoprazole 20 mg PO DAILY warfarin () See Protocol Take 2 tabs daily by mouth on Tuesday, Tuesday, Tuesday and 1 tab the other days as directed; Nursing Note INR 4.3 out of therapeutic range Medications and supplements reviewed Patient status: pt states he has not had his usual weekly spinche, stress lessening now- states his b/p 150's/ 60-70s he has not started new b/p med, he tried to take b/p rx over the summer but caused night wang or strange dreams back when he was going through a financial hack, Medications or supplements: may start niphedapine but is reluctant- 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 Patient verbalizing understanding of instructions given. Anti-Coag Initial Assessment Social Hx Patient Tobacco Use Status: Former Tobacco user alcohol intake: current Alcohol intake frequency: does not drink Coding Level of Care Code Est Patient Level 1 Diagnoses Current use of anticoagulant therapy Z79.01 Results AMB INR Fingerstick AMB INR Fingerstick 4.3 Last Edit by Valeria Jaime RN on 07/04/25 10:23 manual entry Assessment & Plan Assessment & Plan (1) Current use of anticoagulant therapy: Code(s): Z79.01 - assisted (current) use of anticoagulants Category: Medical
[2025-07-04 11:02] LABS: Prothrombin Time Whole Bld POC 52.0 sec (11.1-13.5); ~PT, ~INR - Anti Coag Clinic 4.3 (0.9-1.1)
--- OUTSIDE RECORDS SUMMARY | 2025-07-04 11:55 | XMS_ITS | Patient Health Record ---
Author Organization [facility] Address [address] [place] [address] Care Team Providers Care Photograph Developer Name Role Phone Demarcus (RETIRED) Corey VIRAMONTES Primary Care Provide r Unavailable Darnell Ty Unavailable [phone] Reason For Referral No Information Plan Of Treatment No Information Insurance Providers Payer Name Payer Address Payer Phone Subscriber Number Group Number Insured Name Patient Relationship to Insured Coverage Start Date Coverage End Date MEDICARE OF [place] [address] [place] [address] [id number] JOSE CORADO Self - patient is the insured [facility] SUPPLEMENTAL PLAN [address] [place] [address] [phone] [id number] JOSE CORADO Self - patient is the insured
== END 2025-07-04 10:48 | disposition home or self-care (01) ==
LOC: HO.ACS 09:56
PROVIDERS: PCP Student in an Organized Health Care Education/Training Program; Visit Provider Internal Medicine Medical Oncology
DX: Z79.01 Long term (current) use of anticoagulants (principal)

== ENCOUNTER → 2025-07-04 09:56 | Outpatient (BNVA) | payer MEDICARE, SELFPAY | PROVIDERS: PCP Student in an Organized Health Care Education/Training Program; Visit Provider Internal Medicine Medical Oncology | DX: Z51.81 Encounter for therapeutic drug level monitoring (principal); Z79.01 Long term (current) use of anticoagulants | CPT/HCPCS: 85610; 99211 ==

== ENCOUNTER 2025-07-11 08:58 | Outpatient (AMB) | payer MEDICARE, SELFPAY ==
[2025-07-11 09:13] LABS: Prothrombin Time Whole Bld POC 40.5 sec (11.1-13.5); ~PT, ~INR - Anti Coag Clinic 3.4 (0.9-1.1)
--- NOTE | 2025-07-11 09:15 | MHC.OFFVISCO ---
Intake Intake Visit Reasons: Anticoagulation Allergies valsartan Adverse Reaction (Mild, Verified 07/11/25 09:01) Nightmare Medication List - Last Reconciled 07/11/25 by Joelle Connor, DARIO aspirin (Adult Low Dose Aspirin) 81 mg PO DAILY atorvastatin 20 mg PO DAILY coenzyme Q10 100 mg PO DAILY metoprolol succinate ER 25 mg PO DAILY 90 days mv,Ca,wrf-zpyz-LM-lycopene 8 mg iron- 200 mcg-600 mcg (Centrum Men) 1 tab PO DAILY nifedipine ER 30 mg PO DAILY 30 days pantoprazole 20 mg PO DAILY warfarin () See Protocol Take 2 tabs daily by mouth on Tuesday, Tuesday, Tuesday and 1 tab the other days as directed; Nursing Note INR: 3.4 in therapeutic range of 2.5-3.5 Medications and supplements reviewed No changes in health, diet, medications, or supplements, Denies any signs and symptoms of bleeding or bruising or clotting. Bleeding, bruising, clotting discussed Nutritional guidance given to balance reds and greens Dose: 10mg X 4 days and 5mg X 3 days (M/W/F) but today he will only do 5mg as opposed to 10mg at his request due to INR being at the high end of his range. F/U INR: 2 weeks Patient verbalizes understanding of instructions given Anti-Coag Initial Assessment Social Hx Patient Tobacco Use Status: Former Tobacco user alcohol intake: current Alcohol intake frequency: does not drink Coding Level of Care Code Est Patient Level 1 Diagnoses Current use of anticoagulant therapy Z79.01 Assessment & Plan Assessment & Plan (1) Current use of anticoagulant therapy: Code(s): Z79.01 - [facility] (current) use of anticoagulants Category: Medical
--- OUTSIDE RECORDS SUMMARY | 2025-07-11 10:21 | XMS_ITS | Patient Health Record ---
Author Organization [facility] Address [address] [place] [address] Care Team Providers Care Theater Technician Name Role Phone Demarcus (RETIRED) Corey VIRAMONTES Primary Care Provide r Unavailable Darnell Ty Unavailable [phone] Reason For Referral No Information Plan Of Treatment No Information Insurance Providers Payer Name Payer Address Payer Phone Subscriber Number Group Number Insured Name Patient Relationship to Insured Coverage Start Date Coverage End Date MEDICARE OF [place] [address] [place] [address] [id number] JOSE CORADO Self - patient is the insured [facility] SUPPLEMENTAL PLAN [address] [place] [address] [id number] JOSE CORADO Self - patient is the insured
== END 2025-07-11 09:21 | disposition home or self-care (01) ==
LOC: HO.ACS 08:58
PROVIDERS: PCP Student in an Organized Health Care Education/Training Program; Visit Provider Internal Medicine Medical Oncology
DX: Z79.01 Long term (current) use of anticoagulants (principal)

== ENCOUNTER → 2025-07-11 08:58 | Outpatient (BNVA) | payer MEDICARE, SELFPAY | PROVIDERS: PCP Student in an Organized Health Care Education/Training Program; Visit Provider Internal Medicine Medical Oncology | DX: Z51.81 Encounter for therapeutic drug level monitoring (principal); Z79.01 Long term (current) use of anticoagulants | CPT/HCPCS: 85610; 99211 ==

== ENCOUNTER 2025-07-25 09:56 | Outpatient (AMB) | payer MEDICARE, SELFPAY ==
[2025-07-25 10:12] LABS: Prothrombin Time Whole Bld POC 40.8 sec (11.1-13.5); ~PT, ~INR - Anti Coag Clinic 3.4 (0.9-1.1)
--- NOTE | 2025-07-25 10:29 | MHC.OFFVISCO ---
Intake Intake Visit Reasons: Anticoagulation Allergies valsartan Adverse Reaction (Mild, Verified 07/25/25 10:04) Nightmare Medication List - Last Reconciled 07/25/25 by Valeria Jaime RN aspirin (Adult Low Dose Aspirin) 81 mg PO DAILY atorvastatin 20 mg PO DAILY 90 days coenzyme Q10 100 mg PO DAILY metoprolol succinate ER 25 mg PO DAILY 90 days mv,Ca,gph-ztqf-GU-lycopene 8 mg iron- 200 mcg-600 mcg (Centrum Men) 1 tab PO DAILY nifedipine ER 30 mg PO DAILY 30 days pantoprazole 20 mg PO DAILY warfarin () See Protocol Take 2 tabs daily by mouth on Tuesday, Tuesday, Tuesday and 1 tab the other days as directed; Nursing Note INR: 3.4 in therapeutic range Medications and supplements reviewed *Pt insurance covering ensure now - he takes 4/ week plus eat greens and nuts *INR has been in higher range and requesting he decrease dose by 5mg then INR trends back up again, discussed a weekly decrease instead every other week Denies any signs and symptoms of bleeding or bruising or clotting. Bleeding, bruising, clotting discussed Nutritional guidance given keep same diet Dose: decrease to 10mg x 3 days / 5mg x 4 days and recheck 2 week F/U INR: 2 weeks Patient verbalizes understanding of instructions given Anti-Coag Initial Assessment Social Hx Patient Tobacco Use Status: Former Tobacco user alcohol intake: current Alcohol intake frequency: does not drink Coding Level of Care Code Est Patient Level 1 Diagnoses Current use of anticoagulant therapy Z79.01 Results AMB INR Fingerstick AMB INR Fingerstick 3.4 Last Edit by Valeria Jaime RN on 07/25/25 10:18 MANUAL ENTRY Assessment & Plan Assessment & Plan (1) Current use of anticoagulant therapy: Code(s): Z79.01 - [facility] (current) use of anticoagulants Category: Medical
--- OUTSIDE RECORDS SUMMARY | 2025-07-25 11:08 | XMS_ITS | Patient Health Record ---
Author Organization [facility] Address [address] [place] [address] Care Team Providers Care Sample Checker Name Role Phone Demarcus (RETIRED) Corey VIRAMONTES Primary Care Provide r Unavailable Darnell Ty Unavailable [phone] Reason For Referral No Information Plan Of Treatment No Information Insurance Providers Payer Name Payer Address Payer Phone Subscriber Number Group Number Insured Name Patient Relationship to Insured Coverage Start Date Coverage End Date MEDICARE OF [place] [address] [place] [address] [id number] JOSE CORADO Self - patient is the insured [facility] SUPPLEMENTAL PLAN [address] [place] [address] [id number] JOSE CORADO Self - patient is the insured
== END 2025-07-25 10:33 | disposition home or self-care (01) ==
LOC: HO.ACS 09:56
PROVIDERS: PCP Student in an Organized Health Care Education/Training Program; Visit Provider Internal Medicine Medical Oncology
DX: Z79.01 Long term (current) use of anticoagulants (principal)

== ENCOUNTER → 2025-07-25 09:56 | Outpatient (BNVA) | payer MEDICARE, SELFPAY | PROVIDERS: PCP Student in an Organized Health Care Education/Training Program; Visit Provider Internal Medicine Medical Oncology | DX: Z51.81 Encounter for therapeutic drug level monitoring (principal); Z79.01 Long term (current) use of anticoagulants | CPT/HCPCS: 85610; 99211 ==

== ENCOUNTER 2025-08-06 10:06 | Outpatient (AMB) | payer MEDICARE, SELFPAY ==
--- NOTE | 2025-08-06 10:08 | MHC.PC.OV ---
Vital Signs 08/06/25 10:13 Height 5 ft 4.5 in Weight 102 lb BMI 17.2 BP 200/76 H Blood Pressure Location Rt brachial Position Sitting Respiration 16 Pulse 71 Pulse Source Pulse Oximeter Temp 97.6 F Temp Source Temporal Artery Scan Pulse Oximetry (%) 98 Oxygen Delivery Method Room Air Intake Visit Reasons: 1 mo f/u - see comments Fire Alarm Installer Required: No Accompanied by: Self / Same As Patient Allergies valsartan Adverse Reaction (Mild, Verified 08/06/25 10:08) Nightmare Medication List - Last Reconciled 08/06/25 by Obey Malik MD aspirin (Adult Low Dose Aspirin) 81 mg PO DAILY atorvastatin 10 mg PO DAILY coenzyme Q10 100 mg PO DAILY metoprolol succinate ER 25 mg PO DAILY 90 days mv,Ca,zxi-rwat-TM-lycopene 8 mg iron- 200 mcg-600 mcg (Centrum Men) 1 tab PO DAILY pantoprazole 20 mg PO DAILY warfarin (Jantoven) See Protocol Take 2 tabs daily by mouth on Tuesday, Tuesday, Tuesday and 1 tab the other days as directed; Tobacco use date assessed: 01/18/25 Dental Screening Dental Screen Date: 01/18/25 HPI HPI Comments History of Present Illness Details The patient is a 75-year-old male presenting with issues regarding the management of his essential hypertension. During the visit, it was revealed that the patient had not commenced treatment with nifedipine as previously recommended, citing concerns about potential deficits associated with the medication. Instead, the patient reports self-monitoring his blood pressure at home, stating morning readings of 148/80 mmHg and evening readings typically at 138/80 mmHg. However, office blood pressure readings were significantly higher, exceeding 200 mmHg. The patient asserts that his at-home blood pressure is consistent but acknowledges becoming nervous during office visits, which may contribute to elevated readings. The patient also reports dissatisfaction and confusion with previous medication changes, mentioning nightmares when prescribed higher doses of medication. He remains on metoprolol 25 mg but has been hesitant to comply with other recommendations due to past negative experiences. The patient fears potential side effects from new medications, citing previous reactions to changes in prescriptions. Despite this, he expresses confidence in his self-monitored readings and prior stability under long-term physician care. Medical History: - Essential Hypertension - Hyperlipidemia - Anxiety concerning medication effects Surgical History: - Aortic Valve Replacement Medications: - Metoprolol 25 mg for hypertension - Atorvastatin (dosage adjusted by the patient) Social: - Reports feeling stressed and nervous during medical visits - Notes self-monitoring of blood pressure at home with consistent results - Expresses concerns and skepticism regarding new medications [facility] Medical History (Updated 08/06/25 @ 10:48 by Obey Malik MD) GERD (gastroesophageal reflux disease) Mitral valve regurgitation Tricuspid valve regurgitation Blind left eye Anemia Atrial fibrillation HTN (hypertension) Thrombocytopenia Surgical History (Updated 08/06/25 @ 10:47 by Obey Malik MD) History of amputation of left hand H/O mechanical aortic valve replacement Family History (Updated 01/18/25 @ 11:23 by INDER Valverde) Father Cancer of prostate Mother No problems noted. Social History (Updated 01/18/25 @ 11:24 by INDER Valverde) Housing: Apartment Alcohol intake: current Alcohol intake frequency: does not drink Patient Tobacco Use Status: Former Tobacco user e-Cigarette/Vaping Use: Never Used service: No Current occupational status: retired Cognitive needs: Yes (left arm prosthetic) Hearing needs: No Vision needs: Yes (rx glasses) Questionnaire Thrive Questionnaire Date Thrive assessed: 01/18/25 TOYIN-7 AMB Questionnaire TOYIN-7 Date TOYIN - 7 assessed: 01/18/25 Source: Developed by Drs. Darnell Noel, Ragini Antony, Candido Chirstine and colleagues, with an educational mynor from [employer]. Review of Systems Const Details: - Cardiovascular: Reports varying blood pressure levels between home and office readings - Genitourinary: Denies excessive nocturia since reducing atorvastatin All systems reviewed & are unremarkable except as reviewed in HPI and above Physical exam (Primary Care) Vital Signs: Last Vital Signs Temp 97.6 F 08/06/25 10:13 Pulse 71 08/06/25 10:13 Resp 16 08/06/25 10:13 BP 200/76 H 08/06/25 10:13 Pulse Ox 98 08/06/25 10:13 Oxygen Delivery Method Room Air 08/06/25 10:13 BMI result Body Mass Index 17.2 Tobacco/Smoking Status: Tobacco use Status Tobacco use date assessed 01/18/25 08/06/25 10:10 Patient Tobacco Use Status Former Tobacco user 08/06/25 10:10 e-Cigarette/Vaping Use Never Used 08/06/25 10:10 Thrive Assessment: Date of Thrive Assessment Date Thrive assessed 01/18/25 08/06/25 10:10 Const Other: General: Alert and oriented, Well nourished, No acute distress. Eye: Pupils are equal, round and reactive to light, Intact accommodation, Extraocular movements are intact, Normal conjunctiva, Vision unchanged. HENT: Normocephalic, Atraumatic, Tympanic membranes are clear, Normal hearing, Oral mucosa is moist, No pharyngeal erythema, Ear canals patent. Respiratory: Lungs CTA bilaterally, No wheeze, Respirations are non-labored. Cardiovascular: Regular rate, Regular rhythm, S1 auscultated, S2 auscultated, No murmur, Good pulses equal in all extremities, Normal peripheral perfusion, No edema. Gastrointestinal: Soft, Non-tender, Non-distended, Normal bowel sounds, No organomegaly. Musculoskeletal: Normal range of motion, Normal strength, No tenderness, No swelling, No deformity, Normal gait. Integumentary: Warm, Dry, [place], Intact. Neurologic: Alert, Oriented, Normal sensory, Normal motor function, No focal defects, Cranial Nerves II-XII are grossly intact, Normal deep tendon reflexes. Psychiatric: Cooperative, Appropriate mood & affect, Normal judgment. Coding Level of Care Code Est Pt Level 4 (75224) Complex EM visit Add On G2211 Diagnoses Primary hypertension I10 Hypertension type: primary hypertension History of aortic valve replacement Z95.2 Atrial fibrillation, unspecified type I48.91 Atrial fibrillation type: unspecified Current use of anticoagulant therapy Z79.01 Assessment & Plan Assessment & Plan (1) HTN (hypertension): Comment: - The patient's blood pressure remains uncontrolled in the office setting, despite self-reported normal levels at home. - I discussed the importance of using recommended antihypertensives like nifedipine, but the patient is currently non-compliant due to fear of side effects. (Recently prescribed nefidipine, but refused to take medicaitons) - Continued use of metoprolol is noted; however, dosage adjustments should be carefully considered. - Discussed the potential for long-term complications of unmanaged hypertension, including increased risk for stroke and heart disease. - The risks of storke, heart failure, AAA's, kidney disease were discussed witht he patient given his high pressures but he refused to take any further medications and verbalized understanding. Code(s): I10 - Essential (primary) hypertension Category: Medical Qualifiers: Hypertension type: primary hypertension Qualified Code(s): I10 - Essential (primary) hypertension (2) History of aortic valve replacement: Comment: mechanical. coumadin goal inr 2.5-3.5 - Referred to Cardio given prior electronic video games servicer has reteired Code(s): Z95.2 - Presence of prosthetic heart valve Category: Surgical (3) Atrial fibrillation: Comment: - On Warfarin & Metoprolol Succinate Code(s): I48.91 - Unspecified atrial fibrillation Category: Medical Qualifiers: Atrial fibrillation type: unspecified Qualified Code(s): I48.91 - Unspecified atrial fibrillation (4) Current use of anticoagulant therapy: Comment: - Follows with [facility] on warfarin Code(s): Z79.01 - exterminator helper (current) use of anticoagulants Category: Medical Plan: Health Maintenance: - Discussed the importance of routine follow-up with cardiology given valve history. - Emphasized maintaining consistent blood pressure control and adherence to lipid management. Patient was informed and verbally consented to the use of an ambient scribe for clinic note documentation during this visit. Plan During the visit, I emphasized the critical nature of addressing the patient's hypertension, which remains uncontrolled in an office setting. I discussed the importance of pharmacological management, specifically regarding the initiation of nifedipine. The patient expressed hesitations due to prior adverse experiences with medication changes. I highlighted the long-term consequences of untreated hypertension, including heightened risk for stroke and myocardial infarction, and the need for careful monitoring of both blood pressure and lipid levels. We reviewed the patient's history of aortic valve replacement and the pertinence of regular cardiology follow-ups for annual imaging. The patient has requested a cardiology referral, which I will provide, and will follow up with his concerns in six months. Orders: Referrals Cardiology Referral Z95.2 - Presence of prosthetic heart valve Patient Instructions: - Continue taking Metoprolol 25 mg as prescribed. - Consider discussing the use of nifedipine for better blood pressure control. - Monitor blood pressure at home, noting any changes or concerns. - Follow a heart-healthy lifestyle, including diet and exercise, to manage cardiovascular health. - Ensure follow-up with cardiology for heart imaging as scheduled. - Return to the office in six months for further evaluation and management.
[2025-08-06 10:13] VITALS: BP 200/76; PULSE 71; RESP 16; TEMP 36.4; O2SAT 98; BMI 17.2
--- OUTSIDE RECORDS SUMMARY | 2025-08-06 11:38 | XMS_ITS | Patient Health Record ---
Author Organization [facility] Address [address] [place] [address] Care Team Providers Care Aoc Operations Intelligence Chief Name Role Phone Demarcus (RETIRED) Corey VIRAMONTES Primary Care Provide r Unavailable Darnell Ty Unavailable [phone] Reason For Referral No Information Plan Of Treatment No Information Insurance Providers Payer Name Payer Address Payer Phone Subscriber Number Group Number Insured Name Patient Relationship to Insured Coverage Start Date Coverage End Date MEDICARE OF [place] [address] [place] [address] [id number] JOSE CORADO Self - patient is the insured [facility] SUPPLEMENTAL PLAN [address] [place] [address] [id number] JOSE CORADO Self - patient is the insured
== END 2025-08-06 10:48 | disposition home or self-care (01) ==
LOC: HO.HMCHD 10:07
PROVIDERS: PCP Internal Medicine; Visit Provider Student in an Organized Health Care Education/Training Program
DX: I10 Essential (primary) hypertension (principal); Z95.2 Presence of prosthetic heart valve; I48.91 Unspecified atrial fibrillation; Z79.01 Long term (current) use of anticoagulants

== ENCOUNTER → 2025-08-06 10:06 | Outpatient (BNVA) | payer MEDICARE, SELFPAY | PROVIDERS: PCP Internal Medicine; Visit Provider Student in an Organized Health Care Education/Training Program | DX: I10 Essential (primary) hypertension (principal); I48.91 Unspecified atrial fibrillation; Z95.2 Presence of prosthetic heart valve; Z79.01 Long term (current) use of anticoagulants; Z79.899 Other long term (current) drug therapy | CPT/HCPCS: 99212 ==

== ENCOUNTER 2025-08-08 10:00 | Outpatient (AMB) | payer MEDICARE, SELFPAY ==
[2025-08-08 10:09] LABS: Prothrombin Time Whole Bld POC 41.5 sec (11.1-13.5); ~PT, ~INR - Anti Coag Clinic 3.5 (0.9-1.1)
--- NOTE | 2025-08-08 10:22 | MHC.OFFVISCO ---
Intake Intake Visit Reasons: Anticoagulation Allergies valsartan Adverse Reaction (Mild, Verified 08/08/25 10:02) Nightmare Medication List - Last Reconciled 08/08/25 by Valeria Jaime RN aspirin (Adult Low Dose Aspirin) 81 mg PO DAILY atorvastatin 10 mg PO DAILY coenzyme Q10 100 mg PO DAILY metoprolol succinate ER 25 mg PO DAILY 90 days mv,Ca,ioo-qkpc-PJ-lycopene 8 mg iron- 200 mcg-600 mcg (Centrum Men) 1 tab PO DAILY pantoprazole 20 mg PO DAILY warfarin () See Protocol Take 2 tabs daily by mouth on Tuesday, Tuesday, Tuesday and 1 tab the other days as directed; Nursing Note INR: 3.5 in therapeutic range Medications and supplements reviewed INR TRENDING HIGHER - recently had more cinnamon recently could contribute to elevated INR -less active in cooler weather -Eats healthy and has 4 greens / week Denies any signs and symptoms of bleeding or bruising or clotting. Bleeding, bruising, clotting discussed Nutritional guidance given Dose: 10mg x 3 days/ 5mg x 4 days F/U INR: 2 weeks Patient verbalizes understanding of instructions given Anti-Coag Initial Assessment Social Hx Patient Tobacco Use Status: Former Tobacco user alcohol intake: current Alcohol intake frequency: does not drink Coding Level of Care Code Est Patient Level 1 Diagnoses Current use of anticoagulant therapy Z79.01 Assessment & Plan Assessment & Plan (1) Current use of anticoagulant therapy: Code(s): Z79.01 - [facility] (current) use of anticoagulants Category: Medical
--- OUTSIDE RECORDS SUMMARY | 2025-08-08 11:52 | XMS_ITS | Patient Health Record ---
Author Organization [facility] Address [address] [place] [address] Care Team Providers Care Special Effects Person Name Role Phone Demarcus (RETIRED) Corey VIRAMONTES Primary Care Provide r Unavailable Darnell Ty Unavailable [phone] Reason For Referral No Information Plan Of Treatment No Information Insurance Providers Payer Name Payer Address Payer Phone Subscriber Number Group Number Insured Name Patient Relationship to Insured Coverage Start Date Coverage End Date MEDICARE OF [place] [address] [place] [address] [id number] JOSE CORADO Self - patient is the insured [facility] SUPPLEMENTAL PLAN [address] [place] [address] [id number] JOSE CORADO Self - patient is the insured
== END 2025-08-08 10:31 | disposition home or self-care (01) ==
LOC: HO.ACS 10:00
PROVIDERS: PCP Internal Medicine; Visit Provider Internal Medicine Medical Oncology
DX: Z79.01 Long term (current) use of anticoagulants (principal)

== ENCOUNTER → 2025-08-08 10:00 | Outpatient (BNVA) | payer MEDICARE, SELFPAY | PROVIDERS: PCP Internal Medicine; Visit Provider Internal Medicine Medical Oncology | DX: Z95.4 Presence of other heart-valve replacement (principal); Z51.81 Encounter for therapeutic drug level monitoring; Z79.01 Long term (current) use of anticoagulants | CPT/HCPCS: 85610; 99211 ==

== ENCOUNTER 2025-08-22 10:02 | Outpatient (AMB) | payer MEDICARE, SELFPAY ==
[2025-08-22 10:09] LABS: Prothrombin Time Whole Bld POC 39.3 sec (11.1-13.5); ~PT, ~INR - Anti Coag Clinic 3.3 (0.9-1.1)
--- NOTE | 2025-08-22 10:16 | MHC.OFFVISCO ---
Intake Intake Visit Reasons: Anticoagulation Allergies valsartan Adverse Reaction (Mild, Verified 08/22/25 10:04) Nightmare Medication List - Last Reconciled 08/22/25 by Joelle Connor, DARIO aspirin (Adult Low Dose Aspirin) 81 mg PO DAILY atorvastatin 10 mg PO DAILY coenzyme Q10 100 mg PO DAILY metoprolol succinate ER 25 mg PO DAILY 90 days mv,Ca,thj-mepr-AV-lycopene 8 mg iron- 200 mcg-600 mcg (Centrum Men) 1 tab PO DAILY pantoprazole 20 mg PO DAILY warfarin () See Protocol Take 2 tabs daily by mouth on Tuesday, Tuesday, Tuesday and 1 tab the other days as directed; Nursing Note INR: 3.3 in therapeutic range of 2.5-3.5 Medications and supplements reviewed No changes in health, diet, medications, or supplements, Denies any signs and symptoms of bleeding or bruising or clotting. Bleeding, bruising, clotting discussed Nutritional guidance given Dose: 5mg X 4 days and 10mg X 3 days (M/W/) F/U INR: 2 weeks Patient verbalizes understanding of instructions given Anti-Coag Initial Assessment Social Hx Patient Tobacco Use Status: Former Tobacco user alcohol intake: current Alcohol intake frequency: does not drink Coding Level of Care Code Est Patient Level 1 Diagnoses Current use of anticoagulant therapy Z79.01 Assessment & Plan Assessment & Plan (1) Current use of anticoagulant therapy: Code(s): Z79.01 - [facility]-way (current) use of anticoagulants Category: Medical
--- OUTSIDE RECORDS SUMMARY | 2025-08-22 12:03 | XMS_ITS | Patient Health Record ---
Author Organization [facility] Address [address] [place] [address] Care Team Providers Care Nuclear Powerplant Supervisor Name Role Phone Demarcus (RETIRED) Corey VIRAMONTES Primary Care Provide r Unavailable Darnell Ty Unavailable [phone] Reason For Referral No Information Plan Of Treatment No Information Insurance Providers Payer Name Payer Address Payer Phone Subscriber Number Group Number Insured Name Patient Relationship to Insured Coverage Start Date Coverage End Date MEDICARE OF [place] [address] [place] [address] [id number] JOSE CORADO Self - patient is the insured [facility] SUPPLEMENTAL PLAN [address] [place] [address] [phone] [id number] JOSE CORADO Self - patient is the insured
== END 2025-08-22 10:20 | disposition home or self-care (01) ==
LOC: HO.ACS 10:02
PROVIDERS: PCP Internal Medicine; Visit Provider Internal Medicine Medical Oncology
DX: Z79.01 Long term (current) use of anticoagulants (principal)

== ENCOUNTER → 2025-08-22 10:02 | Outpatient (BNVA) | payer MEDICARE, SELFPAY | PROVIDERS: PCP Internal Medicine; Visit Provider Internal Medicine Medical Oncology | DX: Z95.2 Presence of prosthetic heart valve (principal); Z79.01 Long term (current) use of anticoagulants; Z51.81 Encounter for therapeutic drug level monitoring | CPT/HCPCS: 85610; 99211 ==

== ENCOUNTER 2025-09-05 09:56 | Outpatient (AMB) | payer MEDICARE, SELFPAY ==
[2025-09-05 10:18] LABS: Prothrombin Time Whole Bld POC 39.5 sec (11.1-13.5); ~PT, ~INR - Anti Coag Clinic 3.3 (0.9-1.1)
--- NOTE | 2025-09-05 10:20 | MHC.OFFVISCO ---
Intake Intake Visit Reasons: Anticoagulation Allergies valsartan Adverse Reaction (Mild, Verified 09/05/25 10:13) Nightmare Medication List - Last Reconciled 09/05/25 by Joelle Connor, DARIO aspirin (Adult Low Dose Aspirin) 81 mg PO DAILY atorvastatin 10 mg PO DAILY coenzyme Q10 100 mg PO DAILY metoprolol succinate ER 25 mg PO DAILY 90 days mv,Ca,jel-cvkz-LB-lycopene 8 mg iron- 200 mcg-600 mcg (Centrum Men) 1 tab PO DAILY pantoprazole 20 mg PO DAILY warfarin () See Protocol Take 2 tabs daily by mouth on Tuesday, Tuesday, Tuesday and 1 tab the other days as directed; Nursing Note INR: 3.3 in therapeutic range of 2.5-3.5 Medications and supplements reviewed No changes in health, diet, medications, or supplements, Denies any signs and symptoms of bleeding or bruising or clotting. Bleeding, bruising, clotting discussed Nutritional guidance given Dose: 5mg X 4 days and 10mg X 3 days (M/W/F) F/U INR: 4 weeks Patient verbalizes understanding of instructions given Anti-Coag Initial Assessment Social Hx Patient Tobacco Use Status: Former Tobacco user alcohol intake: current Alcohol intake frequency: does not drink Coding Level of Care Code Est Patient Level 1 Diagnoses Current use of anticoagulant therapy Z79.01 Assessment & Plan Assessment & Plan (1) Current use of anticoagulant therapy: Code(s): Z79.01 - senior living (current) use of anticoagulants Category: Medical
--- OUTSIDE RECORDS SUMMARY | 2025-09-05 11:48 | XMS_ITS | Patient Health Record ---
Author Organization [facility] Address [address] [place] [address] Care Team Providers Care Remediation Technician Name Role Phone Demarcus (RETIRED) Corey VIRAMONTES Primary Care Provide r Unavailable Darnell Ty Unavailable [phone] Reason For Referral No Information Plan Of Treatment No Information Insurance Providers Payer Name Payer Address Payer Phone Subscriber Number Group Number Insured Name Patient Relationship to Insured Coverage Start Date Coverage End Date MEDICARE OF [place] [address] [place] [address] [id number] JOSE CORADO Self - patient is the insured [facility] [employer] [address] [place] [address] [id number] JOSE CORADO Self - patient is the insured
== END 2025-09-05 10:35 | disposition home or self-care (01) ==
LOC: HO.ACS 09:56
PROVIDERS: PCP Internal Medicine; Visit Provider Internal Medicine Medical Oncology
DX: Z79.01 Long term (current) use of anticoagulants (principal)

== ENCOUNTER → 2025-09-05 09:56 | Outpatient (BNVA) | payer MEDICARE, SELFPAY | PROVIDERS: PCP Internal Medicine; Visit Provider Internal Medicine Medical Oncology | DX: Z95.2 Presence of prosthetic heart valve (principal); Z51.81 Encounter for therapeutic drug level monitoring; Z79.01 Long term (current) use of anticoagulants | CPT/HCPCS: 85610; 99211 ==

== ENCOUNTER 2025-09-26 10:30 | Outpatient (AMB) | payer MEDICARE, SELFPAY ==
[2025-09-26 10:46] LABS: Prothrombin Time Whole Bld POC 45.6 sec (11.1-13.5); ~PT, ~INR - Anti Coag Clinic 3.8 (0.9-1.1)
--- NOTE | 2025-09-26 10:52 | MHC.OFFVISCO ---
Intake Intake Visit Reasons: Anticoagulation Allergies valsartan Adverse Reaction (Mild, Verified 09/26/25 10:37) Nightmare Medication List - Last Reconciled 09/26/25 by Valeria Jaime RN aspirin (Adult Low Dose Aspirin) 81 mg PO DAILY atorvastatin 10 mg PO DAILY coenzyme Q10 100 mg PO DAILY metoprolol succinate ER 25 mg PO DAILY 90 days mv,Ca,zkz-dxqn-JQ-lycopene 8 mg iron- 200 mcg-600 mcg (Centrum Men) 1 tab PO DAILY pantoprazole 20 mg PO DAILY warfarin () See Protocol Take 2 tabs daily by mouth on Tuesday, Tuesday, Tuesday and 1 tab the other days as directed; Nursing Note INR: 3.8 just out of therapeutic range- ate cranberry sauce Medications and supplements reviewed No changes in health, diet, medications, or supplements, Denies any signs and symptoms of bleeding or bruising or clotting. Bleeding, bruising, clotting discussed Nutritional guidance given - greenmalika today Dose: decrease today's dose to 2.5mg then resume usual dose 10mg mwf/ 5mg x 4 days F/U INR: 2 weeks Patient verbalizes understanding of instructions given Anti-Coag Initial Assessment Social Hx Patient Tobacco Use Status: Former Tobacco user alcohol intake: current Alcohol intake frequency: does not drink Coding Level of Care Code Est Patient Level 1 Diagnoses Current use of anticoagulant therapy Z79.01 Results AMB INR Fingerstick AMB INR Fingerstick 3.8 Last Edit by Valeria Jaime RN on 09/26/25 10:49 manual entry Assessment & Plan Assessment & Plan (1) Current use of anticoagulant therapy: Code(s): Z79.01 - custodial (current) use of anticoagulants Category: Medical
== END 2025-09-26 10:55 | disposition home or self-care (01) ==
LOC: HO.ACS 10:30
PROVIDERS: PCP Internal Medicine; Visit Provider Internal Medicine Medical Oncology
DX: Z79.01 Long term (current) use of anticoagulants (principal)

== ENCOUNTER → 2025-09-26 10:30 | Outpatient (BNVA) | payer MEDICARE, SELFPAY | PROVIDERS: PCP Internal Medicine; Visit Provider Internal Medicine Medical Oncology | DX: Z79.01 Long term (current) use of anticoagulants (principal) | CPT/HCPCS: 85610; 99211 ==

== ENCOUNTER 2025-10-10 09:55 | Outpatient (AMB) | payer MEDICARE, SELFPAY ==
[2025-10-10 10:14] LABS: Prothrombin Time Whole Bld POC 34.4 sec (11.1-13.5); ~PT, ~INR - Anti Coag Clinic 2.9 (0.9-1.1)
--- NOTE | 2025-10-10 10:22 | MHC.OFFVISCO ---
Intake Intake Visit Reasons: Anticoagulation Allergies valsartan Adverse Reaction (Mild, Verified 10/10/25 10:16) Nightmare Medication List - Last Reconciled 10/10/25 by Valeria Jaime RN aspirin (Adult Low Dose Aspirin) 81 mg PO DAILY atorvastatin 10 mg PO DAILY coenzyme Q10 100 mg PO DAILY metoprolol succinate ER 25 mg PO DAILY 90 days mv,Ca,fio-nqsj-CF-lycopene 8 mg iron- 200 mcg-600 mcg (Centrum Men) 1 tab PO DAILY pantoprazole 20 mg PO DAILY warfarin () See Protocol Take 2 tabs daily by mouth on Tuesday, Tuesday, Tuesday and 1 tab the other days as directed; Nursing Note INR: 2.9 in therapeutic range Medications and supplements reviewed No changes in health, diet, medications, or supplements, Denies any signs and symptoms of bleeding or bruising or clotting. Bleeding, bruising, clotting discussed Nutritional guidance given Dose: 10MG X 3 DAYS/ 5MG X 4 DAYS F/U INR: 3 WEEKS Patient verbalizes understanding of instructions given Anti-Coag Initial Assessment Social Hx Patient Tobacco Use Status: Former Tobacco user alcohol intake: current Alcohol intake frequency: does not drink Coding Level of Care Code Est Patient Level 1 Diagnoses Current use of anticoagulant therapy Z79.01 Assessment & Plan Assessment & Plan (1) Current use of anticoagulant therapy: Code(s): Z79.01 - supervisor intermediates (current) use of anticoagulants Category: Medical
== END 2025-10-10 10:24 | disposition home or self-care (01) ==
LOC: HO.ACS 09:55
PROVIDERS: PCP Internal Medicine; Visit Provider Internal Medicine Medical Oncology
DX: Z79.01 Long term (current) use of anticoagulants (principal)

== ENCOUNTER → 2025-10-10 09:55 | Outpatient (BNVA) | payer MEDICARE, SELFPAY | PROVIDERS: PCP Internal Medicine; Visit Provider Internal Medicine Medical Oncology | DX: Z95.2 Presence of prosthetic heart valve (principal); Z79.01 Long term (current) use of anticoagulants; Z51.81 Encounter for therapeutic drug level monitoring | CPT/HCPCS: 85610; 99211 ==